=== PATIENT | female | born 1955 | race Caucasian/White ===

== ENCOUNTER → 2016-07-16 | Outpatient (CLI) | payer BC ==
--- NOTE | 2016-07-16 08:32 | MR ---
EXAMINATION TYPE: MR cervical spine wo/w con DATE OF EXAM: 07/16/2016 8:00 AM COMPARISON: 12/11/2013 HISTORY: 57-year-old female Radiculopathy, Multiple sclerosis, HERRMANN. Technique: Multiplanar, multisequence images of the cervical spine were obtained before and after adm inistration of 14 mL intravenous MultiHance gadolinium contrast. FINDINGS: No craniocervical junction abnormality, predental space widening, or prevertebral soft tissue swellin g. 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 Moderate multilevel degenerative disc disease characterized by disc desiccation and disc osteophyte c omplex formation. Additional scattered facet and uncovertebral joint arthropathy. Alignment is maintained. At C2-C3, there is bilateral facet arthropathy without significant spinal canal or neuroforaminal shukri nosis. At C3-C4, there is disc osteophyte complex with uncovertebral joint and facet arthropathy. Changes re sult in continued moderate to severe spinal canal stenosis with cord compression and questionable sli ght increased cord signal, sagittal T2 image 7. This is not clearly confirmed on the axial series. No definite suspicious enhancement of the cervical cord when correlated with the axial postcontrast ser ies. There is mild right-sided neuroforaminal stenosis. At C4-C5, there is disc osteophyte complex with uncovertebral joint and facet degenerative change. Ch anges result in mild to moderate right neuroforaminal stenosis with continued moderate spinal canal s tenosis with abutment and flattening of both the dorsal and ventral cord but no discrete cord signal abnormality. At C5-C6, there is broad-based disc osteophyte complex with contiguous uncovertebral joint arthropath y especially on the right. Additional facet arthropathy. Changes result in moderate right neuroforami nal stenosis and continued moderate spinal canal stenosis with abutment and slight flattening of both the dorsal and ventral cord. No discrete cord signal abnormality. At the congenitally fused C6-C7 level, no significant spinal canal or neuroforaminal stenosis. At C7-T1, there is facet degenerative change and uncovertebral joint spurring. Changes result in mild narrowing of the right-sided neuroforamen and mild spinal canal stenosis that does not significantly abut or flatten the cervical cord. No prevertebral or paravertebral soft tissue abnormality seen. IMPRESSION: 1. Redemonstrated moderate multilevel disc/endplate degenerative change with disc osteophyte complex formation particularly from C3 through C6 levels. Additional facet and uncovertebral joint arthropath y. 2. Changes result in similar moderate to severe spinal canal stenosis at C3-C4 with cord compression. Possible early myelopathic cord signal change at this level not clearly confirmed on the axial serie s. 3. Similar moderate spinal canal stenoses at C4-C5 and C5-C6 mildly impinging the cord. No discrete c ord signal change at these levels. 4. Variable mild to moderate neuroforaminal stenoses as outlined above, greatest on the right at C5-C 6.
== END ==
LOC: RADMRIMAIN 07:16
PROVIDERS: ATTEND Psychiatry & Neurology Neurology
DX: M48.02 Spinal stenosis, cervical region (principal); M99.71 Connective tissue and disc stenosis of intervertebral foramina of cervical region; M50.10 Cervical disc disorder with radiculopathy, unspecified cervical region; M46.82 Other specified inflammatory spondylopathies, cervical region
CPT/HCPCS: 72156; A9577

== ENCOUNTER → 2016-07-28 | Outpatient (CLI) | payer BC ==
--- NOTE | 2016-07-28 08:23 | US ---
EXAMINATION TYPE: US abdomen complete DATE OF EXAM: 07/28/2016 7:33 AM COMPARISON: CT abdomen March 22, 2010 CLINICAL HISTORY: Abd Pain R10.9. EXAM MEASUREMENTS: Liver Length: 16.9 cm Gallbladder Wall: 0.3 cm CBD: 0.3 cm Spleen: 10.5 cm Right Kidney: 9.4 x 4.1 x 4.5 cm Left Kidney: 9.1 x 4.4 x 4.8 cm TECHNOLOGIST IMPRESSION: Pancreas: visualized portions wnl, limited by overlying midline bowel gas Liver: wnl Gallbladder: multiple echogenic shadowing stones Evidence for sonographic Larios's sign: no CBD: visualized portions wnl, limited by overlying bowel gas Spleen: wnl Right Kidney: 1.7 x 1.5 x 1.4cm hypoechoic area inferior pole Left Kidney: visualized portions wnl, superior pole limited by overlying bowel gas Upper IVC: wnl Abd Aorta: visualized portions wnl, mid portion limited by overlying bowel gas The liver is homogenous. The intrahepatic portion of the IVC and visualized abdominal aorta are with in normal limits. There are multiple mobile shadowing gallstones. There is no pericholecystic fluid collection or abnormal gallbladder wall thickening Common bile duct is unremarkable. The visualized portions of the pancreas are homogenous. The spleen is unremarkable. Kidneys are symmetric and blanca e of hydronephrosis. A 1.7 cm slightly lobulated anechoic lesion or pole level right kidney is felt t o reflect simple cyst correlates with prior CT. IMPRESSION: Suboptimal study as noted above, there are gallstones without secondary ultrasound eviden ce for acute cholecystitis
== END | disposition home or self-care (01) ==
LOC: RADUSWWP 07:01
PROVIDERS: ATTEND Family Medicine
DX: K80.20 Calculus of gallbladder without cholecystitis without obstruction (principal)
CPT/HCPCS: 76700

== ENCOUNTER → 2016-09-19 | Outpatient (CLI) | payer BC ==
--- NOTE | 2016-09-19 11:30 | US ---
EXAMINATION TYPE: US thyroid st tissue head/neck DATE OF EXAM: 09/19/2016 11:03 AM COMPARISON: NONE CLINICAL HISTORY: R22.0 swelling,mass. Abnormal thyroid labs GLAND SIZE: Right Lobe: 2.4 x 0.8 x 0.7 cm Overall Parenchyma: heterogenous Left Lobe: 1.7 x 0.5 x 0.6 cm Overall Parenchyma: heterogeneous Isthmus Thickness: 0.2 cm NODULES RIGHT: # of nodules measured on right: 0 LEFT: # of nodules measured on left: 0 ISTHMUS: # of nodules measured in the isthmus: 0 Bilateral neck scanned, lymph node left neck = 1.1 x 0.7cm Difficult to visualize thyroid gland bilaterally due to its small size IMPRESSION: NORMAL THYROID ULTRASOUND.
--- NOTE | 2016-09-19 15:49 | NM ---
EXAMINATION TYPE: NM parathyroid w/spect DATE OF EXAM: 09/19/2016 3:31 PM COMPARISON: Same day thyroid ultrasound. MRI cervical spine July 16, 2016. HISTORY: Abnormal lab values TECHNIQUE: Following administration of 25.2 mCi Tc99m Sestamibi. Anterior projection images of the neck and ches t were obtained 10 minutes and 3 hours post injection. SPECT images of the neck and chest were obtai senait and reconstructed in three axes. FINDINGS: There is satisfactory uptake in small size thyroid gland. There is focal area of nonwashout at level of left thyroid lobe confirmed on SPECT imaging near lower pole level in which focal parath yroid adenoma cannot be excluded. No corresponding abnormal extra thyroid soft tissue nodule however is clearly seen on comparison same day ultrasound and recent MRI cervical spine. Normal uptake: There is physiological tracer uptake in the salivary glands. IMPRESSION: Abnormal nuclear medicine study in which parathyroid adenoma near level of lower pole left thyroid ca nnot be excluded though no corresponding abnormality is seen on same day ultrasound or recent MRI cer vical spine. Small thyroid gland is noted.
== END | disposition home or self-care (01) ==
LOC: RADUSMAIN 10:33
PROVIDERS: ATTEND Surgery
DX: R94.6 Abnormal results of thyroid function studies (principal); R22.0 Localized swelling, mass and lump, head
CPT/HCPCS: 76536; 78071

== ENCOUNTER 2016-10-04 11:34 | Day surgery (SDC) | payer BC ==
[2016-10-03 08:56] VITALS: BMI 31.3
[~2016-10-04 11:34] MED LIST: DEXAMETHASONE SOD PHOSPHATE 10 MG/ML 1 ML VIAL IV ONE; LACTATED RINGERS 1,000 ML IV SCH; ONDANSETRON 4 MG/2 ML VIAL IVP ONE; Pre Op ABX Message 1 EACH MISC MISCELLANE ONE
[2016-10-04] MEDS ORDERED: HEPARIN SODIUM,PORCINE 5,000 UNIT/ML 1 ML VIAL SQ ONE (12:55)
[2016-10-04] MEDS ORDERED: ONDANSETRON 4 MG/2 ML VIAL ONE (13:34)
[2016-10-04] MEDS ORDERED: MIDAZOLAM 2 MG/2 ML VIAL ONE (13:34)
[2016-10-04] MEDS ORDERED: SUCCINYLCHOLINE CHLORIDE 100 MG/5 ML SYR IV ONE (13:34)
[2016-10-04] MEDS ORDERED: NEOSTIGMINE 1 MG/ML 10 ML VIAL ONE (13:34)
[2016-10-04] MEDS ORDERED: PROPOFOL 10 MG/ML 20 ML VIAL IV ONE (13:34)
[2016-10-04] MEDS ORDERED: ROCURONIUM BROMIDE 10 MG/ML 10 ML VIAL IV ONE (13:34)
[2016-10-04] MEDS ORDERED: LIDOCAINE 1% INJ 10MG/ML (20 ML MDV) ONE (13:34)
[2016-10-04] MEDS ORDERED: ceFAZolin 1,000 MG VIAL ONE (13:34)
[2016-10-04] MEDS ORDERED: GLYCOPYRROLATE 0.2 MG/ML 2 ML VIAL ONE (13:34)
[2016-10-04] MEDS ORDERED: fentaNYL (PF) 50 MCG/ML 2 ML AMP ONE (13:34)
[2016-10-04] MEDS ORDERED: SODIUM CHLORIDE 0.9% 50 ML with ceFAZolin 2,000 MG IV ONE ×2 (13:46)
[2016-10-04] MEDS ORDERED: LIDOCAINE 1% (PF) 10 MG/ML (30 ML SDV) SQ ONE ×2 (13:48)
[2016-10-04] MEDS ORDERED: LACTATED RINGERS 1,000 ML IV ONE (13:52)
--- NOTE | 2016-10-04 14:53 | P.PCN ---
Date of Procedure: 10/04/16 Preoperative Diagnosis: Symptomatic cholelithiasis Postoperative Diagnosis: Same Procedure(s) Performed: Laparoscopic cholecystectomy Implants: Anesthesia: LATOSHA Surgeon: Sydney Clarke Estimated Blood Loss (ml): 10 IV fluids (ml): 550 Pathology: other (Gallbladder) Condition: stable Disposition: PACU Indications for Procedure: Symptomatic cholelithiasis Operative Findings: Distended gallbladder with cholelithiasis Description of Procedure: Patient was taken to the operating room and following induction of general anesthesia the abdomen was prepped and draped in a sterile fashion. Infraumbilical incision was made and carried down to the fascia of the anterior abdominal wall. The fascia was elevated and was opened. The balloon trocar was placed under direct visualization. The abdomen was insufflated to 15 mmHg pressure. #5 port was placed in the right upper quadrant laterally and the gallbladder was retracted and a second #5 port was placed in the mid clavicular line for retraction of the gallbladder near the neck. A #10 port was placed just to the left of the midline in the midepigastric area. Through this port the cystic duct and cystic artery were dissected free. The cystic duct and cystic artery were well identified this was stapled and divided. The gallbladder was dissected free from the liver bed using the electrocautery device. A posterior arterial branch was noted entering the gallbladder and this was stapled. The gallbladder continued to be dissected free until it was free from the liver bed, before final removal the Was then completely removed from the gallbladder fossa and placed in a Pleatman sac. Was brought out through the #10 port site. At this time the #10 port site was closed using a Mikey Lerner device. The #5 ports were removed under direct visualization no evidence of bleeding was identified. The infraumbilical trocar was removed and the fascia was closed using 0 Vicryl suture. Skin incisions were closed with 4-0 Monocryl. The patient tolerated the procedure in stable condition. All instrument and sponge counts were correct at the end of the case. Following this the gallbladder fossa was well irrigated and a small area of oozing was noted on the liver bed and this was cauterized. Following this no further oozing or bleeding was identified. The gallbladder was sent to pathology. Patient tolerated the procedure in stable condition.
--- NOTE | 2016-10-04 14:54 | P.DS ---
Providers Attending physician: Sydney Clarke Primary care physician: Stated None Plan - Discharge Summary New Discharge Prescriptions: HYDROcodone/APAP 5-325MG [[place] 5] 1 - 2 each PO Q4H PRN #20 tab PRN Reason: Pain Discharge Medication List Alendronate Sodium [Fosamax] 70 mg PO WEEKLY 12/03/13 [History] Clopidogrel [Plavix] 75 mg PO DAILY 12/03/13 [History] Diltiazem Cd [Cardizem CD] 240 mg PO QAM 12/03/13 [History] Hydrocodone/Acetaminophen [Vicodin Es 7.5-300 mg Tablet] 1 each PO Q6HR [History] Meclizine [Antivert] 25 mg PO BID PRN 12/03/13 [History] Modafinil [Provigil] 200 mg PO QAM 12/03/13 [History] Nortriptyline HCl [Pamelor] 10 mg PO HS 12/03/13 [History] Olmesartan [Benicar] 20 mg PO QAM 12/03/13 [History] Omeprazole [PriLOSEC] 20 mg PO AC-BRKFST 12/03/13 [History] Cholecalciferol [Vitamin D3] 2,000 unit PO DAILY 11/13/15 [History] Levothyroxine Sodium [Synthroid] 125 mcg PO DAILY 11/13/15 [History] HYDROcodone/APAP 5-325MG [[place] 5] 1 - 2 each PO Q4H PRN #20 tab 10/04/16 [Rx] Follow up Appointment(s)/Referral(s): Sydney Clarke MD [STAFF PHYSICIAN] - 1 Week Discharge Disposition: HOME SELF-CARE
[2016-10-04 15:09] VITALS: TEMP 98
[2016-10-04] MEDS: HYDROmorphone 1 MG/ML 1 ML SYRINGE IVP PRN ×2 (15:15→15:28)
[2016-10-04 15:24] VITALS: RESP 18
[2016-10-04] MEDS ORDERED: HYDROcodone/APAP 5-325MG 1 EACH TAB PO ONE (16:20)
[2016-10-04 16:46] VITALS: BP 119/78; PULSE 85
== END 2016-10-04 17:29 | disposition home or self-care (01) ==
LOC: OR 11:34
PROVIDERS: ATTEND Surgery
DX: K80.10 Calculus of gallbladder with chronic cholecystitis without obstruction (principal); I10 Essential (primary) hypertension; E21.0 Primary hyperparathyroidism; I69.351 Hemiplegia and hemiparesis following cerebral infarction affecting right dominant side; Z82.3 Family history of stroke; G35 Multiple sclerosis; K21.9 Gastro-esophageal reflux disease without esophagitis; M81.0 Age-related osteoporosis without current pathological fracture; Z79.02 Long term (current) use of antithrombotics/antiplatelets; Z79.899 Other long term (current) drug therapy; Z88.1 Allergy status to other antibiotic agents; Z88.2 Allergy status to sulfonamides; Z88.8 Allergy status to other drugs, medicaments and biological substances
CPT/HCPCS: 88304; 47562; J2250; J1644; J1100; J2710; J2405; J0690 ×2; J2001 ×2; J3010; J1170; J0330; J2704

== ENCOUNTER 2016-12-25 11:50 | Emergency (ER) | payer BC ==
[2016-12-25] MEDS ORDERED: DIPH,PERTUS(ACELL)TETVAC-LF 0.5 ML VIAL IM ONE (12:24)
--- NOTE | 2016-12-25 12:56 | XR ---
EXAMINATION TYPE: XR ankle complete RT , 3 VIEWS DATE OF EXAM ORDERED: 12/25/2016 HISTORY: Pain. COMPARISON: None. FINDINGS: No fracture, dislocation or joint effusion is seen. IMPRESSION: NORMAL RIGHT ANKLE.
[2016-12-25 13:22] VITALS: BP 150/84; PULSE 70; RESP 18; TEMP 98.2
--- NOTE | 2016-12-25 13:27 | ED ---
General Adult HPI - General Chief complaint: Extremity Injury, Lower Stated complaint: RT ANLKE INJURY FROM FALL DOWN 2 STEPS Time Seen by Provider: 12/25/16 12:10 Source: patient, family, RN notes reviewed Mode of arrival: wheelchair Limitations: no limitations - History of Present Illness Initial comments: 60-year-old female presents status post trip and fall. Patient was going down steps and tripped rolling her right ankle. Pain is sharp in nature, minimal with no movement. Patient was able to walk after the accident. Patient states she bent her ankle towards the inside. Denies any other significant trauma. She does have an abrasion noted on the left knee. Denies back pain denies abdominal pain. Denies chest pain or shortness of breath. Denies head or neck injury. There is no loss of consciousness. - Related Data Home Medications Medication Instructions Recorded Confirmed Alendronate Sodium [Fosamax] 70 mg PO WEEKLY 12/03/13 10/04/16 Clopidogrel [Plavix] 75 mg PO DAILY 12/03/13 10/04/16 Diltiazem Cd [Cardizem CD] 240 mg PO QAM 12/03/13 10/04/16 Hydrocodone/Acetaminophen [Vicodin 1 each PO Q6HR 12/03/13 10/04/16 Es 7.5-300 mg Tablet] Meclizine [Antivert] 25 mg PO BID PRN 12/03/13 10/04/16 Modafinil [Provigil] 200 mg PO QAM 12/03/13 10/04/16 Nortriptyline HCl [Pamelor] 10 mg PO HS 12/03/13 10/04/16 Olmesartan [Benicar] 20 mg PO QAM 12/03/13 10/04/16 Omeprazole [PriLOSEC] 20 mg PO AC-BRKFST 12/03/13 10/04/16 Cholecalciferol [Vitamin D3] 2,000 unit PO DAILY 11/13/15 10/04/16 Levothyroxine Sodium [Synthroid] 125 mcg PO DAILY 11/13/15 10/04/16 Previous Rx's Medication Instructions Recorded HYDROcodone/APAP 5-325MG [[place] 5] 1 - 2 each PO Q4H PRN #20 tab 10/04/16 Allergies Allergy/AdvReac Type Severity Reaction Status Date / Time doxycycline Allergy upset Verified 12/25/16 12:02 stomach doxycycline hyclate Allergy Vomiting Verified 12/25/16 12:02 [From Vibra-Tabs] Sulfa (Sulfonamide Allergy Vomiting Verified 12/25/16 12:02 Antibiotics) isosorbide [From Imdur] AdvReac headache Verified 12/25/16 12:02 Review of Systems ROS Statement: Those systems with pertinent positive or pertinent negative responses have been documented in the HPI. ROS Other: All systems not noted in ROS Statement are negative. Past Medical History Past Medical History: CVA/TIA, GERD/Reflux, Hypertension, Osteoarthritis (OA), Thyroid Disorder Additional Past Medical History / Comment(s): MS, migranes, 6 TIA , hiatal hernia, osteoporosis History of Any Multi-Drug Resistant Organisms: None Reported Past Surgical History: Cholecystectomy, Hysterectomy, Orthopedic Surgery Additional Past Surgical History / Comment(s): LEFT KNEE SX; RIGHT ELBOW/ SHOULDER SX; eye surgery bilat, bilat carpel tunnel Past Anesthesia/Blood Transfusion Reactions: Postoperative Nausea & Vomiting ( PONV) Past Psychological History: No Psychological Hx Reported Smoking Status: Never smoker Past Alcohol Use History: None Reported Past Drug Use History: None Reported - Past Family History Mother Family Medical History: Cancer, Deep Vein Thrombosis (DVT) Additional Family Medical History / Comment(s): KIDNEY Father Family Medical History: Cancer Additional Family Medical History / Comment(s): PROSTATE General Exam Limitations: no limitations General appearance: alert, in no apparent distress Head exam: Present: atraumatic, normocephalic Eye exam: Present: normal appearance, PERRL ENT exam: Present: normal exam Neck exam: Present: normal inspection, full ROM. Absent: tenderness Respiratory exam: Present: normal lung sounds bilaterally. Absent: respiratory distress Cardiovascular Exam: Present: regular rate. Absent: normal rhythm GI/Abdominal exam: Present: soft. Absent: distended, tenderness Extremities exam: Present: normal inspection, tenderness, joint swelling (Right ankle shows tenderness over the lateral malleolus, and insertion site of the fibular talo ligament. There is some associated swelling. Patient also has superficial abrasion to the left knee) Neurological exam: Present: alert, oriented X3 Psychiatric exam: Present: normal affect, normal mood Skin exam: Present: warm, dry. Absent: cyanosis, diaphoretic Course Vital Signs 12/25/16 12/25/16 12:00 13:20 Temperature 98.8 F 98.2 F Pulse Rate 75 70 Respiratory 20 18 Rate Blood Pressure 142/75 150/84 O2 Sat by Pulse 98 99 Oximetry Medical Decision Making - Medical Decision Making 60-year-old female presenting with acute onset right ankle pain. Patient developed this pain after a trip and fall. No other injuries noted. On examination she does have tenderness over the lateral malleolus with some associated soft tissue swelling. X-ray shows no acute bony abnormality. Patient had abrasion over the left knee, tetanus was updated. The bony tenderness over the left knee. Distal pulses intact. Patient does have follow- up with orthopedic surgery. She is placed in an Han wrap, she has Hazard at home which she takes for chronic pain she will use these as she is unable to take Motrin. Diagnosis: Right ankle sprain Disposition Clinical Impression: Ankle sprain Disposition: HOME SELF-CARE Condition: Good Instructions: Ankle Sprain (ED) Referrals: All Greenberg MD [Primary Care Provider] - 1-2 days Robby Fuentes DO [Doctor of Osteopathic Medicine] - 1-2 days
== END 2016-12-25 13:34 | disposition home or self-care (01) ==
LOC: EC 11:50
DX: S93.401A Sprain of unspecified ligament of right ankle, initial encounter (principal); K21.9 Gastro-esophageal reflux disease without esophagitis; I10 Essential (primary) hypertension; M19.90 Unspecified osteoarthritis, unspecified site; E07.9 Disorder of thyroid, unspecified; M81.0 Age-related osteoporosis without current pathological fracture; Z86.73 Personal history of transient ischemic attack (TIA), and cerebral infarction without residual deficits; Z23 Encounter for immunization; Z79.01 Long term (current) use of anticoagulants; Z79.891 Long term (current) use of opiate analgesic; Z79.899 Other long term (current) drug therapy; Z88.1 Allergy status to other antibiotic agents; Z88.2 Allergy status to sulfonamides; Z88.8 Allergy status to other drugs, medicaments and biological substances; W01.0XXA Fall on same level from slipping, tripping and stumbling without subsequent striking against object, initial encounter
CPT/HCPCS: 90471; 90715; 99283

== ENCOUNTER → 2017-01-19 | Outpatient (CLI) | payer BC | END | disposition home or self-care (01) | LOC: LABPAT 14:06 | PROVIDERS: ATTEND Surgery | DX: Z01.812 Encounter for preprocedural laboratory examination (principal) | CPT/HCPCS: 36415; 82310; 83970 ==

== ENCOUNTER 2017-01-24 07:58 | Observation (INO) | payer BC ==
[2017-01-13 16:11] VITALS: BMI 31.7
[~2017-01-24 07:58] MED LIST changes: +HEPARIN SODIUM,PORCINE 5,000 UNIT/ML 1 ML VIAL SQ ONE; +LIDOCAINE 1% 20 ML VIAL (10MG/ML) FOR IV START INTRADERMA PRN; +SCOPOLAMINE 1.5MG/72HR PATCH TRANSDERM ONE
[2017-01-24] MEDS ORDERED: HEPARIN SODIUM,PORCINE 5,000 UNIT/ML 1 ML VIAL SQ ONE (09:09)
--- NOTE | 2017-01-24 09:13 | P.PN ---
Progress Note - Text The patient was seen and evaluated by Dr. Noland and as per the patient was recommended to undergo surgical intervention. Patient's MRI of her C-spine has been reviewed with radiology as well as the patient. Patient has been seen by Dr. Joy from neurology. She has no symptoms related to the cervical spine chamges. We have discussed postponing surgery and evaluation by neurosurgery however she does not wish this to be done. She has no symptoms of cervical spine compression she understands that her neck will be extended and that this could exacerbate compression-like symptoms however she wishes to proceed. She also understands the risk including bleeding and infection reaction to the anesthetic and possibility that we will not find a parathyroid adenoma. Despite these risks she wishes to proceed.
[2017-01-24] MEDS ORDERED: NEOSTIGMINE 1 MG/ML 10 ML VIAL ONE (10:08)
[2017-01-24] MEDS ORDERED: MIDAZOLAM 2 MG/2 ML VIAL ONE (10:08)
[2017-01-24] MEDS ORDERED: GLYCOPYRROLATE 0.2 MG/ML 2 ML VIAL ONE (10:08)
[2017-01-24] MEDS ORDERED: PROPOFOL 10 MG/ML 20 ML VIAL IV ONE (10:08)
[2017-01-24] MEDS ORDERED: fentaNYL (PF) 50 MCG/ML 2 ML AMP ONE (10:08)
[2017-01-24] MEDS ORDERED: LIDOCAINE 1% INJ 10MG/ML (20 ML MDV) ONE (10:08)
[2017-01-24] MEDS ORDERED: SUCCINYLCHOLINE CHLORIDE 100 MG/5 ML SYR IV ONE (10:08)
[2017-01-24] MEDS ORDERED: ROCURONIUM BROMIDE 10 MG/ML 10 ML VIAL IV ONE (10:08)
[2017-01-24] MEDS ORDERED: SODIUM CHLORIDE 0.9% 50 ML with ceFAZolin 1,000 MG IV ONE ×2 (10:38)
[2017-01-24] MEDS ORDERED: LACTATED RINGERS 1,000 ML IV ONE (11:21)
[2017-01-24] MEDS ORDERED: GELATIN SPONGE,ABSORB (LARGE) 1 EACH SPONGE TOPICAL ONE (11:22)
[2017-01-24] MEDS ORDERED: THROMBIN (BOVINE) 5,000 UNIT VIAL TOPICAL ONE (11:24)
[2017-01-24] MEDS: HYDROmorphone 1 MG/ML 1 ML SYRINGE IVP PRN ×2 (12:08→12:57)
[2017-01-24] MEDS ORDERED: ONDANSETRON 4 MG/2 ML VIAL IVP PRN (12:12)
[2017-01-24] MEDS ORDERED: HYDROcodone/APAP 5-325MG 1 EACH TAB PO PRN (12:12)
[2017-01-24] MEDS ORDERED: NALOXONE 0.4 MG/ML 1 ML VIAL IV PRN (12:12)
--- NOTE | 2017-01-24 12:12 | P.OP ---
Date of Procedure: 01/24/17 Preoperative Diagnosis: Primary hyperparathyroidism Postoperative Diagnosis: Parathyroid adenoma Procedure(s) Performed: Neck exploration, resection of inferior pole parathyroid adenoma on the left Implants: Anesthesia: LATOSHA Surgeon: Sydney Clarke Automobile Body Repairer Helper #1: Bong Rider Estimated Blood Loss (ml): 5 IV fluids (ml): 700 Pathology: other (Left inferior pole parathyroid tissue, tissue inferior to the left lobe of the thyroid) Condition: stable Disposition: PACU Indications for Procedure: Primary hyperparathyroidism Operative Findings: Enlarged left inferior pole parathyroid Description of Procedure: Patient was taken to the operating room and following induction of general anesthesia the area of the sternum was prepped using alcohol. Nimm stimulator probes were placed. The neck was then prepped and draped in a sterile fashion. The patient was placed in a modified beachchair position and some Trendelenburg. A rolled pack was placed behind her back. Following prepping and draping the patient a collar incision was made. This was carried through skin and subcutaneous tissue and through the platysma. Superior and inferior skin flaps were developed. The strap muscles were in the midline. The left lobe of the thyroid was approached initially. There was noted to be very small. At the inferior aspect there was a prominence and this was removed and sent for frozen section evaluation. Additional tissue that was somewhat suspicious was identified and this was removed and sent for frozen section evaluation this was removed. The larger piece extended intrathyroidally and this was removed from the inferior pole of the thyroid. All residual pieces removed were consistent with parathyroid tissue and the last piece removed was consistent with parathyroid adenoma. It was believed that all of these were portion of the inferior parathyroid. The area of the superior parathyroid was identified a very tiny gland was identified and this was not disturbed. The recurrent laryngeal nerve was identified on the left side and carefully preserved. This was identified using visualization as well as the nerve stimulator. No adenopathy of concern was identified on either side. The right lobe of the thyroid was then identified and rotated medially. No enlarged parathyroid tissue was identified in the inferior or superior locations. The neck was somewhat fatty and no parathyroids were seen. The thyroid was very small and ptotic. It appeared to be fatty and somewhat inflamed. After we were assured that hemostasis was attained a small piece of Gelfoam and thrombin was placed in the left lower lobe area. A [place] drain was placed. The strap muscles were closed in the midline. This was followed by closure of the platysma using a Vicryl suture. The skin was closed using a 4-0 Monocryl. The drain was secured using a nylon suture. The patient tolerated the procedure in stable condition. All instrument and sponge counts were correct at the end of the case.
[2017-01-24] MEDS ORDERED: MECLIZINE 25 MG TAB PO PRN (12:22)
[2017-01-24] MEDS: HEPARIN SODIUM,PORCINE 5,000 UNIT/ML 1 ML VIAL SQ SCH (17:08)
--- NOTE | 2017-01-24 17:26 | P.CONS ---
History of Present Illness - Reason for Consult Consult date: 01/24/17 Review of Systems Ears, nose, mouth and throat: Reports sore throat Musculoskeletal: Reports neck pain Musculoskeletal: right: ankle pain Past Medical History Past Medical History: CVA/TIA, GERD/Reflux, Hypertension, Osteoarthritis (OA), Thyroid Disorder Additional Past Medical History / Comment(s): MS, migranes, 6 TIA , hiatal hernia, osteoporosis History of Any Multi-Drug Resistant Organisms: None Reported Past Surgical History: Cholecystectomy, Hysterectomy, Orthopedic Surgery Additional Past Surgical History / Comment(s): LEFT KNEE SX; RIGHT ELBOW/ SHOULDER SX; eye surgery bilat, bilat carpel tunnel Past Anesthesia/Blood Transfusion Reactions: Postoperative Nausea & Vomiting ( PONV) Smoking Status: Never smoker - Past Family History Mother Family Medical History: Cancer, Deep Vein Thrombosis (DVT) Additional Family Medical History / Comment(s): KIDNEY Father Family Medical History: Cancer Additional Family Medical History / Comment(s): PROSTATE Medications and Allergies Home Medications Medication Instructions Recorded Confirmed Type Alendronate Sodium [Fosamax] 70 mg PO WEEKLY 12/03/13 01/24/17 History Clopidogrel [Plavix] 75 mg PO DAILY 12/03/13 01/24/17 History Diltiazem Cd [Cardizem CD] 240 mg PO QAM 12/03/13 01/24/17 History Hydrocodone/Acetaminophen [Vicodin 1 each PO Q6HR PRN 12/03/13 01/24/17 History Es 7.5-300 mg Tablet] Meclizine [Antivert] 25 mg PO BID PRN 12/03/13 01/24/17 History Modafinil [Provigil] 200 mg PO QAM 12/03/13 01/24/17 History Nortriptyline HCl [Pamelor] 10 mg PO HS 12/03/13 01/24/17 History Olmesartan [Benicar] 20 mg PO QAM 12/03/13 01/24/17 History Omeprazole [PriLOSEC] 20 mg PO AC-BRKFST 12/03/13 01/24/17 History Cholecalciferol [Vitamin D3] 2,000 unit PO DAILY 11/13/15 01/24/17 History Levothyroxine Sodium [Synthroid] 125 mcg PO DAILY 11/13/15 01/24/17 History Allergies Allergy/AdvReac Type Severity Reaction Status Date / Time doxycycline Allergy upset Verified 01/24/17 08:23 stomach doxycycline hyclate Allergy Vomiting Verified 01/24/17 08:23 [From Vibra-Tabs] Sulfa (Sulfonamide Allergy Vomiting Verified 01/24/17 08:23 Antibiotics) isosorbide [From Imdur] AdvReac MIGRAINE Verified 01/24/17 08:23 HEADACHE Physical Exam Vitals: Vital Signs Temp Pulse Pulse Pulse Resp BP BP 01/24/17 16:00 65 18 105/69 01/24/17 15:00 67 18 104/60 01/24/17 14:30 78 18 113/64 01/24/17 14:15 84 18 114/77 01/24/17 14:00 78 18 128/76 01/24/17 13:45 97.7 F 78 18 119/76 01/24/17 13:15 76 16 140/79 01/24/17 13:00 79 16 132/75 01/24/17 12:45 84 16 121/63 01/24/17 12:30 87 16 110/59 01/24/17 12:19 98.2 F 78 16 108/56 01/24/17 08:24 98.0 F 78 16 122/78 Pulse Ox 01/24/17 16:00 98 01/24/17 15:00 97 01/24/17 14:30 98 01/24/17 14:15 96 01/24/17 14:00 97 01/24/17 13:45 98 01/24/17 13:15 97 01/24/17 13:00 99 01/24/17 12:45 95 01/24/17 12:30 97 01/24/17 12:19 93 L 01/24/17 08:24 97 Intake and Output 01/24/17 01/24/17 01/24/17 06:59 14:59 22:59 Intake Total 1500 360 Output Total 5 450 Balance 1495 -90 Intake: IV 1500 Oral 360 Output: Urine 450 Estimated Blood Loss 5 - Constitutional General appearance: mild distress - EENT Dressing to anterior neck Eyes: PERRLA Ears: bilateral: normal - Neck Limited range of motion - Respiratory Respiratory: bilateral: CTA - Cardiovascular Rhythm: regular - Gastrointestinal General gastrointestinal: soft - Integumentary Integumentary: normal - Neurologic Neurologic: CNII-XII intact - Psychiatric Psychiatric: A&O x's 3, appropriate affect, intact judgment & insight Assessment and Plan Plan: Assessment Primary hyperparathyroidism Post parathyroid adenoma resection History of CVA/TIA History of migraines History of GERD Hypertension Osteoporosis Right ankle fracture under the care of Dr. Barker Plan Monitor labs Monitor for changes in condition Dr. Noland on consult
[2017-01-24] MEDS ORDERED: LIDOCAINE 5% PATCH TOPICAL SCH (18:00)
[2017-01-24 20:10] VITALS: RESP 16
[2017-01-24] MEDS: DEXTROSE 5%-0.45% NACL 1,000 ML IV SCH (20:11)
[2017-01-24] MEDS: HYDROmorphone 1 MG/ML 1 ML SYRINGE IV PRN (23:22)
[2017-01-25] MEDS: HEPARIN SODIUM,PORCINE 5,000 UNIT/ML 1 ML VIAL SQ SCH ×2 (03:47→07:48)
[2017-01-25] MEDS: DEXTROSE 5%-0.45% NACL 1,000 ML IV SCH ×2 (05:27→13:51)
[2017-01-25] MEDS: HYDROmorphone 1 MG/ML 1 ML SYRINGE IV PRN (05:37)
[2017-01-25] MEDS ORDERED: LEVOTHYROXINE 125 MCG TAB PO SCH (06:30)
[2017-01-25] MEDS ORDERED: PANTOPRAZOLE 40 MG TABLET PO SCH (07:30)
[2017-01-25] MEDS ORDERED: CALCIUM CARB-VIT D 500MG-200UN 1 EACH TAB PO SCH (07:30)
[2017-01-25 08:15] LABS: Calcium 8.9 mg/dL (8.4-10.2); Magnesium 1.7 mg/dL (1.6-2.3); Phosphorous 3.8 mg/dL (2.5-4.5)
[2017-01-25] MEDS ORDERED: LOSARTAN 50 MG TAB PO SCH (09:00)
[2017-01-25] MEDS ORDERED: DILTIAZEM CD 240 MG CAP.ER.24H PO SCH (09:00)
[2017-01-25] MEDS ORDERED: CHOLECALCIFEROL 1,000 UNIT TAB PO SCH (09:00)
[2017-01-25] MEDS ORDERED: MODAFINIL 200 MG TAB PO SCH (09:00)
--- NOTE | 2017-01-25 11:12 | P.PN ---
Subjective Principal diagnosis: Patient resting comfortably in bed without complaint. States swallowing and deep inspiration easier than yesterday calcium stable Objective - Vital Signs Vital signs: Vital Signs Temp 97.5 F L 01/25/17 08:00 Pulse 68 01/25/17 08:00 Resp 16 01/25/17 08:00 BP 109/65 01/25/17 08:00 Pulse Ox 98 01/25/17 08:00 Intake & Output 01/24/17 01/25/17 01/25/17 18:59 06:59 18:59 Intake Total 1860 240 Output Total 455 1650 700 Balance 1405 -1650 -460 Intake: IV 1500 Oral 360 240 Output: Urine 450 1650 700 Estimated Blood Loss 5 Other: Voiding Method Toilet # Voids 1 - Constitutional General appearance: Present: mild distress - EENT Eyes: Present: PERRLA Ears: bilateral: normal - Neck Details: Muscular tension noted around cerviacl spine. Intact dressing noted to anterior neck - Respiratory Respiratory: bilateral: CTA - Cardiovascular Rhythm: regular - Gastrointestinal General gastrointestinal: Present: soft - Integumentary Integumentary: Present: normal - Neurologic Neurologic: Present: CNII-XII intact - Psychiatric Psychiatric: Present: A&O x's 3, appropriate affect, intact judgment & insight - Labs Labs: Abnormal Lab Results - Last 24 Hours (Table) 01/24/17 Range/Units 12:50 PTH Intact <5.5 L (14.0-72.0) pg/mL Assessment and Plan Plan: Assessment Mild hypotension this morning blood pressure medicines medication L History of CVA/TIA Migraines Primary hyperparathyroidism post parathyroid adenoma resection GERD Hypertension Osteoporosis Right ankle fracture under care of Dr. Barker Plan continue to monitor calcium levels Patient encouraged to do deep breathing exercise
--- NOTE | 2017-01-25 12:35 | P.DS ---
Providers Date of admission: 01/25/17 06:01 Expected date of discharge: 01/25/17 Attending physician: Sydney Clarke Consults: 01/24/17 12:15 Consult Physician Routine Consulting Provider: Sarah Noland Consult Reason/Comments: Parathyroid resection Do you want consulting provider notified?: Yes 01/24/17 12:16 Consult Physician Routine Consulting Provider: All Greenberg Consult Reason/Comments: medical managment Do you want consulting provider notified?: Yes Primary care physician: All Greenberg Hospital Course: 61-year-old female with the diagnosis of primary hyperparathyroidism and parathyroid adenoma. The patient elected to undergo neck exploration, resection of an inferior pole parathyroid adenoma on the left. Patient has been followed by Dr. Noland shipping and receiving coordinator in the outpatient setting. There is no hoarseness to the voice. Patient's tolerating a diet. Endocrinology followed the calcium levels with recommendations noted and appreciated. On the day of discharge patient was felt to be hemodynamically stable and appropriate proceed with a discharge to home impression discharge diagnosis Primary hyperparathyroidism with parathyroid adenoma Postop Neck exploration, resection of inferior pole parathyroid adenoma on the left Enlarged left inferior pole parathyroid Essential hypertension Osteoarthritis The above impression and plan of care have been discussed and directed by signing physician. Neva Edmonds nurse practitioner acting as scribe for signing physician. Plan - Discharge Summary New Discharge Prescriptions: New Calcium Carb-Vit D 500Mg-200Un [Oscal 500+D] 1 each PO DAILY #30 tablet Continue Olmesartan [Benicar] 20 mg PO QAM Omeprazole [PriLOSEC] 20 mg PO AC-BRKFST Modafinil [Provigil] 200 mg PO QAM Meclizine [Antivert] 25 mg PO BID PRN PRN Reason: Vertigo Hydrocodone/Acetaminophen [Vicodin Es 7.5-300 mg Tablet] 1 tab PO Q6HR PRN PRN Reason: Pain Nortriptyline HCl [Pamelor] 10 mg PO HS Diltiazem Cd [Cardizem CD] 240 mg PO QAM Clopidogrel [Plavix] 75 mg PO DAILY Alendronate Sodium [Fosamax] 70 mg PO TU Levothyroxine Sodium [Synthroid] 125 mcg PO DAILY Cholecalciferol [Vitamin D3] 2,000 unit PO DAILY Discharge Medication List Alendronate Sodium [Fosamax] 70 mg PO TU 12/03/13 [History] Clopidogrel [Plavix] 75 mg PO DAILY 12/03/13 [History] Diltiazem Cd [Cardizem CD] 240 mg PO QAM 12/03/13 [History] Hydrocodone/Acetaminophen [Vicodin Es 7.5-300 mg Tablet] 1 tab PO Q6HR PRN 12/03 [History] Meclizine [Antivert] 25 mg PO BID PRN 12/03/13 [History] Modafinil [Provigil] 200 mg PO QAM 12/03/13 [History] Nortriptyline HCl [Pamelor] 10 mg PO HS 12/03/13 [History] Olmesartan [Benicar] 20 mg PO QAM 12/03/13 [History] Omeprazole [PriLOSEC] 20 mg PO AC-BRKFST 12/03/13 [History] Cholecalciferol [Vitamin D3] 2,000 unit PO DAILY 11/13/15 [History] Levothyroxine Sodium [Synthroid] 125 mcg PO DAILY 11/13/15 [History] Calcium Carb-Vit D 500Mg-200Un [Oscal 500+D] 1 each PO DAILY #30 tablet [Rx] Follow up Appointment(s)/Referral(s): Sydney Clarke MD [STAFF PHYSICIAN] - 1 Week Sarah Noland MD [STAFF PHYSICIAN] - 2 Weeks Ambulatory/Diagnostic Orders: Comprehensive Metabolic Panel [LAB.AMB] Location: Determined By Patient Discharge Disposition: HOME SELF-CARE
[2017-01-25 12:36] VITALS: BP 112/70; PULSE 76; TEMP 97.2
== END 2017-01-25 13:59 | disposition home or self-care (01) ==
LOC: OR 07:58 → 6PED 12:19 → OR 01-25 06:01 → 6PED 01-25 06:01
PROVIDERS: ADMIT Surgery; ATTEND Surgery
DX: D35.1 Benign neoplasm of parathyroid gland (principal); Z86.73 Personal history of transient ischemic attack (TIA), and cerebral infarction without residual deficits; M19.90 Unspecified osteoarthritis, unspecified site; I10 Essential (primary) hypertension; K21.9 Gastro-esophageal reflux disease without esophagitis; G35 Multiple sclerosis; M81.0 Age-related osteoporosis without current pathological fracture; K44.9 Diaphragmatic hernia without obstruction or gangrene; G43.909 Migraine, unspecified, not intractable, without status migrainosus; G40.909 Epilepsy, unspecified, not intractable, without status epilepticus; E21.0 Primary hyperparathyroidism; S82.891D Other fracture of right lower leg, subsequent encounter for closed fracture with routine healing; X58.XXXD Exposure to other specified factors, subsequent encounter; Z80.51 Family history of malignant neoplasm of kidney; Z80.42 Family history of malignant neoplasm of prostate; Z79.899 Other long term (current) drug therapy; Z79.83 Long term (current) use of bisphosphonates; Z79.02 Long term (current) use of antithrombotics/antiplatelets; Z88.1 Allergy status to other antibiotic agents; Z88.2 Allergy status to sulfonamides; Z88.8 Allergy status to other drugs, medicaments and biological substances
CPT/HCPCS: 88305; 82310 ×2; 83735; 84100; 88331; 83970; 60500; G0378; J1644 ×2; J1100; J2405; J1170 ×2; J0690

== ENCOUNTER → 2017-05-30 | Outpatient (CLI) | payer BC ==
[2017-05-30 14:30] LABS: ALT 35 U/L (9-52); AST 22 U/L (14-36); Albumin 4.6 g/dL (3.5-5.0); Alkaline Phosphatase 134 U/L (38-126); Anion Gap 14 mmol/L; Blood Urea Nitrogen 16 mg/dL (7-17); Calcium 9.8 mg/dL (8.4-10.2); Carbon Dioxide 28 mmol/L (22-30); Chloride 104 mmol/L (98-107); Glucose 110 mg/dL (74-99); Potassium 4.2 mmol/L (3.5-5.1); Sodium 146 mmol/L (137-145); Total Bilirubin 0.2 mg/dL (0.2-1.3); Total Protein 7.2 g/dL (6.3-8.2)
[2017-05-30 19:03] LABS: Vitamin D 25 Hydroxy 37.1 ng/mL (30.0-100.0)
[2017-05-30 20:57] LABS: Parathyroid Hormone Intact 47.4 pg/mL (14.0-72.0)
== END | disposition home or self-care (01) ==
LOC: LABWHC1 13:35
PROVIDERS: ATTEND Internal Medicine Endocrinology, Diabetes & Metabolism
DX: E21.0 Primary hyperparathyroidism (principal)
CPT/HCPCS: 36415; 80053; 82306; 83970

== ENCOUNTER → 2017-05-30 | Outpatient (CLI) | payer BC ==
--- NOTE | 2017-05-31 10:00 | MM ---
Reason for exam: screening (asymptomatic). Last mammogram was performed 1 year and 7 months ago. History: Patient is postmenopausal and is nulliparous. Family history of breast cancer in aunt. Physical Findings: A clinical breast exam by your physician is recommended on an annual basis and results should be correlated with mammographic findings. MG Screening Mammo w CAD Bilateral CC and MLO view(s) were taken. Prior study comparison: October 26, 2015, bilateral MG screening mammo w CAD. February 24, 2012, CAD bilateral diagnostic mammogram. The breast tissue is heterogeneously dense. This may lower the sensitivity of mammography. No suspicious calcifications are seen. No significant changes when compared with prior studies. ASSESSMENT: Benign, BI-RAD 2 RECOMMENDATION: Routine screening mammogram of both breasts in 1 year.
== END ==
LOC: RADMAMWWP 13:11
PROVIDERS: ATTEND Family Medicine
DX: R92.8 Other abnormal and inconclusive findings on diagnostic imaging of breast (principal)
CPT/HCPCS: 77067

== ENCOUNTER → 2017-06-13 | Outpatient (CLI) | payer BC ==
[2017-06-13 19:15] LABS: Total Protein,CSF 46 mg/dL (12-60)
[2017-06-13 20:03] LABS: Appearance,CSF Clear; CSF Tube Number 4; Nucleated Cells, CSF 1 u/L (0-5); Red Blood Cell,CSF 0 u/L (0-10)
[2017-06-19 14:19] LABS: IgG - CSF 1.8 mg/dL (0.0 - 3.4); IgG/Albumin Index (CSF) 0.45 (0.00 - 0.77); Immunoglobulin G 755 mg/dL (700 - 1600)
== END | disposition home or self-care (01) ==
LOC: LABWHC1 08:29
PROVIDERS: ATTEND Psychiatry & Neurology Pain Medicine
DX: G35 Multiple sclerosis (principal); R42 Dizziness and giddiness; H53.8 Other visual disturbances; R90.82 White matter disease, unspecified
CPT/HCPCS: 36415; 82040; 82042; 82784; 83873; 83916; 84157; 87476; 88108; 89050

== ENCOUNTER → 2017-06-21 | Outpatient (CLI) | payer BC ==
--- NOTE | 2017-06-21 15:42 | NM ---
EXAMINATION TYPE: NM DatScan Brain SPECT DATE OF EXAM: 06/21/2017 COMPARISON: MRI brain May 10, 2017 HISTORY: Parkinson's disease per order. TECHNIQUE: 10 drops of Lugol's solution was administered 1 hour prior to injection as a thyroid bloc jeff agent. After the administration of 4.58 mCi I-123 Ioflupane DaTscan. Images obtained 3.5 hours post injection. SPECT images of the brain were acquired with axial and coronal reconstructions. FINDINGS: The DaTSCAN demonstrates reduced uptake of tracer to the left striatum and possibly a minor reductio n to the right. IMPRESSION: This indicates the loss of the pre-synaptic dopaminergic terminals and is usually supportive of a clinical diagnosis of either idiopathic PD or PS.
== END | disposition home or self-care (01) ==
LOC: RADNMMAIN 09:57
PROVIDERS: ATTEND Psychiatry & Neurology Neurology
DX: G20 Parkinson's disease (principal)
CPT/HCPCS: 78607; A9584

== ENCOUNTER → 2017-07-21 | Outpatient (CLI) | payer BC ==
[2017-07-21 10:56] LABS: Basophils # (A) 0.1 k/uL (0-0.2); Basophils % (A) 1 %; Eosinophils # (A) 0.1 k/uL (0-0.7); Eosinophils % (A) 2 %; HGB 13.9 gm/dL (11.4-16.0); Lymphocytes # (A) 1.6 k/uL (1.0-4.8); Lymphocytes % (A) 21 %; MCH 30.4 pg (25.0-35.0); MCHC 33.2 g/dL (31.0-37.0); MCV 91.6 fL (80.0-100.0); Mean Platelet Volume 7.6; Monocytes # (A) 0.4 k/uL (0-1.0); Monocytes % (A) 5 %; Neutrophils # (A) 5.1 k/uL (1.3-7.7); Neutrophils % (A) 70 %; Platelet Count 242 k/uL (150-450); RBC 4.59 m/uL (3.80-5.40); RDW 13.2 % (11.5-15.5); WBC 7.3 k/uL (3.8-10.6)
[2017-07-21 11:26] LABS: ALT 28 U/L (9-52); AST 23 U/L (14-36); Albumin 4.5 g/dL (3.5-5.0); Alkaline Phosphatase 173 U/L (38-126); Anion Gap 11 mmol/L; Blood Urea Nitrogen 15 mg/dL (7-17); Calcium 9.7 mg/dL (8.4-10.2); Carbon Dioxide 32 mmol/L (22-30); Chloride 101 mmol/L (98-107); Glucose 105 mg/dL (74-99); Potassium 4.8 mmol/L (3.5-5.1); Sodium 144 mmol/L (137-145); Total Bilirubin 0.4 mg/dL (0.2-1.3); Total Protein 7.3 g/dL (6.3-8.2)
[2017-07-21 16:39] LABS: Folate, Serum 8.6 ng/mL
[2017-07-21 17:33] LABS: Hepatitis A Antibody IgM Non-Reactive (Non-Reactive); Hepatitis B Core IgM Non-Reactive (Non-Reactive)
[2017-07-21 17:52] LABS: HIV AB P24 Non-Reactive (Non-Reactive); HIV P24 AG Non-Reactive (Non-Reactive)
[2017-07-25 01:05] LABS: Vitamin B1 54 ug/L (38-122)
[2017-07-25 09:13] LABS: Vitamin B6 6 ug/L (5-50)
== END | disposition home or self-care (01) ==
LOC: LABWHC1 09:59
PROVIDERS: ATTEND Psychiatry & Neurology Pain Medicine
DX: G35 Multiple sclerosis (principal); Z51.81 Encounter for therapeutic drug level monitoring
CPT/HCPCS: 36415; 80053; 80074; 82306; 82607; 82746; 83036; 84207; 84425; 84439; 84443; 84481; 84591; 85025; 87390

== ENCOUNTER → 2018-03-28 | Outpatient (CLI) | payer BC ==
[2018-03-28 17:53] LABS: Albumin 4.3 g/dL (3.80-4.90); Albumin/Globulin Ratio 2.39 (1.20-2.10); Anion Gap 15.7 mmol/L (4.00-12.00); Calcium 8.5 mg/dL (8.7-10.3); Carbon Dioxide 16.3 mmol/L (21.6-31.8); Globulin 1.8 g/dL (2.1-3.7); Potassium 5.2 mmol/L (3.5-5.5); Total Bilirubin 0.3 mg/dL (0.3-1.2); Total Protein 6.1 g/dL (6.2-8.2)
== END | disposition home or self-care (01) ==
LOC: LABWHC1 09:27
PROVIDERS: ATTEND Internal Medicine Endocrinology, Diabetes & Metabolism
DX: E21.0 Primary hyperparathyroidism (principal)
CPT/HCPCS: 36415; 80053; 82306

== ENCOUNTER → 2018-05-09 | Outpatient (CLI) | payer BC | END | disposition home or self-care (01) | LOC: LABWHC1 09:22 | PROVIDERS: ATTEND Psychiatry & Neurology Pain Medicine | DX: Z51.81 Encounter for therapeutic drug level monitoring (principal) | CPT/HCPCS: 36415; 82565; 84520 ==

== ENCOUNTER 2018-07-24 14:21 | Inpatient (IN) | payer BC ==
--- NOTE | 2018-07-24 15:24 | ED ---
General Adult HPI - General Chief complaint: Shortness of Breath Stated complaint: Poss pneumonia-Dr sent Time Seen by Provider: 07/24/18 14:40 Source: patient, RN notes reviewed Mode of arrival: ambulatory Limitations: no limitations - History of Present Illness Initial comments: This is a 62-year-old female who presents emergency Department with a history of Parkinson's and MS. Patient states since July 18 she's had a cough and shortness of breath associated with it. Patient states she has had no sputum production. Patient denies any chest pain patient denies any palpitations. Patient states she went to see her primary medical care doctor and she was sent into the emergency department to be checked out for pneumonia. Patient states associated with this cough and shortness of breath has been increasing weakness and some lightheadedness. Patient denies any near syncopal episode. Patient denies any numbness or weakness. Patient denies any recent injury or fall. Patient denies abdominal pain patient denies nausea vomiting but states she does have some diarrhea as of last couple of days. - Related Data Home Medications Medication Instructions Recorded Confirmed Alendronate Sodium [Fosamax] 70 mg PO TU 12/03/13 07/24/18 Clopidogrel [Plavix] 75 mg PO DAILY 12/03/13 07/24/18 Meclizine [Antivert] 25 mg PO DAILY 12/03/13 07/24/18 Modafinil [Provigil] 200 mg PO QAM 12/03/13 07/24/18 Omeprazole [PriLOSEC] 20 mg PO AC-BRKFST 12/03/13 07/24/18 Levothyroxine Sodium [Synthroid] 125 mcg PO DAILY 11/13/15 07/24/18 Calcium Carb/Vitamin D3/Vit K1 1 tab PO DAILY 03/15/17 07/24/18 [Citracal Soft Chew] Cholecalciferol [Vitamin D3] 1,000 unit PO DAILY 03/15/17 07/24/18 Nortriptyline HCl [Pamelor] 10 mg PO HS 03/15/17 07/24/18 Carbidopa/Levodopa [Sinemet 25-100 1 tab PO TID 07/24/18 07/24/18 mg] Diltiazem HCl [Cartia Xt] 180 mg PO DAILY 07/24/18 07/24/18 HYDROcodone/APAP 7.5-325MG [[place] 1 tab PO Q6H 07/24/18 07/24/18 7.5-325] Olmesartan [Benicar] 20 mg PO DAILY 07/24/18 07/24/18 Teriflunomide [Aubagio] 14 mg PO DAILY@1900 07/24/18 07/24/18 Vitamin B Complex 1 cap PO DAILY 07/24/18 07/24/18 Previous Rx's Medication Instructions Recorded Atorvastatin [Lipitor] 20 mg PO HS tab 03/17/17 Allergies Allergy/AdvReac Type Severity Reaction Status Date / Time doxycycline AdvReac upset Verified 07/24/18 16:32 stomach doxycycline hyclate AdvReac Vomiting Verified 07/24/18 16:32 [From Vibra-Tabs] isosorbide [From Imdur] AdvReac MIGRAINE Verified 07/24/18 16:32 HEADACHE Sulfa (Sulfonamide AdvReac Vomiting Verified 07/24/18 16:32 Antibiotics) Review of Systems ROS Statement: Those systems with pertinent positive or pertinent negative responses have been documented in the HPI. ROS Other: All systems not noted in ROS Statement are negative. Past Medical History Past Medical History: CVA/TIA, GERD/Reflux, Hypertension, Osteoarthritis (OA), Thyroid Disorder Additional Past Medical History / Comment(s): MS, migranes, 6 TIA , hiatal hernia, osteoporosis History of Any Multi-Drug Resistant Organisms: None Reported Past Surgical History: Cholecystectomy, Hysterectomy, Orthopedic Surgery Additional Past Surgical History / Comment(s): LEFT KNEE SX; RIGHT ELBOW/SHOULDER SX; eye surgery bilat, bilat carpel tunnel PARATHYROID SURGERY 2016 Past Anesthesia/Blood Transfusion Reactions: Postoperative Nausea & Vomiting (PONV) Past Psychological History: No Psychological Hx Reported Smoking Status: Never smoker Past Alcohol Use History: None Reported Past Drug Use History: None Reported - Past Family History Mother Family Medical History: Cancer, Diabetes Mellitus, Deep Vein Thrombosis (DVT) Additional Family Medical History / Comment(s): KIDNEY Father Family Medical History: Cancer Additional Family Medical History / Comment(s): PROSTATE General Exam - General Exam Comments Initial Comments: GENERAL: Patient is well-developed and well-nourished. Patient is nontoxic and well- hydrated and is in mild distress. ENT: Neck is soft and supple. No significant lymphadenopathy is noted. Oropharynx is clear. Moist mucous membranes. EYES: The sclera were anicteric and conjunctiva were pink and moist. Extraocular movements were intact and pupils were equal round and reactive to light. Eyelid s were unremarkable. PULMONARY: Unlabored respirations. Good breath sounds bilaterally. No audible rales rhonchi or wheezing was noted. CARDIOVASCULAR: There is a regular rate and rhythm without any murmurs gallops or rubs. ABDOMEN: Soft and nontender with normal bowel sounds. No palpable organomegaly was noted. There is no palpable pulsatile mass. SKIN: Skin is clear with no lesions or rashes and otherwise unremarkable. NEUROLOGIC: Patient is alert and oriented x3. Cranial nerves II through XII are grossly intact. Motor and sensory are also intact. Normal speech, volume and content. Symmetrical smile. MUSCULOSKELETAL: Normal extremities with adequate strength and full range of motion. LYMPHATICS: No significant lymphadenopathy is noted PSYCHIATRIC: Normal psychiatric evaluation. Limitations: no limitations Course Vital Signs 07/24/18 14:40 Temperature 98.2 F Pulse Rate 84 Respiratory 20 Rate Blood Pressure 136/83 O2 Sat by Pulse 97 Oximetry Medical Decision Making - Medical Decision Making EKG shows sinus rhythm 82 bpm VA interval 206 QRS is 86 QT interval 360 QTC is 420 per patient's EKG shows slight ST segment depression in leads II, III, and F aVF. Old EKG shows similar ST segment depression in the same leads. Patient chest x-ray shows no acute abnormality. I spoke with Dr. Dionicio Greenberg stated that the patient was cleaning chest pressure earlier see one the patient admitted. I admitted the patient I repeated cardiac enzymes - Lab Data Result diagrams: 07/24/18 14:59 07/24/18 14:59 Lab Results 07/24/18 07/24/18 07/24/18 Range/Units 14:59 14:59 14:59 WBC 3.5 L (3.8-10.6) k/uL RBC 4.66 (3.80-5.40) m/uL Hgb 13.6 (11.4-16.0) gm/dL Hct 43.0 (34.0-46.0) % MCV 92.2 (80.0-100.0) fL MCH 29.2 (25.0-35.0) pg MCHC 31.7 (31.0-37.0) g/dL RDW 13.8 (11.5-15.5) % Plt Count 158 (150-450) k/uL Neutrophils % 56 % Lymphocytes % 32 % Monocytes % 7 % Eosinophils % 2 % Basophils % 1 % Neutrophils # 1.9 (1.3-7.7) k/uL Lymphocytes # 1.1 (1.0-4.8) k/uL Monocytes # 0.2 (0-1.0) k/uL Eosinophils # 0.1 (0-0.7) k/uL Basophils # 0.0 (0-0.2) k/uL PT (9.0-12.0) sec INR (<1.2) APTT (22.0-30.0) sec Sodium 142 (137-145) mmol/L Potassium 3.7 (3.5-5.1) mmol/L Chloride 105 (98-107) mmol/L Carbon Dioxide 28 (22-30) mmol/L Anion Gap 9 mmol/L BUN 14 (7-17) mg/dL Creatinine 0.63 (0.52-1.04) mg/dL Est GFR (CKD-EPI)AfAm >90 (>60 ml/min/1.73 sqM) Est GFR (CKD-EPI)NonAf >90 (>60 ml/min/1.73 sqM) Glucose 104 H (74-99) mg/dL Plasma Lactic Acid [place] 1.3 (0.7-2.0) mmol/L Calcium 9.4 (8.4-10.2) mg/dL Total Bilirubin 0.6 (0.2-1.3) mg/dL AST 55 H (14-36) U/L ALT 27 (9-52) U/L Alkaline Phosphatase 145 H (38-126) U/L Troponin I (0.000-0.034) ng/mL Total Protein 7.1 (6.3-8.2) g/dL Albumin 4.0 (3.5-5.0) g/dL Urine Color Urine Appearance (Clear) Urine pH (5.0-8.0) Ur Specific [place] (1.001-1.035) Urine Protein (Negative) Urine Glucose (UA) (Negative) Urine Ketones (Negative) Urine Blood (Negative) Urine Nitrite (Negative) Urine Bilirubin (Negative) Urine Urobilinogen (<2.0) mg/dL Ur Leukocyte Esterase (Negative) 07/24/18 07/24/18 07/24/18 Range/Units 14:59 14:59 16:00 WBC (3.8-10.6) k/uL RBC (3.80-5.40) m/uL Hgb (11.4-16.0) gm/dL Hct (34.0-46.0) % MCV (80.0-100.0) fL MCH (25.0-35.0) pg MCHC (31.0-37.0) g/dL RDW (11.5-15.5) % Plt Count (150-450) k/uL Neutrophils % % Lymphocytes % % Monocytes % % Eosinophils % % Basophils % % Neutrophils # (1.3-7.7) k/uL Lymphocytes # (1.0-4.8) k/uL Monocytes # (0-1.0) k/uL Eosinophils # (0-0.7) k/uL Basophils # (0-0.2) k/uL PT 10.2 (9.0-12.0) sec INR 0.9 (<1.2) APTT 20.3 L (22.0-30.0) sec Sodium (137-145) mmol/L Potassium (3.5-5.1) mmol/L Chloride (98-107) mmol/L Carbon Dioxide (22-30) mmol/L Anion Gap mmol/L BUN (7-17) mg/dL Creatinine (0.52-1.04) mg/dL Est GFR (CKD-EPI)AfAm (>60 ml/min/1.73 sqM) Est GFR (CKD-EPI)NonAf (>60 ml/min/1.73 sqM) Glucose (74-99) mg/dL Plasma Lactic Acid [place] (0.7-2.0) mmol/L Calcium (8.4-10.2) mg/dL Total Bilirubin (0.2-1.3) mg/dL AST (14-36) U/L ALT (9-52) U/L Alkaline Phosphatase (38-126) U/L Troponin I <0.012 (0.000-0.034) ng/mL Total Protein (6.3-8.2) g/dL Albumin (3.5-5.0) g/dL Urine Color Yellow Urine Appearance Clear (Clear) Urine pH 5.5 (5.0-8.0) Ur Specific [place] 1.008 (1.001-1.035) Urine Protein Negative (Negative) Urine Glucose (UA) Negative (Negative) Urine Ketones Negative (Negative) Urine Blood Negative (Negative) Urine Nitrite Negative (Negative) Urine Bilirubin Negative (Negative) Urine Urobilinogen <2.0 (<2.0) mg/dL Ur Leukocyte Esterase Negative (Negative) Disposition Clinical Impression: Chest pressure Disposition: ADMITTED IP TO THIS HOSP Referrals: All Greenberg MD [Primary Care Provider] - 1-2 days Time of Disposition: 16:48
[2018-07-24 15:45] LABS: Basophils % (A) 1 %; Eosinophils # (A) 0.1 k/uL (0-0.7); Eosinophils % (A) 2 %; HGB 13.6 gm/dL (11.4-16.0); Lymphocytes # (A) 1.1 k/uL (1.0-4.8); Lymphocytes % (A) 32 %; MCH 29.2 pg (25.0-35.0); MCHC 31.7 g/dL (31.0-37.0); MCV 92.2 fL (80.0-100.0); Monocytes # (A) 0.2 k/uL (0-1.0); Monocytes % (A) 7 %; Neutrophils # (A) 1.9 k/uL (1.3-7.7); Neutrophils % (A) 56 %; Platelet Count 158 k/uL (150-450); RBC 4.66 m/uL (3.80-5.40); RDW 13.8 % (11.5-15.5); WBC 3.5 k/uL (3.8-10.6)
[2018-07-24 15:58] LABS: ALT 27 U/L (9-52); AST 55 U/L (14-36); Alkaline Phosphatase 145 U/L (38-126); Anion Gap 9 mmol/L; Blood Urea Nitrogen 14 mg/dL (7-17); Calcium 9.4 mg/dL (8.4-10.2); Carbon Dioxide 28 mmol/L (22-30); Chloride 105 mmol/L (98-107); Glucose 104 mg/dL (74-99); Potassium 3.7 mmol/L (3.5-5.1); Sodium 142 mmol/L (137-145); Total Bilirubin 0.6 mg/dL (0.2-1.3); Total Protein 7.1 g/dL (6.3-8.2)
--- NOTE | 2018-07-24 16:03 | XR ---
EXAMINATION TYPE: XR chest 2V DATE OF EXAM: 07/24/2018 COMPARISON: Chest x-ray March 15, 2017 HISTORY: Fever. TECHNIQUE: Frontal and lateral views of the chest are obtained. FINDINGS: There is chronic parenchymal change without suspicious focal air space opacity, pleural ef fusion, or pneumothorax seen. The cardiac silhouette size is stable and enlarged. The osseous stru ctures are intact. Cholecystectomy clips are noted on lateral view. IMPRESSION: Cardiomegaly without new acute pulmonary process. No significant change from prior.
[2018-07-24 16:10] LABS: INR 0.9 (<1.2)
[2018-07-24 16:11] LABS: Partial Thromboplastin Time 20.3 sec (22.0-30.0); Prothrombin Time 10.2 sec (9.0-12.0)
[2018-07-24 16:30] LABS: Appearance,Urine Clear (Clear); Bilirubin,Urine Negative (Negative); Blood,Urine Negative (Negative); Color,Urine Yellow; Glucose,Urine (UA) Negative (Negative); Ketones,Urine Negative (Negative); Leukocyte Esterase,Urine Negative (Negative); Nitrite,Urine Negative (Negative); PH, Urine 5.5 (5.0-8.0); Protein,Urine Negative (Negative); Specific Gravity,Urine 1.008 (1.001-1.035); Urobilinogen,Urine <2.0 mg/dL (<2.0)
[2018-07-24 17:49] VITALS: BMI 35.5
[2018-07-24] MEDS ORDERED: HYDROcodone/APAP 7.5-325MG 1 EACH TAB PO PRN (18:15)
[2018-07-24] MEDS ORDERED: NON-FORMULARY DRUG (Alendronate Sodium [Fosamax] 70 MG) PO SCH (18:15)
[2018-07-24] MEDS: SODIUM CHLORIDE 0.9% 1,000 ML IV SCH (18:43)
[2018-07-24] MEDS: Teriflunomide [Aubagio] 14 MG PO SCH (19:43)
[2018-07-24] MEDS: NORTRIPTYLINE 10 MG CAP PO SCH (19:53)
[2018-07-24] MEDS: ATORVASTATIN 20 MG TAB PO SCH (19:54)
[2018-07-24] MEDS: CARBIDOPA-LEVODOPA 25-100 MG 1 EACH TAB PO SCH (19:54)
[2018-07-24] MEDS: OSELTAMIVIR 75 MG CAP PO SCH (19:54)
[2018-07-25 03:44] LABS: Cholesterol 99 mg/dL (<200); HDL Cholesterol 36 mg/dL (40-60); LDL Cholesterol,Calculated 53 mg/dL (0-99); Triglycerides 51 mg/dL (<150)
[2018-07-25] MEDS: LEVOTHYROXINE 125 MCG TAB PO SCH (05:56)
--- NOTE | 2018-07-25 07:14 | P.CRDCN ---
History of Present Illness Consult date: 07/25/18 Chief complaint: Shortness of breath History of present illness: This is a pleasant 62-year-old female patient with a past medical history significant for history of TIA, multiple sclerosis, Parkinson disease, as well as multiple comorbid conditions, was referred to the hospital by her primary care physician. The patient went to see Dr. Greenberg yesterday her primary care physician, when she was experiencing symptoms of shortness of breath associated with chest discomfort. An EKG in his office was performed and she was sent to the hospital based on the EKG. The patient stated that she was experiencing more short of breath for the last few days. Yesterday also she was having chest pressure. Beside that she did experience some symptoms of shivering. She is not aware of any prior history of coronary artery disease or congestive heart failure or any cardiac arrhythmia. She stated that she does have valvular heart disease and she follows with Dr. Cantu in the office on regular basis. The EKG showed sinus rhythm was nonspecific changes inferiorly. The chest x- ray did not show any acute abnormalities. The cardiac enzymes were checked and came in to be unremarkable. There is no PND was obtained. More importantly, she was positive for influenza A and currently she is on isolation. Past Medical History Past Medical History: CVA/TIA, GERD/Reflux, Hypertension, Osteoarthritis (OA), Thyroid Disorder Additional Past Medical History / Comment(s): MS, migranes, 6 TIA , hiatal hernia, osteoporosis, hypothyroid, parkinsons History of Any Multi-Drug Resistant Organisms: None Reported Past Surgical History: Cholecystectomy, Hysterectomy, Orthopedic Surgery Additional Past Surgical History / Comment(s): LEFT KNEE SX; RIGHT ELBOW/ SHOULDER SX; eye surgery bilat, bilat carpel tunnel PARATHYROID SURGERY 2016 Past Anesthesia/Blood Transfusion Reactions: Postoperative Nausea & Vomiting ( PONV) Past Psychological History: Anxiety Smoking Status: Never smoker Past Alcohol Use History: None Reported Past Drug Use History: None Reported - Past Family History Mother Family Medical History: Cancer, Diabetes Mellitus, Deep Vein Thrombosis (DVT) Additional Family Medical History / Comment(s): KIDNEY Father Family Medical History: Cancer Additional Family Medical History / Comment(s): PROSTATE Medications and Allergies Home Medications Medication Instructions Recorded Confirmed Type Alendronate Sodium [Fosamax] 70 mg PO TU 12/03/13 07/24/18 History Clopidogrel [Plavix] 75 mg PO DAILY 12/03/13 07/24/18 History Meclizine [Antivert] 25 mg PO DAILY 12/03/13 07/24/18 History Modafinil [Provigil] 200 mg PO QAM 12/03/13 07/24/18 History Omeprazole [PriLOSEC] 20 mg PO AC-BRKFST 12/03/13 07/24/18 History Levothyroxine Sodium [Synthroid] 125 mcg PO DAILY 11/13/15 07/24/18 History Calcium Carb/Vitamin D3/Vit K1 1 tab PO DAILY 03/15/17 07/24/18 History [Citracal Soft Chew] Cholecalciferol [Vitamin D3] 1,000 unit PO DAILY 03/15/17 07/24/18 History Nortriptyline HCl [Pamelor] 10 mg PO HS 03/15/17 07/24/18 History Atorvastatin [Lipitor] 20 mg PO HS tab 03/17/17 07/24/18 Rx Carbidopa/Levodopa [Sinemet 25-100 1 tab PO TID 07/24/18 07/24/18 History mg] Diltiazem HCl [Cartia Xt] 180 mg PO DAILY 07/24/18 07/24/18 History HYDROcodone/APAP 7.5-325MG [[place] 1 tab PO Q6H 07/24/18 07/24/18 History 7.5-325] Olmesartan [Benicar] 20 mg PO DAILY 07/24/18 07/24/18 History Teriflunomide [Aubagio] 14 mg PO DAILY@1900 07/24/18 07/24/18 History Vitamin B Complex 1 cap PO DAILY 07/24/18 07/24/18 History Allergies Allergy/AdvReac Type Severity Reaction Status Date / Time doxycycline AdvReac upset Verified 07/24/18 16:32 stomach doxycycline hyclate AdvReac Vomiting Verified 07/24/18 16:32 [From Vibra-Tabs] isosorbide [From Imdur] AdvReac MIGRAINE Verified 07/24/18 16:32 HEADACHE Sulfa (Sulfonamide AdvReac Vomiting Verified 07/24/18 16:32 Antibiotics) Physical Exam Vitals: Vital Signs Temp Pulse Pulse Resp BP BP Pulse Ox 07/25/18 03:23 16 07/25/18 03:08 97.6 F 76 16 91/64 95 07/24/18 23:39 16 07/24/18 23:20 97.7 F 82 16 109/67 95 07/24/18 20:00 16 07/24/18 19:36 98.6 F 87 16 114/79 98 07/24/18 17:53 92 18 07/24/18 17:20 98.2 F 92 18 148/79 96 07/24/18 17:00 83 18 114/81 95 07/24/18 16:30 79 19 110/87 97 07/24/18 15:30 82 18 142/94 97 07/24/18 14:40 98.2 F 84 20 136/83 97 Intake and Output 07/24/18 07/25/18 07/25/18 22:59 06:59 14:59 Other: Voiding Method Toilet Toilet # Voids 1 - Constitutional General appearance: no acute distress - Respiratory Respiratory: bilateral: wheezing - Cardiovascular Rhythm: regular Heart sounds: normal: S1, S2 Results 07/24/18 14:59 07/24/18 14:59 Cardiac Enzymes 07/24/18 07/24/18 07/24/18 Range/Units 14:59 14:59 21:14 AST 55 H (14-36) U/L Troponin I <0.012 <0.012 (0.000-0.034) ng/mL 07/25/18 Range/Units 03:03 AST (14-36) U/L Troponin I <0.012 (0.000-0.034) ng/mL Coagulation 07/24/18 Range/Units 14:59 PT 10.2 (9.0-12.0) sec APTT 20.3 L (22.0-30.0) sec Lipids 07/25/18 Range/Units 03:03 Triglycerides 51 (<150) mg/dL Cholesterol 99 (<200) mg/dL HDL Cholesterol 36 L (40-60) mg/dL CBC 07/24/18 Range/Units 14:59 WBC 3.5 L (3.8-10.6) k/uL RBC 4.66 (3.80-5.40) m/uL Hgb 13.6 (11.4-16.0) gm/dL Hct 43.0 (34.0-46.0) % Plt Count 158 (150-450) k/uL Comprehensive Metabolic Panel 07/24/18 Range/Units 14:59 Sodium 142 (137-145) mmol/L Potassium 3.7 (3.5-5.1) mmol/L Chloride 105 (98-107) mmol/L Carbon Dioxide 28 (22-30) mmol/L BUN 14 (7-17) mg/dL Creatinine 0.63 (0.52-1.04) mg/dL Glucose 104 H (74-99) mg/dL Calcium 9.4 (8.4-10.2) mg/dL AST 55 H (14-36) U/L ALT 27 (9-52) U/L Alkaline Phosphatase 145 H (38-126) U/L Total Protein 7.1 (6.3-8.2) g/dL Albumin 4.0 (3.5-5.0) g/dL Current Medications Generic Name Dose Route Start Last Admin Trade Name Freq PRN Reason Stop Dose Admin Hydrocodone Bitart/Acetaminophen 1 each 07/24/18 18:15 07/24/18 19:53 [place] 7.5-325 PO 1 each Q6H PRN Administration MODERATE PAIN Aspirin 325 mg 07/25/18 09:00 Aspirin PO DAILY [facility] Atorvastatin Calcium 20 mg 07/24/18 21:00 07/24/18 19:54 Lipitor PO 20 mg HS RONDA Administration Carbidopa/Levodopa 1 each 07/24/18 22:00 07/24/18 19:54 Sinemet 25-100 PO 1 each TID RONDA Administration Cholecalciferol 1,000 unit 07/25/18 09:00 Vitamin D3 PO DAILY [facility] Clopidogrel Bisulfate 75 mg 07/25/18 09:00 Plavix PO DAILY [facility] Diltiazem HCl 180 mg 07/25/18 09:00 Cardizem Cd PO DAILY [facility] Sodium Chloride 1,000 mls @ 70 mls/hr 07/24/18 18:30 07/24/18 18:43 Saline 0.9% IV 70 mls/hr .[id number] RONDA Administration Levothyroxine Sodium 125 mcg 07/25/18 06:30 07/25/18 05:56 Synthroid PO 125 mcg DAILY@0630 RONDA Administration Losartan Potassium 100 mg 07/25/18 09:00 Cozaar PO DAILY RONDA Meclizine HCl 25 mg 07/25/18 09:00 Antivert PO DAILY RONDA Modafinil 200 mg 07/25/18 09:00 Provigil PO QAM RONDA Teriflunomide [ 14 mg 07/24/18 19:00 07/24/18 19:43 Aubagio] 14 Mg PO Not Given DAILY@1900 RONDA Nortriptyline HCl 10 mg 07/24/18 21:00 07/24/18 19:53 Pamelor PO 10 mg HS RONDA Administration Oseltamivir Phosphate 75 mg 07/24/18 21:00 07/24/18 19:54 Tamiflu PO 07/29/18 09:01 75 mg Q12HR RONDA Administration Pantoprazole Sodium 40 mg 07/25/18 07:30 Protonix PO AC-BRKFST RONDA Intake and Output 07/24/18 07/25/18 07/25/18 22:59 06:59 14:59 Other: Voiding Method Toilet Toilet # Voids 1 07/24/18 14:59 07/24/18 14:59 Assessment and Plan Assessment: Assessment #1 influenza A #2 shortness of breath probably secondary to the above #3 chest pressure #4 multiple comorbid conditions including Parkinson disease as well as multiple sclerosis #5 history of TIA Plan #1 acute coronary event was ruled out. The enzymes are unremarkable. The EKG did not show any acute or ischemic changes #2 the shortness of breath is likely secondary to the influenza A. The patient is getting treated for that #3 I will obtain an echocardiogram was Doppler at this point to evaluate the LV function and the intracardiac valves #4 obtain a BNP chest to assess for any component of congestive heart failure. Clinically the patient doesn't seems to be in CHF #5 follow-up with the patient. Thank you for allowing us participate in her care
[2018-07-25] MEDS: CARBIDOPA-LEVODOPA 25-100 MG 1 EACH TAB PO SCH ×3 (08:06→22:38)
[2018-07-25] MEDS: DILTIAZEM CD 180 MG CAP.ER.24H PO SCH (08:06)
[2018-07-25] MEDS: MECLIZINE 25 MG TAB PO SCH (08:06)
[2018-07-25] MEDS: PANTOPRAZOLE 40 MG TABLET PO SCH (08:06)
[2018-07-25] MEDS: OSELTAMIVIR 75 MG CAP PO SCH ×2 (08:06→22:38)
[2018-07-25] MEDS: ASPIRIN 325 MG TAB PO SCH (08:06)
[2018-07-25] MEDS: CHOLECALCIFEROL 1,000 UNIT TAB PO SCH (08:06)
[2018-07-25] MEDS: CLOPIDOGREL 75 MG TAB PO SCH (08:06)
[2018-07-25] MEDS: LOSARTAN 50 MG TAB PO SCH (08:08)
[2018-07-25] MEDS ORDERED: CALCIUM CARB PO SCH (09:00)
[2018-07-25] MEDS ORDERED: NON-FORMULARY DRUG (Vitamin B Complex [Vitamin B Complex] 1 CAP) PO SCH (09:00)
[2018-07-25] MEDS ORDERED: VITAMIN D3 PO SCH (09:00)
[2018-07-25] MEDS ORDERED: VIT K1 PO SCH (09:00)
--- NOTE | 2018-07-25 10:47 | P.HPIM ---
History of Present Illness 62-year-old female was admitted to the emergency room. Presented to family physician with complaints of cough and chest pain. Fever and chills shortness of breath. She was found to be influenza a positive. Troponins of been negative 3. Patient has a history of Parkinson's anonymous history of CVA/TIA Review of Systems Constitutional: Reports chills, Reports fatigue, Reports fever Cardiovascular: Reports chest pain Respiratory: Reports congestion, Reports cough Neurological: Reports tremors Past Medical History Past Medical History: CVA/TIA, GERD/Reflux, Hypertension, Osteoarthritis (OA), Thyroid Disorder Additional Past Medical History / Comment(s): MS, migranes, 6 TIA , hiatal hernia, osteoporosis, hypothyroid, parkinsons History of Any Multi-Drug Resistant Organisms: None Reported Past Surgical History: Cholecystectomy, Hysterectomy, Orthopedic Surgery Additional Past Surgical History / Comment(s): LEFT KNEE SX; RIGHT ELBOW/ SHOULDER SX; eye surgery bilat, bilat carpel tunnel PARATHYROID SURGERY 2016 Past Anesthesia/Blood Transfusion Reactions: Postoperative Nausea & Vomiting ( PONV) Past Psychological History: Anxiety Smoking Status: Never smoker Past Alcohol Use History: None Reported Past Drug Use History: None Reported - Past Family History Mother Family Medical History: Cancer, Diabetes Mellitus, Deep Vein Thrombosis (DVT) Additional Family Medical History / Comment(s): KIDNEY Father Family Medical History: Cancer Additional Family Medical History / Comment(s): PROSTATE Medications and Allergies Home Medications Medication Instructions Recorded Confirmed Type Alendronate Sodium [Fosamax] 70 mg PO TU 12/03/13 07/24/18 History Clopidogrel [Plavix] 75 mg PO DAILY 12/03/13 07/24/18 History Meclizine [Antivert] 25 mg PO DAILY 12/03/13 07/24/18 History Modafinil [Provigil] 200 mg PO QAM 12/03/13 07/24/18 History Omeprazole [PriLOSEC] 20 mg PO AC-BRKFST 12/03/13 07/24/18 History Levothyroxine Sodium [Synthroid] 125 mcg PO DAILY 11/13/15 07/24/18 History Calcium Carb/Vitamin D3/Vit K1 1 tab PO DAILY 03/15/17 07/24/18 History [Citracal Soft Chew] Cholecalciferol [Vitamin D3] 1,000 unit PO DAILY 03/15/17 07/24/18 History Nortriptyline HCl [Pamelor] 10 mg PO HS 03/15/17 07/24/18 History Carbidopa/Levodopa [Sinemet 25-100 1 tab PO TID 07/24/18 07/24/18 History mg] Diltiazem HCl [Cartia Xt] 180 mg PO DAILY 07/24/18 07/24/18 History HYDROcodone/APAP 7.5-325MG [[place] 1 tab PO Q6H 07/24/18 07/24/18 History 7.5-325] Olmesartan [Benicar] 20 mg PO DAILY 07/24/18 07/24/18 History Teriflunomide [Aubagio] 14 mg PO DAILY@1900 07/24/18 07/24/18 History Vitamin B Complex 1 cap PO DAILY 07/24/18 07/24/18 History Allergies Allergy/AdvReac Type Severity Reaction Status Date / Time doxycycline AdvReac upset Verified 07/24/18 16:32 stomach doxycycline hyclate AdvReac Vomiting Verified 07/24/18 16:32 [From Vibra-Tabs] isosorbide [From Imdur] AdvReac MIGRAINE Verified 07/24/18 16:32 HEADACHE Sulfa (Sulfonamide AdvReac Vomiting Verified 07/24/18 16:32 Antibiotics) Physical Exam Vitals: Vital Signs Temp Pulse Pulse Resp BP BP Pulse Ox 07/25/18 07:42 97.4 F L 78 18 111/71 96 07/25/18 03:23 16 07/25/18 03:08 97.6 F 76 16 91/64 95 07/24/18 23:39 16 07/24/18 23:20 97.7 F 82 16 109/67 95 07/24/18 20:00 16 07/24/18 19:36 98.6 F 87 16 114/79 98 07/24/18 17:53 92 18 07/24/18 17:20 98.2 F 92 18 148/79 96 07/24/18 17:00 83 18 114/81 95 07/24/18 16:30 79 19 110/87 97 07/24/18 15:30 82 18 142/94 97 07/24/18 14:40 98.2 F 84 20 136/83 97 Intake and Output 07/24/18 07/25/18 07/25/18 22:59 06:59 14:59 Intake Total 240 Balance 240 Intake: Oral 240 Other: Voiding Method Toilet Toilet Toilet # Voids 1 1 - Constitutional General appearance: mild distress - EENT Eyes: PERRLA ENT: normal oropharynx Ears: bilateral: normal - Neck Neck: normal ROM - Respiratory Respiratory: left: rales - Cardiovascular Rhythm: regular - Gastrointestinal General gastrointestinal: soft - Integumentary Integumentary: normal - Neurologic Neurologic: CNII-XII intact - Musculoskeletal Musculoskeletal: generalized weakness - Psychiatric Psychiatric: A&O x's 3, appropriate affect, intact judgment & insight Results CBC & Chem 7: 07/24/18 14:59 07/24/18 14:59 Labs: Abnormal Lab Results - Last 24 Hours (Table) 07/24/18 07/24/18 07/24/18 Range/Units 14:59 14:59 14:59 WBC 3.5 L (3.8-10.6) k/uL APTT 20.3 L (22.0-30.0) sec Glucose 104 H (74-99) mg/dL AST 55 H (14-36) U/L Alkaline Phosphatase 145 H (38-126) U/L HDL Cholesterol (40-60) mg/dL Influenza Type A RNA (Not Detectd) 07/24/18 07/25/18 Range/Units 17:34 03:03 WBC (3.8-10.6) k/uL APTT (22.0-30.0) sec Glucose (74-99) mg/dL AST (14-36) U/L Alkaline Phosphatase (38-126) U/L HDL Cholesterol 36 L (40-60) mg/dL Influenza Type A RNA Detected H (Not Detectd) Microbiology - Last 24 Hours (Table) 07/24/18 16:00 Urine Culture - Preliminary Urine,Voided Chest x-ray: report reviewed Thrombosis Risk Factor Assmnt - Choose All That Apply Any of the Below Risk Factors Present?: Yes Each Factor Represents 1 point: Oral contraceptives or hormone replacement therapy Other Risk Factors: Yes Each Risk Factor Represents 2 Points: Age 61-74 years Thrombosis Risk Factor Assessment Total Risk Factor Score: 3 Thrombosis Risk Factor Assessment Level: Moderate Risk Assessment and Plan Plan: Assessment Chest pain atypical troponins negative 3 Influenza A History of CVA/TIA Hypertension Osteoarthritis Hypothyroidism Parkinson's Multiple sclerosis Plan Cardiology consultation echo ordered Patient on Tamiflu in isolation
[2018-07-25] MEDS: MODAFINIL 200 MG TAB PO SCH (17:10)
[2018-07-25] MEDS: SODIUM CHLORIDE 0.9% 1,000 ML IV SCH ×2 (19:18→22:39)
[2018-07-25] MEDS ORDERED: LEVOFLOXACIN 500 MG TAB PO SCH (21:00)
[2018-07-25] MEDS: Teriflunomide [Aubagio] 14 MG PO SCH (21:24)
[2018-07-25] MEDS: NORTRIPTYLINE 10 MG CAP PO SCH (22:37)
[2018-07-25] MEDS: ATORVASTATIN 20 MG TAB PO SCH (22:37)
[2018-07-26 06:01] VITALS: RESP 16
[2018-07-26] MEDS: LEVOTHYROXINE 125 MCG TAB PO SCH (06:23)
[2018-07-26] MEDS: PANTOPRAZOLE 40 MG TABLET PO SCH (10:17)
[2018-07-26] MEDS: CARBIDOPA-LEVODOPA 25-100 MG 1 EACH TAB PO SCH ×2 (10:18→17:10)
[2018-07-26] MEDS: CLOPIDOGREL 75 MG TAB PO SCH (10:18)
[2018-07-26] MEDS: CHOLECALCIFEROL 1,000 UNIT TAB PO SCH (10:18)
[2018-07-26] MEDS: ASPIRIN 325 MG TAB PO SCH (10:18)
[2018-07-26] MEDS: DILTIAZEM CD 180 MG CAP.ER.24H PO SCH (10:19)
[2018-07-26] MEDS: LOSARTAN 50 MG TAB PO SCH (10:19)
[2018-07-26] MEDS: MODAFINIL 200 MG TAB PO SCH (10:19)
[2018-07-26] MEDS: MECLIZINE 25 MG TAB PO SCH (10:19)
[2018-07-26] MEDS: OSELTAMIVIR 75 MG CAP PO SCH (10:20)
--- NOTE | 2018-07-26 11:23 | P.PN ---
Subjective Patient has improved greatly. Awaiting report from cardiology on echo and disposition can be discharged after clearance from cardiology Objective - Vital Signs Vital signs: Vital Signs Temp 97.8 F 07/26/18 04:44 Pulse 80 07/26/18 04:44 Resp 16 07/26/18 04:44 BP 126/82 07/26/18 04:44 Pulse Ox 97 07/26/18 04:44 Intake & Output 07/25/18 07/26/18 07/26/18 18:59 06:59 18:59 Intake Total 480 560 Balance 480 560 Weight 71.11 kg Intake: Intake, IV Titration 560 Amount Sodium Chloride 0.9% 1, 560 000 ml @ 70 mls/hr IV . [id number] RONDA Rx#:[id number] Oral 480 Other: Voiding Method Toilet Toilet # Voids 1 1 - Constitutional General appearance: Present: mild distress - EENT Ears: - Respiratory Respiratory: - Cardiovascular Rhythm: regular - Gastrointestinal General gastrointestinal: Present: soft - Integumentary Integumentary: Present: normal - Musculoskeletal Musculoskeletal: Present: generalized weakness - Psychiatric Psychiatric: Present: A&O x's 3, appropriate affect, intact judgment & insight - Labs CBC & Chem 7: 07/24/18 14:59 07/24/18 14:59 Labs: Microbiology - Last 24 Hours (Table) 07/24/18 16:00 Urine Culture - Preliminary Urine,Voided Gram Neg Bacilli 07/24/18 14:59 Blood Culture - Preliminary Blood No Growth after 24 hours Assessment and Plan Plan: Assessment Atypical chest pains troponins negative Influenza A Urinary tract infection History of CVA/TIA Hypertension Osteoarthritis Hypothyroidism Parkinson's multiple sclerosis Plan Discharge home after cardiac clearance We'll continue Tamiflu and Levaquin
[2018-07-26 12:29] VITALS: BP 139/89; PULSE 88; TEMP 97.9
[2018-07-26] MEDS: SODIUM CHLORIDE 0.9% 1,000 ML IV SCH (15:55)
--- NOTE | 2018-07-26 16:06 | P.DS ---
Providers Date of admission: 07/24/18 16:49 Expected date of discharge: 07/26/18 Attending physician: All Greenberg Consults: 07/24/18 16:49 Consult Physician Urgent Consulting Provider: [facility] Consult Reason/Comments: Chest pain Do you want consulting provider notified?: Yes Primary care physician: All Greenberg Hospital Course: 62-year-old female presented to her family physician with complaints of cough and chest pain. Patient was sent to the emergency room for evaluation. Patient was then admitted and found to have influenza A. Patient was evaluated by cardiology and cleared for discharge home Assessment Atypical chest pain troponins negative Influenza A Urinary tract infection History of CVA/TIA Hypertension Osteoarthritis Hypothyroidism Parkinson's Multiple sclerosis Plan Follow-up with family physician and pain management Dr. Monahan Patient is to continue Tamiflu for 3 days and also Levaquin for 7 days Plan - Discharge Summary Discharge Rx Participant: No New Discharge Prescriptions: New Levofloxacin [Levaquin] 500 mg PO Q24H 7 Days #7 tab Oseltamivir [Tamiflu] 75 mg PO Q12HR 3 Days #6 cap Continue Omeprazole [PriLOSEC] 20 mg PO AC-BRKFST Modafinil [Provigil] 200 mg PO QAM Meclizine [Antivert] 25 mg PO DAILY Clopidogrel [Plavix] 75 mg PO DAILY Alendronate Sodium [Fosamax] 70 mg PO TU Levothyroxine Sodium [Synthroid] 125 mcg PO DAILY Cholecalciferol [Vitamin D3] 1,000 unit PO DAILY Nortriptyline HCl [Pamelor] 10 mg PO HS Calcium Carb/Vitamin D3/Vit K1 [Citracal Soft Chew] 1 tab PO DAILY Atorvastatin [Lipitor] 20 mg PO HS tab HYDROcodone/APAP 7.5-325MG [[place] 7.5-325] 1 tab PO Q6H Carbidopa/Levodopa [Sinemet 25-100 mg] 1 tab PO TID Vitamin B Complex 1 cap PO DAILY Olmesartan [Benicar] 20 mg PO DAILY Diltiazem HCl [Cartia Xt] 180 mg PO DAILY Teriflunomide [Aubagio] 14 mg PO DAILY@1900 Discharge Medication List Alendronate Sodium [Fosamax] 70 mg PO TU 12/03/13 [History] Clopidogrel [Plavix] 75 mg PO DAILY 12/03/13 [History] Meclizine [Antivert] 25 mg PO DAILY 12/03/13 [History] Modafinil [Provigil] 200 mg PO QAM 12/03/13 [History] Omeprazole [PriLOSEC] 20 mg PO AC-BRKFST 12/03/13 [History] Levothyroxine Sodium [Synthroid] 125 mcg PO DAILY 11/13/15 [History] Calcium Carb/Vitamin D3/Vit K1 [Citracal Soft Chew] 1 tab PO DAILY 03/15/17 [History] Cholecalciferol [Vitamin D3] 1,000 unit PO DAILY 03/15/17 [History] Nortriptyline HCl [Pamelor] 10 mg PO HS 03/15/17 [History] Atorvastatin [Lipitor] 20 mg PO HS tab 03/17/17 [Rx] Carbidopa/Levodopa [Sinemet 25-100 mg] 1 tab PO TID 07/24/18 [History] Diltiazem HCl [Cartia Xt] 180 mg PO DAILY 07/24/18 [History] HYDROcodone/APAP 7.5-325MG [[place] 7.5-325] 1 tab PO Q6H 07/24/18 [History] Olmesartan [Benicar] 20 mg PO DAILY 07/24/18 [History] Teriflunomide [Aubagio] 14 mg PO DAILY@1900 07/24/18 [History] Vitamin B Complex 1 cap PO DAILY 07/24/18 [History] Levofloxacin [Levaquin] 500 mg PO Q24H 7 Days #7 tab 07/26/18 [Rx] Oseltamivir [Tamiflu] 75 mg PO Q12HR 3 Days #6 cap 07/26/18 [Rx] Follow up Appointment(s)/Referral(s): All Greenberg MD [Primary Care Provider] - 1-2 days José Cantu MD [STAFF PHYSICIAN] - 1 Week
--- NOTE | 2018-07-27 13:14 | ECHOF ---
Referral Reason:sob MEASUREMENTS -------- HEIGHT: 127.0 cm WEIGHT: 77.1 kg BP: IVSd: 1.1 cm (0.6 - 1.1) LVIDd: 2.7 cm (3.9 - 5.3) LVPWd: 1.2 cm (0.6 - 1.1) IVSs: 1.4 cm LVIDs: 2.1 cm LVPWs: 1.6 cm Ao Diam: 2.8 cm (2.0 - 3.7) LA Diam: 3.5 cm (2.7 - 3.8) MV E Denilson: 0.93 m/s MV DecT: 257 ms MV A Denilson: 1.10 m/s MV E/A Ratio: 0.85 RAP: 5.00 mmHg RVSP: 36.80 mmHg FINDINGS -------- Sinus rhythm. This was a technically adequate study. The left ventricular size is normal. There is mild concentric left ventricular hypertrophy. Overa ll left ventricular systolic function is low-normal with, an EF between 50 - 55 %. The right ventricle is normal in size. The left atrial size is normal. The right atrial size is normal. There is mild aortic valve sclerosis. There is no evidence of aortic regurgitation. Mild mitral annular calcification present. Mild mitral regurgitation is present. Mild tricuspid regurgitation present. There is mild pulmonary hypertension. The right ventricular systolic pressure, as measured by Doppler, is 36.80mmHg. The TV leaflets are thickenned. The pulmonic valve was not well visualized. The aortic root size is normal. There is a trivial pericardial effusion present. CONCLUSIONS -------- 1. This was a technically adequate study. 2. The left ventricular size is normal. 3. Overall left ventricular systolic function is low-normal with, an EF between 50 - 55 %. 4. The right ventricle is normal in size. 5. The left atrial size is normal. 6. The right atrial size is normal. 7. There is mild aortic valve sclerosis. 8. Mild mitral annular calcification present. 9. Mild mitral regurgitation is present. 10. Mild tricuspid regurgitation present. 11. There is mild pulmonary hypertension. 12. The right ventricular systolic pressure, as measured by Doppler, is 36.80mmHg. 13. The TV leaflets are thickenned. 14. The pulmonic valve was not well visualized. 15. The aortic root size is normal. 16. There is a trivial pericardial effusion present. GARBAGE TRUCK HELPER: Krystyna Gibbs RDCS
== END 2018-07-26 17:15 | disposition home or self-care (01) | DRG 194 ==
LOC: EC 14:21 → 1SOBS 16:49 → OBSVTOIN 16:49 → 3NMEDONC 07-25 17:56
PROVIDERS: ADMIT Family Medicine; ATTEND Family Medicine
DX: J10.1 Influenza due to other identified influenza virus with other respiratory manifestations (principal); N39.0 Urinary tract infection, site not specified; G20 Parkinson's disease; G35 Multiple sclerosis; I10 Essential (primary) hypertension; E89.2 Postprocedural hypoparathyroidism; G43.909 Migraine, unspecified, not intractable, without status migrainosus; K21.9 Gastro-esophageal reflux disease without esophagitis; M19.90 Unspecified osteoarthritis, unspecified site; M81.0 Age-related osteoporosis without current pathological fracture; K44.9 Diaphragmatic hernia without obstruction or gangrene; F41.9 Anxiety disorder, unspecified; Z79.83 Long term (current) use of bisphosphonates; Z79.02 Long term (current) use of antithrombotics/antiplatelets; Z79.890 Hormone replacement therapy; Z79.891 Long term (current) use of opiate analgesic; Z79.899 Other long term (current) drug therapy; Z86.73 Personal history of transient ischemic attack (TIA), and cerebral infarction without residual deficits; Z90.49 Acquired absence of other specified parts of digestive tract; Z90.710 Acquired absence of both cervix and uterus; Z88.1 Allergy status to other antibiotic agents; Z88.2 Allergy status to sulfonamides; Z88.8 Allergy status to other drugs, medicaments and biological substances; Z83.3 Family history of diabetes mellitus; Z83.2 Family history of diseases of the blood and blood-forming organs and certain disorders involving the immune mechanism; Z80.42 Family history of malignant neoplasm of prostate
CPT/HCPCS: 36415; 71046; 80053; 80061; 81003; 83605; 83880; 84484; 85025; 85610; 85730; 87040; 87077; 87086; 87186; 87502; 93005; 93306; 99285

== ENCOUNTER → 2018-07-30 | Outpatient (CLI) | payer BC ==
--- NOTE | 2018-07-30 16:15 | XR ---
EXAMINATION TYPE: XR chest 2V DATE OF EXAM: 07/30/2018 HISTORY: Shortness of breath. COMPARISON: 07/24/2018 TECHNIQUE: Single view of the chest is submitted. FINDINGS: Demonstrated are scattered senescent parenchymal change. There is no evidence for focal infiltrate. The heart is stable. Hilar and mediastinal structures are within normal limits. Degenerative changes are seen of the dorsal spine. IMPRESSION: 1. Chronic changes without evidence for acute pulmonary disease.
== END | disposition home or self-care (01) ==
LOC: RADXRMAIN 15:47
PROVIDERS: ATTEND Family Medicine
DX: R91.8 Other nonspecific abnormal finding of lung field (principal)
CPT/HCPCS: 71046

== ENCOUNTER → 2018-10-04 | Outpatient (CLI) | payer BC ==
--- NOTE | 2018-10-04 15:24 | BD ---
EXAMINATION TYPE: Axial Bone Density DATE OF EXAM: 10/04/2018 COMPARISON: 2016 CLINICAL HISTORY: Height: 58 inches Weight: 170 FRAX RISK QUESTIONS: Alcohol (3 or more units per day): no Family History (Parent hip fracture): no Glucocorticoids (More than 3mos): no (Ex: prednisone, prednisolone, methylprednisolone, dexamethasone, and hydrocortisone). History of Fracture in Adulthood: yes Secondary Osteoporosis: 1. Type 1 Diabetes: no 2. Hyperthyroidism: no 3. Menopause before 45: yes 4. Malnutrition: no 5. Chronic liver disease: no Rheumatoid Arthritis: unsure Current Tobacco Use: no RISK FACTORS HISTORY OF: History of Wrist Fracture: yes, both When: age 50 Family History of Osteoporosis: unsure Active: yes Diet low in dairy products/other sources of calcium: no Postmenopausal woman: yes Take estrogen and/or progesterone medications: no Lost more than 2 inches in height since high school: no Frequent falls: no Poor Health: no Hyperparathyroidism: unsure Adrenal Insufficiency: no MEDICATIONS: Prednisone or other steroids: no Thyroid Medications: yes Which medication: Synthroid How Long: over 10 years Osteoporosis Medications:yes Which medication: Fosamax How Long: about 10 years Additional Medications: Lipitor, Plavix, CartiaXT, Benicar, Pamelor, Prilosec, Antivert, Provigil, Vi tamin D3, Calcium Citrate, Vitamim B Comples, Hydrocod/acetam Additional History: MS, Parkinsons, several TIAs, Parathyroid removed EXAM MEASUREMENTS: Bone mineral densitometry was performed using the [employer] System. Bone mineral density as measured about the Lumbar spine is: ----- L1-L4(G/cm2): 0.989 T Score Values are as follows: ----- L2: -1.5 ----- L3: -1.5 ----- L4: -1.6 ----- L1-L4: -1.6 Bone mineral density has: Increased 9.0% since study of: 10/26/2015 Bone mineral density about the R hip (g/cm2): 0.741 Bone mineral density about the L hip (g/cm2): 0.777 T Score values are as follows: -----R Neck: -2.1 -----L Neck: -1.9 -----R Total: -2.1 -----L Total: -1.7 Bone mineral density has: Increased 1.9% since study of: 10/26/2015 IMPRESSION: Osteopenia (T Score between -2.5 and -1). There is slightly increased risk of fracture and the patient may be considered for treatment. Re-Screen 2-5 years. NOTE: T-SCORE=SD OF THE YOUNG ADULT MEAN.
--- NOTE | 2018-10-05 10:38 | MM ---
Reason for exam: screening (asymptomatic). Last mammogram was performed 1 year and 4 months ago. History: Patient is postmenopausal and is nulliparous. Family history of breast cancer in aunt. Physical Findings: A clinical breast exam by your physician is recommended on an annual basis and results should be correlated with mammographic findings. MG Screening Mammo w CAD Bilateral CC and MLO view(s) were taken. Prior study comparison: May 30, 2017, bilateral MG screening mammo w CAD. October 26, 2015, bilateral MG screening mammo w CAD. There are scattered fibroglandular densities. No significant changes when compared with prior studies. ASSESSMENT: Benign, BI-RAD 2 RECOMMENDATION: Routine screening mammogram of both breasts in 1 year.
== END | disposition home or self-care (01) ==
LOC: RADBDWWP 13:20
PROVIDERS: ATTEND Family Medicine
DX: Z12.31 Encounter for screening mammogram for malignant neoplasm of breast (principal); M85.88 Other specified disorders of bone density and structure, other site; Z78.0 Asymptomatic menopausal state
CPT/HCPCS: 77067; 77080

== ENCOUNTER → 2019-03-29 | Outpatient (CLI) | payer BC ==
[2019-03-29 10:25] LABS: Basophils # (A) 0.2 k/uL (0-0.2); Basophils % (A) 2 %; Eosinophils # (A) 0.1 k/uL (0-0.7); Eosinophils % (A) 1 %; HCT 45.7 % (34.0-46.0); HGB 14.8 gm/dL (11.4-16.0); Lymphocytes % (A) 14 %; MCH 30.1 pg (25.0-35.0); MCHC 32.5 g/dL (31.0-37.0); MCV 92.5 fL (80.0-100.0); Monocytes # (A) 0.4 k/uL (0-1.0); Monocytes % (A) 6 %; Neutrophils # (A) 5.6 k/uL (1.3-7.7); Neutrophils % (A) 76 %; Platelet Count 267 k/uL (150-450); RBC 4.93 m/uL (3.80-5.40); RDW 14.3 % (11.5-15.5); WBC 7.4 k/uL (3.8-10.6)
[2019-03-29 15:56] LABS: African American GFR (CKD) 90.9 (60.0-200.0); Albumin 4.9 g/dL (3.80-4.90); Albumin/Globulin Ratio 2.88 (1.60-3.17); Anion Gap 10.4 mmol/L (4.00-12.00); BUN/Creat Ratio 21.25 Ratio (12.00-20.00); Calcium 9.3 mg/dL (8.7-10.3); Carbon Dioxide 25.6 mmol/L (21.6-31.8); Globulin 1.7 g/dL (1.6-3.3); Potassium 4.2 mmol/L (3.5-5.5); Total Bilirubin 0.5 mg/dL (0.2-1.2); Total Protein 6.6 g/dL (6.2-8.2)
[2019-03-29 16:15] LABS: HIV 1 AB Non-Reactive (Non-Reactive); HIV 2 AB Non-Reactive (Non-Reactive); HIV AB P24 Non-Reactive (Non-Reactive); HIV P24 AG Non-Reactive (Non-Reactive)
[2019-03-29 16:47] LABS: Hemoglobin A1C 5.3 % (4.0-6.0)
[2019-03-29 17:21] LABS: Hepatitis B Core IgM Non-Reactive (Non-Reactive); Hepatitis B Surface AB- Quant 3.5 mIU/mL; Hepatitis B Surface Antibody Non-Reactive (Non-Reactive); Hepatitis B Surface Antigen Non-Reactive (Non-Reactive)
[2019-04-01 03:07] LABS: Varicella IgM Antibody 0.09 INDEX (<=0.90)
== END | disposition home or self-care (01) ==
LOC: LABWHC1 09:12
PROVIDERS: ATTEND Nurse Practitioner Acute Care
DX: G35 Multiple sclerosis (principal)
CPT/HCPCS: 36415; 80053; 82306; 82607; 83036; 84207; 84425; 84443; 85025; 86480; 86704; 86705; 86706; 86787; 87340; 87390

== ENCOUNTER 2019-04-25 12:14 | Observation (INO) | payer BC ==
[2019-04-25] MEDS ORDERED: ASPIRIN 81 MG PO STA (12:36)
--- NOTE | 2019-04-25 12:45 | ED ---
General Adult HPI - General Chief complaint: Chest Pain Stated complaint: Abnormal EKG Time Seen by Provider: 04/25/19 12:29 Source: patient, RN notes reviewed, old records reviewed (Reviewed EKG from office.) Mode of arrival: ambulatory Limitations: no limitations - History of Present Illness Initial comments: Patient is a pleasant 63-year-old female presenting to the emergency department after being transferred from the primary care physician office. Patient states 3 or 4 days ago she had an episode of lightheadedness and nausea and sweating. Patient felt near syncopal. Patient states she did have some chest discomfort 2 days ago. Patient did see her doctor today. It was some concern with her EKG and patient was advised come to the hospital. Patient denies any chest discomfort at this time. Patient only feels a little bit lightheaded. No dyspnea. No nausea or diaphoresis. - Related Data Home Medications Medication Instructions Recorded Confirmed Alendronate Sodium [Fosamax] 70 mg PO TU 12/03/13 04/25/19 Clopidogrel [Plavix] 75 mg PO DAILY 12/03/13 04/25/19 Meclizine [Antivert] 25 mg PO DAILY 12/03/13 04/25/19 Modafinil [Provigil] 200 mg PO QAM 12/03/13 04/25/19 Omeprazole [PriLOSEC] 20 mg PO AC-BRKFST 12/03/13 04/25/19 Levothyroxine Sodium [Synthroid] 125 mcg PO DAILY 11/13/15 04/25/19 Calcium Carb/Vitamin D3/Vit K1 1 tab PO DAILY 03/15/17 04/25/19 [Citracal Soft Chew] Cholecalciferol [Vitamin D3 (25 1,000 unit PO DAILY 03/15/17 04/25/19 Mcg = 1000 Iu)] Nortriptyline HCl [Pamelor] 10 mg PO HS 03/15/17 04/25/19 Diltiazem HCl [Cartia Xt] 180 mg PO DAILY 07/24/18 04/25/19 HYDROcodone/APAP 7.5-325MG [[place] 1 tab PO Q6H PRN 07/24/18 04/25/19 7.5-325] Olmesartan [Benicar] 20 mg PO DAILY 07/24/18 04/25/19 Teriflunomide [Aubagio] 14 mg PO DAILY@1900 07/24/18 04/25/19 Vitamin B Complex 1 cap PO DAILY 07/24/18 04/25/19 Carbidopa-Levodopa 25-250 mg 1 tab PO TID 04/25/19 04/25/19 [Sinemet 25-250] Previous Rx's Medication Instructions Recorded Atorvastatin [Lipitor] 20 mg PO HS tab 03/17/17 Allergies Allergy/AdvReac Type Severity Reaction Status Date / Time doxycycline AdvReac upset Verified 04/25/19 15:37 stomach doxycycline hyclate AdvReac Vomiting Verified 04/25/19 15:37 [From Vibra-Tabs] isosorbide [From Imdur] AdvReac MIGRAINE Verified 04/25/19 15:37 HEADACHE Sulfa (Sulfonamide AdvReac Vomiting Verified 04/25/19 15:37 Antibiotics) Review of Systems ROS Statement: Those systems with pertinent positive or pertinent negative responses have been documented in the HPI. ROS Other: All systems not noted in ROS Statement are negative. Constitutional: Denies: fever Eyes: Denies: eye pain ENT: Denies: ear pain Respiratory: Denies: cough, dyspnea Cardiovascular: Reports: as per HPI, chest pain Endocrine: Denies: fatigue Gastrointestinal: Denies: abdominal pain Genitourinary: Denies: dysuria Musculoskeletal: Denies: back pain Skin: Denies: rash Neurological: Denies: weakness Past Medical History Past Medical History: CVA/TIA, GERD/Reflux, Hypertension, Osteoarthritis (OA), Thyroid Disorder Additional Past Medical History / Comment(s): MS, migranes, 6 TIA , hiatal hernia, osteoporosis, hypothyroid, parkinsons History of Any Multi-Drug Resistant Organisms: None Reported Past Surgical History: Cholecystectomy, Hysterectomy, Orthopedic Surgery Additional Past Surgical History / Comment(s): LEFT KNEE SX; RIGHT ELBOW/SHOULDER SX; eye surgery bilat, bilat carpel tunnel PARATHYROID SURGERY 2016 Past Anesthesia/Blood Transfusion Reactions: Postoperative Nausea & Vomiting (PONV) Past Psychological History: Anxiety Smoking Status: Never smoker Past Alcohol Use History: None Reported Past Drug Use History: None Reported - Past Family History Mother Family Medical History: Cancer, Diabetes Mellitus, Deep Vein Thrombosis (DVT) Additional Family Medical History / Comment(s): KIDNEY Father Family Medical History: Cancer Additional Family Medical History / Comment(s): PROSTATE General Exam Limitations: no limitations General appearance: alert, in no apparent distress Head exam: Present: normocephalic Eye exam: Present: normal appearance, PERRL ENT exam: Present: normal oropharynx Neck exam: Present: normal inspection Respiratory exam: Present: normal lung sounds bilaterally. Absent: chest wall tenderness Cardiovascular Exam: Present: regular rate, normal rhythm Expanded Peripheral pulses: 2+: Radial (R), Radial (L), Posterior Tibialis (R), Posterior Tibialis (L), Dorsalis Pedis (R), Dorsalis Pedis (L) GI/Abdominal exam: Present: soft. Absent: tenderness Extremities exam: Present: normal inspection. Absent: pedal edema, calf tenderness Neurological exam: Present: alert Psychiatric exam: Present: normal affect, normal mood Skin exam: Present: normal color Course Vital Signs 04/25/19 04/25/19 04/25/19 12:20 14:04 15:32 Temperature 97.9 F 98.3 F Pulse Rate 101 H 86 92 Respiratory 16 18 18 Rate Blood Pressure 134/91 124/90 145/94 O2 Sat by Pulse 97 96 95 Oximetry - Reevaluation(s) Reevaluation #1: 04/25/19 15:49 Case was discussed with Dr. Pryor, covering for Dr. Greenberg, who will admit. EKG Findings - EKG Comments: EKG Findings:: Sinus rhythm at 100. Short VA 106. QRS 80. QT 344. QTC 443. Normal axis. Right atrial enlargement. Nonspecific ST-T. There is appearance of T-wave inversion/flattened or decreased ST in the inferior leads. Medical Decision Making - Medical Decision Making Patient reevaluated and updated. Dr. Greenberg has been paged for admission of his patient. - Lab Data Result diagrams: 04/25/19 12:45 04/25/19 12:45 Lab Results 04/25/19 04/25/19 04/25/19 Range/Units 12:45 12:45 12:45 WBC 7.2 (3.8-10.6) k/uL RBC 4.50 (3.80-5.40) m/uL Hgb 13.3 (11.4-16.0) gm/dL Hct 41.7 (34.0-46.0) % MCV 92.8 (80.0-100.0) fL MCH 29.5 (25.0-35.0) pg MCHC 31.8 (31.0-37.0) g/dL RDW 14.1 (11.5-15.5) % Plt Count 269 (150-450) k/uL Neutrophils % 75 % Lymphocytes % 14 % Monocytes % 8 % Eosinophils % 1 % Basophils % 1 % Neutrophils # 5.4 (1.3-7.7) k/uL Lymphocytes # 1.0 (1.0-4.8) k/uL Monocytes # 0.5 (0-1.0) k/uL Eosinophils # 0.1 (0-0.7) k/uL Basophils # 0.0 (0-0.2) k/uL PT 10.6 (9.0-12.0) sec INR 1.0 (<1.2) APTT 21.2 L (22.0-30.0) sec Sodium 142 (137-145) mmol/L Potassium 4.1 (3.5-5.1) mmol/L Chloride 107 (98-107) mmol/L Carbon Dioxide 26 (22-30) mmol/L Anion Gap 9 mmol/L BUN 16 (7-17) mg/dL Creatinine 0.71 (0.52-1.04) mg/dL Est GFR (CKD-EPI)AfAm >90 (>60 ml/min/1.73 sqM) Est GFR (CKD-EPI)NonAf >90 (>60 ml/min/1.73 sqM) Glucose 128 H (74-99) mg/dL Calcium 9.9 (8.4-10.2) mg/dL Magnesium 1.8 (1.6-2.3) mg/dL Total Bilirubin 0.5 (0.2-1.3) mg/dL AST 28 (14-36) U/L ALT 19 (9-52) U/L Alkaline Phosphatase 142 H (38-126) U/L Creatine Kinase 80 (30-135) U/L Troponin I (0.000-0.034) ng/mL Total Protein 7.1 (6.3-8.2) g/dL Albumin 4.3 (3.5-5.0) g/dL 04/25/19 Range/Units 12:45 WBC (3.8-10.6) k/uL RBC (3.80-5.40) m/uL Hgb (11.4-16.0) gm/dL Hct (34.0-46.0) % MCV (80.0-100.0) fL MCH (25.0-35.0) pg MCHC (31.0-37.0) g/dL RDW (11.5-15.5) % Plt Count (150-450) k/uL Neutrophils % % Lymphocytes % % Monocytes % % Eosinophils % % Basophils % % Neutrophils # (1.3-7.7) k/uL Lymphocytes # (1.0-4.8) k/uL Monocytes # (0-1.0) k/uL Eosinophils # (0-0.7) k/uL Basophils # (0-0.2) k/uL PT (9.0-12.0) sec INR (<1.2) APTT (22.0-30.0) sec Sodium (137-145) mmol/L Potassium (3.5-5.1) mmol/L Chloride (98-107) mmol/L Carbon Dioxide (22-30) mmol/L Anion Gap mmol/L BUN (7-17) mg/dL Creatinine (0.52-1.04) mg/dL Est GFR (CKD-EPI)AfAm (>60 ml/min/1.73 sqM) Est GFR (CKD-EPI)NonAf (>60 ml/min/1.73 sqM) Glucose (74-99) mg/dL Calcium (8.4-10.2) mg/dL Magnesium (1.6-2.3) mg/dL Total Bilirubin (0.2-1.3) mg/dL AST (14-36) U/L ALT (9-52) U/L Alkaline Phosphatase (38-126) U/L Creatine Kinase (30-135) U/L Troponin I <0.012 (0.000-0.034) ng/mL Total Protein (6.3-8.2) g/dL Albumin (3.5-5.0) g/dL - Radiology Data Radiology results: image reviewed (Chest x-ray shows no acute process) Disposition Clinical Impression: Chest pain Disposition: ADMITTED IP TO THIS HOSP Is patient prescribed a controlled substance at d/c from ED?: No Decision Time: 15:00
[2019-04-25 13:12] LABS: Basophils % (A) 1 %; Eosinophils # (A) 0.1 k/uL (0-0.7); Eosinophils % (A) 1 %; HCT 41.7 % (34.0-46.0); HGB 13.3 gm/dL (11.4-16.0); Lymphocytes % (A) 14 %; MCH 29.5 pg (25.0-35.0); MCHC 31.8 g/dL (31.0-37.0); MCV 92.8 fL (80.0-100.0); Mean Platelet Volume 7.1; Monocytes # (A) 0.5 k/uL (0-1.0); Monocytes % (A) 8 %; Neutrophils # (A) 5.4 k/uL (1.3-7.7); Neutrophils % (A) 75 %; Platelet Count 269 k/uL (150-450); RDW 14.1 % (11.5-15.5); WBC 7.2 k/uL (3.8-10.6)
[2019-04-25 13:27] LABS: ALT 19 U/L (9-52); AST 28 U/L (14-36); African American GFR (CKD) >90 (>60 ml/min/1.73 sqM); Albumin 4.3 g/dL (3.5-5.0); Alkaline Phosphatase 142 U/L (38-126); Anion Gap 9 mmol/L; Blood Urea Nitrogen 16 mg/dL (7-17); Calcium 9.9 mg/dL (8.4-10.2); Carbon Dioxide 26 mmol/L (22-30); Chloride 107 mmol/L (98-107); Creatine Kinase 80 U/L (30-135); Glucose 128 mg/dL (74-99); Magnesium 1.8 mg/dL (1.6-2.3); Non-African American GFR(CKD) >90 (>60 ml/min/1.73 sqM); Potassium 4.1 mmol/L (3.5-5.1); Sodium 142 mmol/L (137-145); Total Bilirubin 0.5 mg/dL (0.2-1.3); Total Protein 7.1 g/dL (6.3-8.2)
[2019-04-25 13:31] LABS: Prothrombin Time 10.6 sec (9.0-12.0)
[2019-04-25 13:35] LABS: Partial Thromboplastin Time 21.2 sec (22.0-30.0)
--- NOTE | 2019-04-25 13:35 | XR ---
EXAMINATION TYPE: XR chest 2V DATE OF EXAM: 04/25/2019 COMPARISON: 07/30/2018 HISTORY: Chest pain TECHNIQUE: Frontal and lateral views of the chest are obtained. FINDINGS: There is no focal air space opacity, pleural effusion, or pneumothorax seen. The cardiac silhouette size is stable. The osseous structures are intact. Cholecystectomy clips are present. IMPRESSION: No acute cardiopulmonary process.
[2019-04-25] MEDS ORDERED: NITROGLYCERIN SL TABS 0.4 MG TAB SUBLINGUAL PRN (15:01)
[2019-04-25] MEDS ORDERED: HYDROcodone/APAP 7.5-325MG 1 EACH TAB PO PRN (17:23)
[2019-04-25] MEDS: CARBIDOPA-LEVODOPA 25-250 MG 1 EACH TAB PO SCH (20:47)
[2019-04-25] MEDS ORDERED: ATORVASTATIN 20 MG TAB PO SCH (21:00)
[2019-04-25] MEDS ORDERED: NORTRIPTYLINE 10 MG CAP PO SCH (21:00)
--- NOTE | 2019-04-25 22:52 | HP ---
HISTORY AND PHYSICAL I am covering for Dr. Greenberg. DATE OF SERVICE: 04/25/2019 CHIEF COMPLAINT: Chest pain. HISTORY OF PRESENT ILLNESS: This 63-year-old woman with a past medical history of CVA, TIA, GERD, hypertension, DJD, history of multiple sclerosis, Parkinson's, history of TIA, osteoporosis, hypothyroidism, being followed by Dr. All Greenberg in the outpatient setting, apparently was working with a Endoclear service in on Monday. The patient felt suddenly sweaty and felt dizzy, almost weak, and lost balance. The patient also had some chest pains on the right side. The patient had a syncopal episode at this time. Because of lack of improvement, the patient went to Dr. All Greenberg's office and EKG showed multiple abnormalities, including ST-T changes as well as possible incomplete right bundle branch block and S1 pattern and the patient was admitted for further evaluation and treatment. There is no history of any fever, rigor or chills. No history of headache, loss of consciousness, seizures. PAST MEDICAL HISTORY: 1. History of CVA, TIA. 2. GERD. 3. Hypertension. 4. History of DJD. 5. History of hypothyroidism. 6. History of multiple sclerosis. 7. History of migraine, TIA. 8. Cholecystectomy. 9. History of anxiety. HOME MEDICATIONS: 1. Aubagio. 2. Sinemet 20/250 one p.o. t.i.d. 3. Vitamin B complex 1 p.o. daily. 4. Provigil 200 mg p.o. each morning. 5. Synthroid 125 mcg p.o. daily. 6. [place] 7.5 q.6 p.r.n. 7. Vitamin D3 1000 p.o. daily. 8. Prilosec 20 mg before breakfast. 9. Benicar 20 mg p.o. daily. 10.Pamelor 10 mg p.o. at bedtime. 11.Antivert 25 mg p.o. daily. 12.Cartia XT 180 mg p.o. daily. 13.Plavix 75 mg p.o. daily. 14.Lipitor 20 mg at bedtime. 15.Fosamax 70 mg p.o. Monday. ALLERGIES: 1. DOXYCYCLINE. 2. IMDUR. 3. SULFA. FAMILY HISTORY: History of diabetes mellitus, DVT, history of kidney disease. SOCIAL HISTORY: No history of smoking. No history of alcohol intake. REVIEW OF SYSTEMS: ENT: No diminished hearing. No diminished vision. CARDIOVASCULAR SYSTEM: As mentioned earlier. RESPIRATORY SYSTEM: As mentioned earlier. GI: No nausea, vomiting. : No dysuria or retention. NERVOUS SYSTEM: As mentioned earlier. ALLERGY/IMMUNOLOGY: No asthma, hayfever. MUSCULOSKELETAL: As mentioned earlier. HEMATOLOGY/ONCOLOGY: No history of anemia. ENDOCRINE: Hypothyroidism present. CONSTITUTIONAL: As mentioned earlier. DERMATOLOGY: Negative. RHEUMATOLOGY: Negative. PSYCHIATRY: As mentioned earlier. PHYSICAL EXAMINATION: Patient alert and oriented x3. Pulse 96, blood pressure 160/80, respiration 18, temperature 98.1, pulse ox 94% on room air. HEENT: Conjunctivae normal. Oral mucosa moist. NECK: No jugular venous distention. No carotid bruit. No lymph node enlargement. CARDIOVASCULAR SYSTEM: S1, S2 muffled. No S3. No S4. RESPIRATORY SYSTEM: Breath sounds diminished at the bases. A few scattered rhonchi and crackles. ABDOMEN: Soft, non-tender. No mass palpable. LEGS: No edema. No swelling. NERVOUS SYSTEM: Higher functions as mentioned earlier. Moves all 4 limbs. No focal motor or sensory deficit. LYMPHATICS: No lymph node palpable in neck, axillae or groin. SKIN: No ulcer, rash, bleeding. JOINTS: No active deforming arthropathy. LABS: Labs at this time show WBC 7.2, hemoglobin 13.3. Sodium 142, potassium 4.1. ASSESSMENT: 1. Chest pain for evaluation; rule out myocardial infarction. Unstable angina. 2. Dizziness and near-syncope; rule out acute pulmonary embolism. 3. Incomplete right bundle branch block and ST-T changes on the EKG. 4. History of Parkinson's. 5. History of multiple sclerosis. 6. History of cerebrovascular accident, transient ischemic attack. 7. Gastroesophageal reflux disease. 8. Degenerative joint disease. 9. History of hiatal hernia. 10.History of osteoporosis. 11.Hypothyroidism. 12.History of cholecystectomy. 13.History of hysterectomy. 14.History of anxiety. RECOMMENDATIONS AND DISCUSSION: In this 63-year-old woman who presented with multiple complex medical issues, we will monitor the patient closely, continue the current medications, continue with symptomatic treatment. Otherwise at this time I recommend a set of troponins. Unstable angina protocol. Consult Cardiology and neurology. Otherwise, I would recommend a 2D echo with Doppler and continue to monitor. The prognosis is guarded because of multiple complex medical issues. Further recommendations to follow. I will order a D-dimer and if it is positive, will order CT angio to rule out the possibility of pulmonary embolism. Discussed with the patient. Home medications will be continued. Further recommendations to follow. A copy of this dictation is being forwarded to Dr. All Greenberg, who is the primary physician. MMMAHADL / DEDRICKN: [id number] / MTDD
[2019-04-26] MEDS ORDERED: PANTOPRAZOLE 40 MG TABLET PO SCH (07:30)
[2019-04-26 07:52] LABS: Basophils % (A) 1 %; Eosinophils # (A) 0.1 k/uL (0-0.7); Eosinophils % (A) 2 %; HCT 38.6 % (34.0-46.0); HGB 12.3 gm/dL (11.4-16.0); Lymphocytes # (A) 1.2 k/uL (1.0-4.8); Lymphocytes % (A) 21 %; MCH 29.7 pg (25.0-35.0); MCHC 31.8 g/dL (31.0-37.0); MCV 93.3 fL (80.0-100.0); Mean Platelet Volume 6.9; Monocytes # (A) 0.4 k/uL (0-1.0); Monocytes % (A) 7 %; Neutrophils # (A) 3.8 k/uL (1.3-7.7); Neutrophils % (A) 67 %; Platelet Count 202 k/uL (150-450); RBC 4.14 m/uL (3.80-5.40); RDW 14.2 % (11.5-15.5); WBC 5.7 k/uL (3.8-10.6)
[2019-04-26 08:02] LABS: African American GFR (CKD) >90 (>60 ml/min/1.73 sqM); Anion Gap 6 mmol/L; Blood Urea Nitrogen 21 mg/dL (7-17); Calcium 9.1 mg/dL (8.4-10.2); Carbon Dioxide 29 mmol/L (22-30); Chloride 106 mmol/L (98-107); Cholesterol 131 mg/dL (<200); Glucose 96 mg/dL (74-99); HDL Cholesterol 61 mg/dL (40-60); LDL Cholesterol,Calculated 59 mg/dL (0-99); Non-African American GFR(CKD) 79 (>60 ml/min/1.73 sqM); Potassium 4.4 mmol/L (3.5-5.1); Sodium 141 mmol/L (137-145); Triglycerides 53 mg/dL (<150)
[2019-04-26 08:25] VITALS: RESP 18
[2019-04-26 08:41] LABS: Appearance,Urine Clear (Clear); Bilirubin,Urine Negative (Negative); Blood,Urine Negative (Negative); Color,Urine Yellow; Glucose,Urine (UA) Negative (Negative); Ketones,Urine Negative (Negative); Leukocyte Esterase,Urine Negative (Negative); Nitrite,Urine Negative (Negative); PH, Urine 5.5 (5.0-8.0); Protein,Urine Negative (Negative); Specific Gravity,Urine 1.023 (1.001-1.035); Urobilinogen,Urine <2.0 mg/dL (<2.0)
[2019-04-26] MEDS ORDERED: METOPROLOL TARTRATE 25 MG TAB PO SCH (09:00)
[2019-04-26] MEDS ORDERED: CALCIUM CARB-VIT D 500MG-200UN 1 EACH TAB PO SCH (09:00)
[2019-04-26] MEDS ORDERED: NON FORMULARY DRUG (Vitamin B Complex [Vitamin B Complex] 1 CAP) PO SCH (09:00)
[2019-04-26] MEDS ORDERED: ASPIRIN 81 MG PO SCH (09:00)
[2019-04-26] MEDS ORDERED: LOSARTAN 50 MG TAB PO SCH (09:00)
[2019-04-26] MEDS ORDERED: DILTIAZEM CD 180 MG CAP.ER.24H PO SCH (09:00)
[2019-04-26] MEDS ORDERED: MECLIZINE 25 MG TAB PO SCH (09:00)
[2019-04-26] MEDS ORDERED: LEVOTHYROXINE 125 MCG TAB PO SCH (09:00)
[2019-04-26] MEDS ORDERED: CLOPIDOGREL 75 MG TAB PO SCH (09:00)
[2019-04-26] MEDS ORDERED: CHOLECALCIFEROL 1,000 UNIT TAB PO SCH (09:00)
[2019-04-26] MEDS ORDERED: ASPIRIN 325 MG TAB PO SCH (09:00)
[2019-04-26] MEDS ORDERED: MODAFINIL 200 MG TAB PO SCH (09:00)
[2019-04-26] MEDS ORDERED: METOPROLOL SUCCINATE (ER) 25 MG TAB.ER.24H PO SCH (09:00)
[2019-04-26] MEDS ORDERED: ALPRAZolam 0.25 MG TAB PO PRN (09:46)
[2019-04-26] MEDS ORDERED: ALPRAZolam 0.5 MG TAB PO PRN (09:46)
[2019-04-26] MEDS ORDERED: ASPIRIN 325 MG TAB PO STA (09:46)
[2019-04-26] MEDS ORDERED: SODIUM CHLORIDE 0.9% 1,000 ML in EMPTY BAG 1 BAG IV ONE (09:46)
[2019-04-26] MEDS: CARBIDOPA-LEVODOPA 25-250 MG 1 EACH TAB PO SCH ×2 (09:55→14:56)
--- NOTE | 2019-04-26 10:01 | ECHOF ---
Referral Reason:chf MEASUREMENTS -------- HEIGHT: 132.1 cm WEIGHT: 77.1 kg BP: 120/58 RVIDd: 3.7 cm (< 3.3) IVSd: 1.5 cm (0.6 - 1.1) LVIDd: 3.0 cm (3.9 - 5.3) LVPWd: 1.6 cm (0.6 - 1.1) IVSs: 1.7 cm LVIDs: 2.1 cm LVPWs: 1.8 cm LA Diam: 2.9 cm (2.7 - 3.8) LAESV Index (A-L): 21.40 ml/m Ao Diam: 2.4 cm (2.0 - 3.7) LA Diam: 3.6 cm (2.7 - 3.8) MV EXCURSION: 19.132 mm (> 18.000) MV EF SLOPE: 74 mm/s (70 - 150) EPSS: 0.3 cm MV E Denilson: 0.65 m/s MV DecT: 205 ms MV A Denilson: 1.04 m/s MV E/A Ratio: 0.62 RAP: 5.00 mmHg RVSP: 34.27 mmHg FINDINGS -------- Sinus rhythm. This was a technically adequate study. The left ventricular size is normal. There is moderate concentric left ventricular hypertrophy. O verall left ventricular systolic function is low-normal with, an EF between 50 - 55 %. The right ventricle is mildly enlarged. The left atrial size is normal. Normal LA size by volume 22+/-6 ml/m2. The right atrial size is normal. There is mild aortic valve sclerosis. There is no evidence of aortic regurgitation. Mild mitral annular calcification present. Mild mitral regurgitation is present. Mild tricuspid regurgitation present. Right ventricular systolic pressure is normal at < 35 mmHg. There is no evidence of pulmonary hypertension. There is no pulmonic regurgitation present. The aortic root size is normal. Echo free space represents a pericardial fat pad. CONCLUSIONS -------- 1. Sinus rhythm. 2. This was a technically adequate study. 3. The left ventricular size is normal. 4. There is moderate concentric left ventricular hypertrophy. 5. Overall left ventricular systolic function is low-normal with, an EF between 50 - 55 %. 6. The right ventricle is mildly enlarged. 7. The left atrial size is normal. 8. Normal LA size by volume 22+/-6 ml/m2. 9. The right atrial size is normal. 10. There is mild aortic valve sclerosis. 11. Mild mitral annular calcification present. 12. Mild mitral regurgitation is present. 13. Mild tricuspid regurgitation present. 14. Right ventricular systolic pressure is normal at < 35 mmHg. 15. There is no evidence of pulmonary hypertension. 16. There is no pulmonic regurgitation present. 17. The aortic root size is normal. 18. Echo free space represents a pericardial fat pad. LUMBER HANDLER: Krystyna Gibbs RDCS
--- NOTE | 2019-04-26 10:01 | P.CRDCN ---
History of Present Illness History of present illness: HISTORY OF PRESENTING ILLNESS This is a pleasant 63-year-old female past medical history significant for multiple sclerosis, Parkinson's disease, hypertension, TIA and hypothyroidis m. She presented with chest pain. She follows in the office with Dr. Cantu. We have been asked to see him in consultation for chest pain. She states Monday morning while preparing for evangelical she was outside he signs when she felt acutely dizzy and lightheaded. She states she felt she was going to pass out so she went and sat down. When she sat down she started feeling flushing sensation throughout her entire body, nauseated, weak and then subsequently pain in the upper mid back that felt like there was a ball pushing on her back straight through to her chest. The chest discomfort lasted for approximately 6 minutes. After the chest discomfort subsided continued to feel nauseated and weak. She went home after evangelical and laid down to sleep. She slept for 4-hours and woke up feeling better but ongoing weakness and fatigue. She felt back to herself all week. She saw her PCP yesterday and had an EKG. She was referred to ER for further evaluation. She states last evening around 2300 she felt an episode of chest pressure that was brief and not associated with nausea, vomiting, shortn ess of breath or dizziness. Telemetry was unremarkable surrounding that time. However, this morning she had an episode of atrial tachycardia that was regular and lasted less then 20 seconds. She was asymptomatic at that time. She is seen and examined laying flat in bed in no acute distress. DIAGNOSTICS EKG reveals sinus mechanism, right atrial enlargement, less than [address] depression in the inferior and lateral leads. Chest xray negative for acute cardiopulmonary process. Laboratory reviewed, CBC unremarkable, d-dimer 0.34, sodium 141, potassium 4.4, creatinine 0.8, cardiac enzymes negative 3, LDL 59. Current cardiac medications include Plavix 75 mg daily per neurology secondary to TIA, atorvastatin 20 mg at bedtime and diltiazem 180 mg daily. Most recent cardiac catheterization performed in 2010 revealed normal coronary arteries with no evidence of obstructive disease and normal LV systolic function. Most recent echocardiogram obtained July 2018 revealed preserved LV systolic function with ejection fraction 50-55%, mild MR and mild TR. Most recent stress test performed is a Lexiscan stress test in 2015 was negative for reversible cardiac ischemia. REVIEW OF SYSTEMS At the time of my exam: CONSTITUTIONAL: Denies fever or chills. CARDIOVASCULAR: Denies chest pain, shortness of breath, orthopnea, PND or palpitations. RESPIRATORY: Denies cough. GASTROINTESTINAL: Denies abdominal pain, diarrhea, constipation, nausea or vomiting. MUSCULOSKELETAL: Denies myalgias. NEUROLOGIC: Denies numbness, tingling or weakness. ENDOCRINE: Denies fatigue, weight change, polydipsia or polyurina. GENITOURINARY: Denies burning, hematuria or urgency with micturation. HEMATOLOGIC: Denies history of anemia or bleeding. PHYSICAL EXAMINATION Blood pressure 129/81 heart rate 72 afebrile and maintaining oxygen saturaiton on room air. CONSTITUTIONAL: No apparent distress. HEENT: Head is normocephalic. Pupils are equal, round. Sclerae anicteric. Mucous membranes of the mouth are moist. No JVD. No carotid bruit. CHEST EXAMINATION: Lungs are clear to auscultation. No chest wall tenderness is noted on palpation or with deep breathing. HEART EXAMINATION: Regular rate and rhythm. S1, S2 heard. No murmurs, gallops or rub. ABDOMEN: Soft, nontender. Positive bowel sounds. EXTREMITIES: 2+ peripheral pulses, no lower extremity edema and no calf tenderness. NEUROLOGIC EXAMINATION: Patient is awake, alert and oriented x3. ASSESSMENT Unstable angina Hypertension Dyslipidemia History of TIA Multiple sclerosis Parkinson's disease PLAN Recommend proceeding with cardiac catheterization to assess for underlying coronary artery disease. I have discussed the risks, benefits and alternative therapies for the above-mentioned procedure and for both sedation/analgesia as well as necessary blood product administration, if indicated, as they pertain to this patient. The patient has indicated understanding and acceptance of the risks and procedures discussed. Questions have been answered appropriately and she is agreeable to move forward with the above-stated procedure. Initiate on Toprol 25 mg daily. Obtain 2-D echocardiogram and Doppler study to assess cardiac structure and function. Further recommendations to follow based upon clinical course. Thank you kindly for this consultation. Nurse Practitioner note has been reviewed, I agree with a documented findings and plan of care. Patient was seen and examined. Past Medical History Past Medical History: CVA/TIA, GERD/Reflux, Hypertension, Osteoarthritis (OA), Thyroid Disorder Additional Past Medical History / Comment(s): MS, migranes, 6 TIA , hiatal hernia, osteoporosis, hypothyroid, parkinsons History of Any Multi-Drug Resistant Organisms: None Reported Past Surgical History: Cholecystectomy, Hysterectomy, Orthopedic Surgery Additional Past Surgical History / Comment(s): LEFT KNEE SX; RIGHT ELBOW/SHOULDER SX; eye surgery bilat, bilat carpel tunnel PARATHYROID SURGERY 2016 Past Anesthesia/Blood Transfusion Reactions: Postoperative Nausea & Vomiting (PONV) Past Psychological History: Anxiety Smoking Status: Never smoker Past Alcohol Use History: None Reported Past Drug Use History: None Reported - Past Family History Mother Family Medical History: Cancer, Diabetes Mellitus, Deep Vein Thrombosis (DVT) Additional Family Medical History / Comment(s): KIDNEY Father Family Medical History: Cancer Additional Family Medical History / Comment(s): PROSTATE Medications and Allergies Home Medications Medication Instructions Recorded Confirmed Type Alendronate Sodium [Fosamax] 70 mg PO TU 12/03/13 04/25/19 History Clopidogrel [Plavix] 75 mg PO DAILY 12/03/13 04/25/19 History Meclizine [Antivert] 25 mg PO DAILY 12/03/13 04/25/19 History Modafinil [Provigil] 200 mg PO QAM 12/03/13 04/25/19 History Omeprazole [PriLOSEC] 20 mg PO AC-BRKFST 12/03/13 04/25/19 History Levothyroxine Sodium [Synthroid] 125 mcg PO DAILY 11/13/15 04/25/19 History Calcium Carb/Vitamin D3/Vit K1 1 tab PO DAILY 03/15/17 04/25/19 History [Citracal Soft Chew] Cholecalciferol [Vitamin D3 (25 1,000 unit PO DAILY 03/15/17 04/25/19 History Mcg = 1000 Iu)] Nortriptyline HCl [Pamelor] 10 mg PO HS 03/15/17 04/25/19 History Atorvastatin [Lipitor] 20 mg PO HS tab 03/17/17 04/25/19 Rx Diltiazem HCl [Cartia Xt] 180 mg PO DAILY 07/24/18 04/25/19 History HYDROcodone/APAP 7.5-325MG [[place] 1 tab PO Q6H PRN 07/24/18 04/25/19 History 7.5-325] Olmesartan [Benicar] 20 mg PO DAILY 07/24/18 04/25/19 History Teriflunomide [Aubagio] 14 mg PO DAILY@1900 07/24/18 04/25/19 History Vitamin B Complex 1 cap PO DAILY 07/24/18 04/25/19 History Carbidopa-Levodopa 25-250 mg 1 tab PO TID 04/25/19 04/25/19 History [Sinemet 25-250] Allergies Allergy/AdvReac Type Severity Reaction Status Date / Time doxycycline AdvReac upset Verified 04/25/19 15:37 stomach doxycycline hyclate AdvReac Vomiting Verified 04/25/19 15:37 [From Vibra-Tabs] isosorbide [From Imdur] AdvReac MIGRAINE Verified 04/25/19 15:37 HEADACHE Sulfa (Sulfonamide AdvReac Vomiting Verified 04/25/19 15:37 Antibiotics) Physical Exam Vitals: Vital Signs Temp Pulse Pulse Pulse Resp BP BP 04/26/19 04:00 98.0 F 80 15 120/58 04/25/19 23:42 98.0 F 85 16 131/85 04/25/19 17:27 98.1 F 96 18 160/86 04/25/19 17:13 98.0 F 97 18 141/90 04/25/19 15:32 98.3 F 92 18 145/94 04/25/19 14:04 86 18 124/90 04/25/19 12:20 97.9 F 101 H 16 134/91 Pulse Ox 04/26/19 04:00 97 04/25/19 23:42 98 04/25/19 17:27 95 04/25/19 17:13 97 04/25/19 15:32 95 04/25/19 14:04 96 04/25/19 12:20 97 Intake and Output 04/25/19 04/26/19 04/26/19 22:59 06:59 14:59 Other: Voiding Method Toilet Toilet # Voids 1 Weight 77.111 kg Results 04/26/19 07:31 04/26/19 07:31 Cardiac Enzymes 04/25/19 04/25/19 04/25/19 Range/Units 12:45 12:45 18:43 AST 28 (14-36) U/L Troponin I <0.012 <0.012 (0.000-0.034) ng/mL 04/26/19 Range/Units 00:24 AST (14-36) U/L Troponin I <0.012 (0.000-0.034) ng/mL Coagulation 04/25/19 Range/Units 12:45 PT 10.6 (9.0-12.0) sec APTT 21.2 L (22.0-30.0) sec CBC 04/25/19 04/26/19 Range/Units 12:45 07:31 WBC 7.2 5.7 (3.8-10.6) k/uL RBC 4.50 4.14 (3.80-5.40) m/uL Hgb 13.3 12.3 (11.4-16.0) gm/dL Hct 41.7 38.6 (34.0-46.0) % Plt Count 269 202 (150-450) k/uL Comprehensive Metabolic Panel 04/25/19 Range/Units 12:45 Sodium 142 (137-145) mmol/L Potassium 4.1 (3.5-5.1) mmol/L Chloride 107 (98-107) mmol/L Carbon Dioxide 26 (22-30) mmol/L BUN 16 (7-17) mg/dL Creatinine 0.71 (0.52-1.04) mg/dL Glucose 128 H (74-99) mg/dL Calcium 9.9 (8.4-10.2) mg/dL AST 28 (14-36) U/L ALT 19 (9-52) U/L Alkaline Phosphatase 142 H (38-126) U/L Total Protein 7.1 (6.3-8.2) g/dL Albumin 4.3 (3.5-5.0) g/dL Current Medications Generic Name Dose Route Start Last Admin Trade Name Freq PRN Reason Stop Dose Admin Hydrocodone Bitart/Acetaminophen 1 each 04/25/19 17:23 [place] 7.5-325 PO Q6H PRN Pain Aspirin 325 mg 04/26/19 09:00 Aspirin PO DAILY RONDA Atorvastatin Calcium 20 mg 04/25/19 21:00 04/25/19 20:47 Lipitor PO 20 mg HS RONDA Administration Calcium Carbonate 1 each 04/26/19 09:00 Oscal 500+D PO DAILY RONDA Carbidopa/Levodopa 1 each 04/25/19 22:00 04/25/19 20:47 Sinemet 25-250 PO 1 each TID [facility] Administration Cholecalciferol 1,000 unit 04/26/19 09:00 Vitamin D3 (25 Mcg = 1000 Iu) PO DAILY [facility] Clopidogrel Bisulfate 75 mg 04/26/19 09:00 Plavix PO DAILY [facility] Diltiazem HCl 180 mg 04/26/19 09:00 Cardizem Cd PO DAILY [facility] Levothyroxine Sodium 125 mcg 04/26/19 09:00 Synthroid PO DAILY@0630 [facility] Losartan Potassium 100 mg 04/26/19 09:00 Cozaar PO DAILY [facility] Meclizine HCl 25 mg 04/26/19 09:00 Antivert PO DAILY [facility] Modafinil 200 mg 04/26/19 09:00 Provigil PO QAM [facility] Nitroglycerin 0.4 mg 04/25/19 15:01 Nitrostat SUBLINGUAL Q5M PRN Chest Pain Teriflunomide [ 14 mg 04/25/19 19:00 04/25/19 18:37 Aubagio] PO 14 mg DAILY@1900 [facility] Administration Nortriptyline HCl 10 mg 04/25/19 21:00 04/25/19 20:47 Pamelor PO 10 mg HS [facility] Administration Pantoprazole Sodium 40 mg 04/26/19 07:30 Protonix PO AC-BRKFST [facility] Sodium Chloride 10 ml 04/25/19 21:00 04/25/19 20:47 Saline Flush IV 10 ml BID RONDA Administration Intake and Output 04/25/19 04/26/19 04/26/19 22:59 06:59 14:59 Other: Voiding Method Toilet Toilet # Voids 1 Weight 77.111 kg 04/26/19 07:31 04/25/19 12:45
[2019-04-26] MEDS ORDERED: IV FLUID CONTINUATION 950 ML IV ONE (10:30)
[2019-04-26] MEDS ORDERED: fentaNYL (PF) 50 MCG/ML 2 ML AMP IVP ONE (10:35)
[2019-04-26] MEDS ORDERED: LIDOCAINE 1% INJ 10MG/ML (20 ML MDV) SQ ONE ×2 (10:39)
[2019-04-26] MEDS: VERAPAMIL SYRINGE (5 MG/10 ML) INTRAARTER ONE ×2 (10:44→10:57)
[2019-04-26] MEDS: MIDAZOLAM 2 MG/2 ML VIAL IVP ONE ×2 (10:46→10:59)
[2019-04-26] MEDS ORDERED: HEPARIN SODIUM 1,000 UN/ML (10ML VL) IV ONE (10:51)
[2019-04-26] MEDS ORDERED: HYDROmorphone 1 MG/ML 1 ML SYRINGE IVP ONE (10:58)
[2019-04-26] MEDS ORDERED: NITROGLYCERIN 1000MCG/10ML SYRINGE INTRAARTER ONE ×2 (10:59)
[2019-04-26] MEDS ORDERED: IOPAMIDOL-370 125ML BTL INJ ONE (11:01)
[2019-04-26] MEDS ORDERED: RX INFO: IV CONTRAST WAS GIVEN 1 EACH MISC MISCELLANE PRN (11:15)
[2019-04-26] MEDS ORDERED: SODIUM CHLORIDE 0.9% 1,000 ML IV SCH (11:15)
[2019-04-26 11:52] VITALS: TEMP 97.6
--- NOTE | 2019-04-26 14:05 | CC ---
CARDIAC CATHETERIZATION REPORT Mrs. Tenorio is a 63-year-old female with history of Parkinson's who presented with symptoms of chest discomfort. She was evaluated by Dr. Pennington. Her cardiac enzymes and EKG did not show any acute changes, but because of the pattern of her symptoms, recommendation was made regarding cardiac catheterization, the procedures, risks and complication were discussed with the patient who is in full understanding and agreement. PROCEDURE: Patient was brought to the cardiovascular lab director in a fasting semi-sedated state after receiving fentanyl and Benadryl and achieving moderate conscious sedated state. Using Xylocaine anesthesia and Seldinger technique, a 6-Omani sheath was introduced in the right radial artery. Selective right and left coronary angiography performed using 5- Omani 3.5 bend right and left Francis catheter, multiple views of the coronary artery including hemiaxial views were obtained. Following that, a 5-Omani tight pigtail catheter was introduced in the left ventricle and pressures were calculated. Following that, catheter and sheath were removed. Hemostasis was obtained with deployment of a TR band. There was no immediate complication. Patient is returned to her room in stable condition. Of note, the patient received 4000 units of intravenous heparin. She received intra-arterial verapamil and nitrate because of his severe vasospasm at the end. FINDINGS: 1. FLUOROSCOPY: There was mild calcification involving the mid LAD. 2. LEFT MAIN CORONARY ARTERY: This is a large-sized vessel bifurcating into left circumflex, left main coronary artery has no evidence of high-grade stenosis. 3. LEFT ANTERIOR DESCENDING ARTERY: This is a large-sized vessel reaching toward the apex with a wrap around the apex segment. The proximal segment prior to the takeoff of the first septal store director has a calcification of about 20% plaque. The rest of the vessel has no high-grade stenosis. 4. LEFT CIRCUMFLEX: This is a moderately size vessel giving rise to 2 obtuse marginal branches, giving rise to a small PDA distally. The left circumflex as well as branches have no evidence of obstructive coronary artery disease. 5. RIGHT CORONARY ARTERY: This is a small nondominant vessel that has no evidence of high-grade stenosis. 6. HEMODYNAMICS: There was no gradient across the aortic valve. The left ventricular end-diastolic pressure was 12 to 14 mmHg. CONCLUSION: 1. Mild intimal disease involving the proximal left anterior descending artery. 2. Left dominance. RECOMMENDATION: In view of finding anatomy, I recommend continue medical therapy with aggressive risk modifications being initiated. Those findings and recommendation were discussed with the patient and her family and they are in full understanding and agreement. Duration of procedure is 23 minutes. MMMAHADL / IJN: [id number] / MTDD
[2019-04-26 15:40] VITALS: BP 114/74; PULSE 72
--- NOTE | 2019-04-26 22:41 | DS ---
DISCHARGE SUMMARY DATE OF SERVICE: 04/26/2019 FINAL DIAGNOSES: 1. Chest pain, possibly musculoskeletal, possibly unstable angina, status post cardiac catheterization showing only mild intimal disease involving the proximal left anterior descending coronary artery with left dominance. 2. Dizziness and near-syncope, possibly vasovagal. 3. Incomplete right bundle block and ST-T changes on EKG. 4. History of Parkinson's. 5. History of multiple sclerosis. 6. History of cerebrovascular accident, transient ischemic attack. 7. Gastroesophageal reflux disease. 8. Degenerative joint disease. 9. History of hiatal hernia. 10.History of osteoporosis. 11.History of hypothyroidism. 12.History of cholecystectomy. 13.History of hysterectomy. 14.History of anxiety. DISCHARGE DISPOSITION: The patient will be discharged in stable condition with guarded prognosis. HISTORY OF PRESENT ILLNESS: This 63-year-old woman with a past medical history of multiple medical problems was admitted with chest pain. Myocardial infarction was ruled out. The patient underwent cardiac catheterization showed only minimal disease, and Cardiology recommended the patient be discharged. On exam, vitals are stable. CARDIOVASCULAR SYSTEM: S1, S2 muffled. ABDOMEN: Soft. NERVOUS SYSTEM: No focal deficit. DISCHARGE ADVICE AND MEDICATIONS: 1. Diet is cardiac. 2. Activity limited until followup. 3. Follow up with Dr. Greenberg in 2 to 3 days. 4. Follow up Cardiology as recommended. 5. Antivert 25 mg p.o. daily. 6. Aubagio 14 mg p.o. daily. 7. Benicar 20 mg p.o. daily. 8. Cartia XT 180 mg p.o. daily. 9. Citracal 1 p.o. daily. 10.Fosamax 70 mg p.o. Monday. 11.[place] 7.5 q.6 p.r.n. 12.Pamelor 10 mg p.o. at bedtime. 13.Plavix 75 mg p.o. daily. 14.Prilosec 20 mg with breakfast. 15.Provigil 200 mg p.o. each morning. 16.Sinemet 25/250 one p.o. t.i.d. 17.Synthroid 125 mcg p.o. daily. 18.Vitamin B complex p.o. daily. 19.Vitamin D3 1000 p.o. daily. 20.Lipitor 20 mg p.o. at bedtime. 21.Toprol-XL 25 mg p.o. daily. Once again, the patient will be discharged in stable condition with guarded prognosis. MMJAYE / DEDRICKN: [id number] / MTDD
[2019-04-27] MEDS ORDERED: ASPIRIN 81 MG PO SCH (09:00)
[2019-04-30] MEDS ORDERED: NON FORMULARY DRUG (Alendronate Sodium [Fosamax] 70 MG) PO SCH (17:23)
== END 2019-04-26 17:50 ==
LOC: EC 12:14 → 1SOBS 15:01
PROVIDERS: ADMIT Family Medicine; ATTEND Family Medicine
DX: R07.89 Other chest pain (principal); I25.10 Atherosclerotic heart disease of native coronary artery without angina pectoris; R42 Dizziness and giddiness; R55 Syncope and collapse; I45.10 Unspecified right bundle-branch block; G20 Parkinson's disease; G35 Multiple sclerosis; K21.9 Gastro-esophageal reflux disease without esophagitis; M19.90 Unspecified osteoarthritis, unspecified site; K44.9 Diaphragmatic hernia without obstruction or gangrene; M81.0 Age-related osteoporosis without current pathological fracture; E03.9 Hypothyroidism, unspecified; F41.9 Anxiety disorder, unspecified; I08.3 Combined rheumatic disorders of mitral, aortic and tricuspid valves; I10 Essential (primary) hypertension; G43.909 Migraine, unspecified, not intractable, without status migrainosus; Z86.73 Personal history of transient ischemic attack (TIA), and cerebral infarction without residual deficits; Z90.49 Acquired absence of other specified parts of digestive tract; Z90.710 Acquired absence of both cervix and uterus; Z79.83 Long term (current) use of bisphosphonates; Z79.02 Long term (current) use of antithrombotics/antiplatelets; Z79.899 Other long term (current) drug therapy; Z79.890 Hormone replacement therapy; Z79.891 Long term (current) use of opiate analgesic; Z88.1 Allergy status to other antibiotic agents; Z88.8 Allergy status to other drugs, medicaments and biological substances; Z88.2 Allergy status to sulfonamides; Z98.890 Other specified postprocedural states; Z91.89 Other specified personal risk factors, not elsewhere classified; Z80.51 Family history of malignant neoplasm of kidney; Z83.3 Family history of diabetes mellitus; Z82.49 Family history of ischemic heart disease and other diseases of the circulatory system; Z80.42 Family history of malignant neoplasm of prostate
CPT/HCPCS: 93005 ×2; 93458; 84484 ×2; 99285; 36415; 93306; 85379; 80061; 80053; 80048; 82550; 83735; 85025 ×2; 85610; 85730; 81003; 71046; G0378 ×2; J2250; J2001; J3010; J1644; J1170; Q9967

== ENCOUNTER 2019-12-25 07:26 | Day surgery (SDC) | payer BC ==
[2019-12-20 14:11] VITALS: BMI 33.8
[~2019-12-25 07:26] MED LIST changes: -HEPARIN SODIUM,PORCINE 5,000 UNIT/ML 1 ML VIAL SQ ONE; +HYDROmorphone 0.5 MG/0.5 ML SYRINGE IVP PRN; -LIDOCAINE 1% 20 ML VIAL (10MG/ML) FOR IV START INTRADERMA PRN; -Pre Op ABX Message 1 EACH MISC MISCELLANE ONE; -SCOPOLAMINE 1.5MG/72HR PATCH TRANSDERM ONE
[2019-12-25] MEDS ORDERED: LACTATED RINGERS 1,000 ML IV ONE (07:45)
[2019-12-25] MEDS ORDERED: LIDOCAINE 1% (10MG/ML) FOR IV START INTRADERMA ONE (07:45)
[2019-12-25] MEDS ORDERED: ONDANSETRON 4 MG/2 ML VIAL IVP ONE (07:54)
[2019-12-25 07:57] VITALS: TEMP 97.1
[2019-12-25] MEDS ORDERED: PROPOFOL 10 MG/ML 20 ML VIAL IV ONE (08:20)
[2019-12-25] MEDS ORDERED: LIDOCAINE 1% INJ 10MG/ML (20 ML MDV) ONE (08:20)
--- NOTE | 2019-12-25 08:36 | P.PCN ---
Date of Procedure: 12/25/19 Procedure(s) Performed: BRIEF HISTORY: Patient is a 63-year-old, pleasant, white female scheduled for an upper endoscopy as a part of evaluation of intermittent dysphagia to solids for the last 6 months duration. She has these symptoms once or twice a week. Has been on Prilosec 20 mg daily. Recent barium esophagogram showed pooling of the barium in the midesophagus. she is hence scheduled for an upper endoscopy with possible dilation. PROCEDURE PERFORMED: Esophagogastroduodenoscopy with biopsy . PREOPERATIVE DIAGNOSIS: []Intermittent dysphagia to solids for the last 6 months duration IV sedation per anesthesia. PROCEDURE: After informed consent was obtained, the patient was brought into the endoscopy unit. IV sedation was administered by Anesthesia under continuous monitoring. Initially the Olympus GIF-140 video endoscope was inserted into the mouth. Esophagus intubated without any difficulty. It was gradually advanced into the stomach and duodenum and carefully examined. The bulb and the second part of the duodenum appeared normal. The scope at this time was withdrawn to the stomach, adequately insufflated with air, and upon careful examination, mucosa of the antrum had erosive gastritis and a 5 mm superficial antral ulcer that was biopsied. The body, cardia and the fundus appeared normal. The scope was then withdrawn into the esophagus. The GE junction was located at 34 cm from the incisors. The esophagus appeared normal. there was a superficial diverticulum noted in the mid esophagus at about 30 cm from the incisors or esophageal dysmotility. No obvious esophageal stricture identified. There were no erosions or ulcerations seen, biopsies were done from the distal and mid esophagus and the patient tolerated the procedure well. IMPRESSION: 1. Small mid esophageal diverticulum but no evidence of esophagitis or esophageal stricture 2. 5 mm superficial antral ulcer with erosive gastritis 3 Small sliding Hiatal hernia RECOMMENDATIONS: The findings of this examination were discussed with the patient as well as her family. She was advised to follow with the biopsy results. She will continue with Prilosec 20 mg daily and she'll be seen in office in 3-4 weeks. If she still has persistent dysphagia and consider an esophageal manometry to evaluate for esophageal dysmotility causing her symptoms.
[2019-12-25 08:41] VITALS: RESP 16
[2019-12-25 09:10] VITALS: BP 146/88; PULSE 65
== END 2019-12-25 09:45 | disposition home or self-care (01) ==
LOC: ORWHC2ENDO 07:26
PROVIDERS: ATTEND Internal Medicine Gastroenterology
DX: K25.3 Acute gastric ulcer without hemorrhage or perforation (principal); Q39.6 Congenital diverticulum of esophagus; K21.9 Gastro-esophageal reflux disease without esophagitis; K31.9 Disease of stomach and duodenum, unspecified; R13.10 Dysphagia, unspecified; K44.9 Diaphragmatic hernia without obstruction or gangrene; I10 Essential (primary) hypertension; E78.5 Hyperlipidemia, unspecified; G35 Multiple sclerosis; G20 Parkinson's disease; I69.351 Hemiplegia and hemiparesis following cerebral infarction affecting right dominant side; G43.909 Migraine, unspecified, not intractable, without status migrainosus; Z79.83 Long term (current) use of bisphosphonates; Z79.891 Long term (current) use of opiate analgesic; Z79.02 Long term (current) use of antithrombotics/antiplatelets; Z79.890 Hormone replacement therapy; Z79.899 Other long term (current) drug therapy; Z88.2 Allergy status to sulfonamides; Z88.1 Allergy status to other antibiotic agents; Z88.8 Allergy status to other drugs, medicaments and biological substances
CPT/HCPCS: 88305; 43239; J2405; J2001; J2704

== ENCOUNTER → 2020-01-29 | Outpatient (CLI) | payer BC ==
[2020-01-29 18:38] LABS: African American GFR (CKD) 78.3 (60.0-200.0); Albumin 4.6 g/dL (3.80-4.90); Albumin/Globulin Ratio 2.56 (1.60-3.17); Anion Gap 8.6 mmol/L (4.00-12.00); BUN/Creat Ratio 21.11 Ratio (12.00-20.00); Calcium 9.4 mg/dL (8.7-10.3); Carbon Dioxide 26.4 mmol/L (21.6-31.8); Chol/HDL Ratio 2.5; Globulin 1.8 g/dL (1.6-3.3); Non-African American GFR(CKD) 67.6 (60.0-200.0); Potassium 4.4 mmol/L (3.5-5.5); Total Bilirubin 0.5 mg/dL (0.3-1.2); Total Protein 6.4 g/dL (6.2-8.2)
== END | disposition home or self-care (01) ==
LOC: LABWHC1 09:31
PROVIDERS: ATTEND Internal Medicine Interventional Cardiology
DX: E78.2 Mixed hyperlipidemia (principal)
CPT/HCPCS: 36415; 80053; 80061

== ENCOUNTER → 2020-02-21 | Outpatient (CLI) | payer BC ==
[2020-02-21 11:17] LABS: Basophils % (A) 1 %; Eosinophils # (A) 0.2 k/uL (0-0.7); Eosinophils % (A) 2 %; HCT 43.1 % (34.0-46.0); HGB 13.2 gm/dL (11.4-16.0); Lymphocytes # (A) 1.1 k/uL (1.0-4.8); Lymphocytes % (A) 18 %; MCH 28.5 pg (25.0-35.0); MCHC 30.6 g/dL (31.0-37.0); MCV 92.9 fL (80.0-100.0); Mean Platelet Volume 7.8; Monocytes # (A) 0.4 k/uL (0-1.0); Monocytes % (A) 6 %; Neutrophils # (A) 4.7 k/uL (1.3-7.7); Neutrophils % (A) 73 %; Platelet Count 210 k/uL (150-450); RBC 4.64 m/uL (3.80-5.40); RDW 13.8 % (11.5-15.5); WBC 6.5 k/uL (3.8-10.6)
[2020-02-21 20:15] LABS: HIV 2 AB Non-Reactive (Non-Reactive); HIV AB P24 Non-Reactive (Non-Reactive); HIV P24 AG Non-Reactive (Non-Reactive)
[2020-02-21 20:16] LABS: Hemoglobin A1C 5.4 % (4.0-6.0)
[2020-02-21 20:51] LABS: Hepatitis B Core IgM Non-Reactive (Non-Reactive); Hepatitis B Surface AB- Quant 3.5 mIU/mL; Hepatitis B Surface Antibody Non-Reactive (Non-Reactive); Hepatitis B Surface Antigen Non-Reactive (Non-Reactive)
[2020-02-21 22:38] LABS: African American GFR (CKD) 90.3 (60.0-200.0); Albumin 4.5 g/dL (3.80-4.90); Albumin/Globulin Ratio 2.37 (1.60-3.17); BUN/Creat Ratio 18.75 Ratio (12.00-20.00); Calcium 9.1 mg/dL (8.7-10.3); Globulin 1.9 g/dL (1.6-3.3); Non-African American GFR(CKD) 77.9 (60.0-200.0); Potassium 4.7 mmol/L (3.5-5.5); Total Bilirubin 0.4 mg/dL (0.2-1.2); Total Protein 6.4 g/dL (6.2-8.2)
[2020-02-21 23:55] LABS: Folate, Serum 19.3 ng/mL
[2020-02-24 03:26] LABS: Varicella IgM Antibody 0.27 INDEX (<=0.90)
== END | disposition home or self-care (01) ==
LOC: LABWHC1 09:36
PROVIDERS: ATTEND Psychiatry & Neurology Pain Medicine
DX: G35 Multiple sclerosis (principal); Z51.81 Encounter for therapeutic drug level monitoring
CPT/HCPCS: 36415; 80053; 82306; 82607; 82746; 83036; 84207; 84425; 84439; 84443; 84481; 84591; 85025; 86704; 86705; 86706; 86787; 87340; 87390

== ENCOUNTER → 2020-05-06 | Outpatient (CLI) | payer BC ==
--- NOTE | 2020-05-06 14:39 | XR ---
EXAMINATION TYPE: XR chest 2V DATE OF EXAM: 05/06/2020 COMPARISON: Chest x-ray April 25, 2019 HISTORY: Shortness of breath for 2 months. TECHNIQUE: Frontal and lateral views of the chest are obtained. FINDINGS: There is chronic parenchymal changes bilaterally without suspicious new focal air space opacity, pleural effusion, or pneumothorax seen. The cardiac silhouette size is stab le and mildly enlarged. Cholecystectomy clips are redemonstrated. The osseous structures remain inta ct. IMPRESSION: Mild cardiomegaly and chronic parenchymal changes without acute pulmonary process.
--- NOTE | 2020-05-07 07:50 | ECHOF ---
Referral Reason:R06.09 dyspnea MEASUREMENTS -------- HEIGHT: 147.3 cm WEIGHT: 76.2 kg BP: RVIDd: 2.2 cm (< 3.3) IVSd: 1.2 cm (0.6 - 1.1) LVIDd: 3.4 cm (3.9 - 5.3) LVPWd: 1.7 cm (0.6 - 1.1) IVSs: 1.7 cm LVIDs: 2.1 cm LVPWs: 2.0 cm LAESV Index (A-L): 18.72 ml/m Ao Diam: 2.1 cm (2.0 - 3.7) AV Cusp: 1.6 cm (1.5 - 2.6) LA Diam: 3.5 cm (2.7 - 3.8) MV EXCURSION: 17.918 mm (> 18.000) MV EF SLOPE: 91 mm/s (70 - 150) EPSS: 0.5 cm RAP: 5.00 mmHg RVSP: 42.07 mmHg FINDINGS -------- Sinus rhythm. This was a technically adequate study. The left ventricular size is normal. There is mild concentric left ventricular hypertrophy. Overa ll left ventricular systolic function is normal with, an EF between 55 - 60 %. The right ventricle is normal in size. Normal LA size by volume 22+/-6 ml/m2. The right atrial size is normal. Interatrial and interventricular septum intact. The aortic valve is trileaflet and appears structurally normal. There is no evidence of aortic regu rgitation. There is no evidence of aortic stenosis. No mitral regurgitation. [id number] tricuspid regurgitation present. There is mild to moderate pulmonary hypertension. The right ventricular systolic pressure, as measured by Doppler, is 42.07mmHg. Trace/mild (physiologic) pulmonic regurgitation. The aortic root size is normal. The inferior vena cava is mildly dilated. Echo free space indicative of a pericardial fat pad. There is no pericardial effusion. CONCLUSIONS -------- 1. The left ventricular size is normal. 2. There is mild concentric left ventricular hypertrophy. 3. Overall left ventricular systolic function is normal with, an EF between 55 - 60 %. 4. [id number] tricuspid regurgitation present. 5. There is mild to moderate pulmonary hypertension. 6. The right ventricular systolic pressure, as measured by Doppler, is 42.07mmHg. 7. Trace/mild (physiologic) pulmonic regurgitation. 8. Echo free space indicative of a pericardial fat pad. APPLICATOR SPRAYER: Kasandra Barahona RDCS
== END | disposition home or self-care (01) ==
LOC: RADECHMAIN 14:01
PROVIDERS: ATTEND Family Medicine
DX: I27.20 Pulmonary hypertension, unspecified (principal); I07.1 Rheumatic tricuspid insufficiency; I37.1 Nonrheumatic pulmonary valve insufficiency; J98.4 Other disorders of lung
CPT/HCPCS: 71046; 93306

== ENCOUNTER → 2021-04-13 | Outpatient (CLI) | payer MEDICARE ==
[2021-04-13 14:54] LABS: Basophils # (A) 0.05 X 10*3/uL (0.00-0.10); Basophils % (A) 0.8 %; Eosinophils # (A) 0.14 X 10*3/uL (0.04-0.35); Eosinophils % (A) 2.3 %; HGB 11.7 g/dL (12.0-15.0); Lymphocytes # (A) 1.16 X 10*3/uL (0.90-5.00); Lymphocytes % (A) 19.1 %; MCH 30.2 pg (27.0-32.0); MCHC 31.6 g/dL (32.0-37.0); MCV 95.4 fL (80.0-97.0); Mean Platelet Volume 11.6 fL (9.5-12.2); Monocytes # (A) 0.61 X 10*3/uL (0.20-1.00); Monocytes % (A) 10.1 %; Neutrophils # (A) 4.09 X 10*3/uL (1.80-7.70); Neutrophils % (A) 67.5 %; Platelet Count 180 X 10*3/uL (140-440); RBC 3.88 X 10*6/uL (4.10-5.20); RDW 13.7 % (11.5-14.5); WBC 6.06 X 10*3/uL (4.50-10.00)
[2021-04-13 16:27] LABS: Albumin/Globulin Ratio 2.14 (1.60-3.17); Anion Gap 12.7 mmol/L (10.00-18.00); BUN/Creat Ratio 20.69 Ratio (12.00-20.00); Blood Urea Nitrogen 16.2 mg/dL (9.0-27.0); Calcium 8.6 mg/dL (8.7-10.3); Carbon Dioxide 21.8 mmol/L (20.0-27.5); Folate, Serum 19.4 ng/mL (4.40-31.00); Globulin 1.9 g/dL (1.6-3.3); Non-African American GFR(CKD) 79.4 (60.0-200.0); T4, Free (Free Thyroxine) 1.18 ng/dL (0.800-1.800); Total Bilirubin 0.3 mg/dL (0.30-1.20); Total Protein 5.8 g/dL (6.2-8.2)
[2021-04-13 16:46] LABS: Hepatitis B Core IgM Nonreactive (Nonreactive); Hepatitis B Surface AB- Quant 3.5 mIU/mL; Hepatitis B Surface Antibody Nonreactive (Nonreactive); Hepatitis B Surface Antigen Nonreactive (Nonreactive)
== END | disposition home or self-care (01) ==
LOC: LABWHC1 08:11
PROVIDERS: ATTEND Psychiatry & Neurology Pain Medicine
DX: G35 Multiple sclerosis (principal)
CPT/HCPCS: 36415; 80053; 82306; 82607; 82746; 83036; 84207; 84425; 84439; 84443; 84481; 84591; 85025; 86704; 86705; 86706; 86787; 87340

== ENCOUNTER 2021-06-21 08:58 | Inpatient (IN) | payer BC, MEDICARE ==
[2021-06-21] MEDS ORDERED: SODIUM CHLORIDE 0.9% 1,000 ML IV STA (09:34)
[2021-06-21] MEDS ORDERED: SODIUM CHLORIDE 0.9% 500 ML 500 ML IV STA (09:34)
--- NOTE | 2021-06-21 09:41 | ED ---
General Adult HPI - General Chief complaint: Upper Respiratory Infection Stated complaint: Diarrhea/weak/hearing loss/vomiting Time Seen by Provider: 06/21/21 09:20 Source: patient, RN notes reviewed Mode of arrival: wheelchair Limitations: no limitations - History of Present Illness Initial comments: 65-year-old female presents emergency dept with chief complaint of generalized not feeling well. Patient states last Monday she started with cough congestion diarrhea bodyaches. Patient states that her at home has similar symptoms still has not been to covid 19 Patient states that she does have more weak today, increasing shortness of breath she is advised to be evaluated. Patient hasn't went to chest pain no prior lung disease. Patient states that she cannot keep much better when perfused diarrhea. Patient hasn't went to headache or dizziness. - Related Data Home Medications Medication Instructions Recorded Confirmed Alendronate Sodium [Fosamax] 70 mg PO SA 12/03/13 06/21/21 Clopidogrel [Plavix] 75 mg PO DAILY 12/03/13 06/21/21 Meclizine [Antivert] 25 mg PO DAILY 12/03/13 06/21/21 Omeprazole [PriLOSEC] 20 mg PO DAILY 12/03/13 06/21/21 Levothyroxine Sodium [Synthroid] 125 mcg PO DAILY 11/13/15 06/21/21 Nortriptyline HCl [Pamelor] 10 mg PO HS 03/15/17 06/21/21 Diltiazem HCl [Cartia Xt] 180 mg PO DAILY 07/24/18 06/21/21 HYDROcodone/APAP 7.5-325MG [[place] 1 tab PO BID PRN 07/24/18 06/21/21 7.5-325] Olmesartan [Benicar] 20 mg PO DAILY 07/24/18 06/21/21 Vitamin B Complex 1 cap PO DAILY 07/24/18 06/21/21 Calcium Citrate/Vitamin D3 1 tab PO DAILY 06/21/21 06/21/21 [Citracal + D Maximum Caplet] Carbidopa-Levodopa 25-100 mg 1 tab PO DAILY@1700 06/21/21 06/21/21 [Sinemet 25-100] Carbidopa-Levodopa 25-100 mg 2 tab PO BID@0800,2100 01/31/22 01/31/22 [Sinemet 25-100] Cholecalciferol (Vitamin D3) 125 mcg PO DAILY 06/21/21 06/21/21 [Vitamin D3 (125 MCG = 5,000 IU)] Previous Rx's Medication Instructions Recorded Atorvastatin [Lipitor] 20 mg PO HS tab 03/17/17 Metoprolol Succinate (ER) [Toprol 25 mg PO DAILY #90 tab.er.24h 04/26/19 XL] Allergies Allergy/AdvReac Type Severity Reaction Status Date / Time doxycycline AdvReac upset Verified 06/21/21 10:56 stomach doxycycline hyclate AdvReac Vomiting Verified 06/21/21 10:56 [From Vibra-Tabs] isosorbide [From Imdur] AdvReac MIGRAINE Verified 06/21/21 10:56 HEADACHE Sulfa (Sulfonamide AdvReac Vomiting Verified 06/21/21 10:56 Antibiotics) Review of Systems ROS Statement: Those systems with pertinent positive or pertinent negative responses have been documented in the HPI. ROS Other: All systems not noted in ROS Statement are negative. Past Medical History Past Medical History: CVA/TIA, GERD/Reflux, Hyperlipidemia, Hypertension, Osteoarthritis (OA), Thyroid Disorder Additional Past Medical History / Comment(s): MS, migranes, 6 TIA's- rt side weakness , hiatal hernia, osteoporosis, heart murmr, palpitations,leaky heart valve, parkinsons, constipation, food getting stuck in esophagus, History of Any Multi-Drug Resistant Organisms: None Reported Past Surgical History: Appendectomy, Cholecystectomy, Heart Catheterization, Hysterectomy, Orthopedic Surgery Additional Past Surgical History / Comment(s): left shoulder surgery, left elbow surgery, PARATHYROID SURGERY ,arthroscopy left knee x 4, brooke wrist carpal tunnel, cyst removed from left wrist, "eye surgery to scrape pimples off" Past Anesthesia/Blood Transfusion Reactions: Family History of Problems w/ Anesthesia, Postoperative Nausea & Vomiting (PONV) Additional Past Anesthesia/Blood Transfusion Reaction / Comment(s): father had problem with anesthesia but not sure what Past Psychological History: Anxiety Smoking Status: Never smoker - Past Family History Mother Family Medical History: Cancer, Deep Vein Thrombosis (DVT) Additional Family Medical History / Comment(s): KIDNEY Father Family Medical History: Cancer Additional Family Medical History / Comment(s): PROSTATE General Exam Limitations: no limitations General appearance: alert, in no apparent distress Head exam: Present: atraumatic, normocephalic, normal inspection Eye exam: Present: normal appearance, PERRL, EOMI. Absent: scleral icterus, conjunctival injection, periorbital swelling ENT exam: Present: normal exam, normal oropharynx, mucous membranes moist Neck exam: Present: normal inspection, full ROM. Absent: tenderness, me ningismus, lymphadenopathy Respiratory exam: Present: normal lung sounds bilaterally. Absent: respiratory distress, wheezes, rales, rhonchi, stridor Cardiovascular Exam: Present: regular rate, normal rhythm, normal heart sounds. Absent: systolic murmur, diastolic murmur, rubs, gallop, clicks GI/Abdominal exam: Present: soft, normal bowel sounds. Absent: distended, tenderness, guarding, rebound, rigid Course Vital Signs 06/21/21 06/21/21 06/21/21 09:14 09:24 09:28 Temperature 97.3 F L Pulse Rate 87 Respiratory 16 18 Rate Blood Pressure 73/58 83/56 O2 Sat by Pulse 94 L Oximetry 06/21/21 06/21/21 06/21/21 09:44 11:22 12:48 Temperature 98.2 F Pulse Rate 75 73 74 Respiratory 18 18 Rate Blood Pressure 105/53 97/68 126/45 O2 Sat by Pulse 96 98 97 Oximetry Medical Decision Making - Medical Decision Making 65-year-old female presented from for denies weakness fever cough congestion diarrhea. Patient's found to be acute renal failure did have initial hypot ension related to dehydration patient's renal failure most likely prerenal she was given fluid bolus, started on maintenance fluids. Patient did have elevated troponin though she has no complaints of chest pain currently. This most likely from renal failure. Patient will have trending of heart enzymes, labs, nephrology evaluation patient does have a 20,000 white count with cough congestion was started on antibiotics. - Lab Data Result diagrams: 06/21/21 09:46 06/21/21 09:46 Lab Results 06/21/21 06/21/21 06/21/21 Range/Units 09:46 09:46 09:46 WBC 20.1 H (3.8-10.6) k/uL RBC 4.52 (3.80-5.40) m/uL Hgb 13.8 (11.4-16.0) gm/dL Hct 41.1 (34.0-46.0) % MCV 91.0 (80.0-100.0) fL MCH 30.6 (25.0-35.0) pg MCHC 33.6 (31.0-37.0) g/dL RDW 13.5 (11.5-15.5) % Plt Count 343 (150-450) k/uL MPV 9.4 Neutrophils % 87 % Lymphocytes % 7 % Monocytes % 5 % Eosinophils % 1 % Basophils % 0 % Neutrophils # 17.4 H (1.3-7.7) k/uL Lymphocytes # 1.3 (1.0-4.8) k/uL Monocytes # 1.0 (0-1.0) k/uL Eosinophils # 0.1 (0-0.7) k/uL Basophils # 0.1 (0-0.2) k/uL PT 11.0 (9.0-12.0) sec INR 1.0 (<1.2) APTT 22.3 (22.0-30.0) sec Sodium 127 L (137-145) mmol/L Potassium 4.0 (3.5-5.1) mmol/L Chloride 98 (98-107) mmol/L Carbon Dioxide 19 L (22-30) mmol/L Anion Gap 10 mmol/L BUN 33 H (7-17) mg/dL Creatinine 2.15 H (0.52-1.04) mg/dL Est GFR (CKD-EPI)AfAm 27 (>60 ml/min/1.73 sqM) Est GFR (CKD-EPI)NonAf 24 (>60 ml/min/1.73 sqM) Glucose 114 H (74-99) mg/dL Plasma Lactic Acid [place] (0.7-2.0) mmol/L Calcium 8.3 L (8.4-10.2) mg/dL Magnesium 1.9 (1.6-2.3) mg/dL Total Bilirubin 1.1 (0.2-1.3) mg/dL AST 80 H (14-36) U/L ALT 8 (4-34) U/L Alkaline Phosphatase 131 H (38-126) U/L Troponin I (0.000-0.034) ng/mL Total Protein 6.5 (6.3-8.2) g/dL Albumin 3.4 L (3.5-5.0) g/dL Coronavirus (PCR) (Not Detectd) 06/21/21 06/21/21 06/21/21 Range/Units 09:46 09:46 09:46 WBC (3.8-10.6) k/uL RBC (3.80-5.40) m/uL Hgb (11.4-16.0) gm/dL Hct (34.0-46.0) % MCV (80.0-100.0) fL MCH (25.0-35.0) pg MCHC (31.0-37.0) g/dL RDW (11.5-15.5) % Plt Count (150-450) k/uL MPV Neutrophils % % Lymphocytes % % Monocytes % % Eosinophils % % Basophils % % Neutrophils # (1.3-7.7) k/uL Lymphocytes # (1.0-4.8) k/uL Monocytes # (0-1.0) k/uL Eosinophils # (0-0.7) k/uL Basophils # (0-0.2) k/uL PT (9.0-12.0) sec INR (<1.2) APTT (22.0-30.0) sec Sodium (137-145) mmol/L Potassium (3.5-5.1) mmol/L Chloride (98-107) mmol/L Carbon Dioxide (22-30) mmol/L Anion Gap mmol/L BUN (7-17) mg/dL Creatinine (0.52-1.04) mg/dL Est GFR (CKD-EPI)AfAm (>60 ml/min/1.73 sqM) Est GFR (CKD-EPI)NonAf (>60 ml/min/1.73 sqM) Glucose (74-99) mg/dL Plasma Lactic Acid [place] 1.5 (0.7-2.0) mmol/L Calcium (8.4-10.2) mg/dL Magnesium (1.6-2.3) mg/dL Total Bilirubin (0.2-1.3) mg/dL AST (14-36) U/L ALT (4-34) U/L Alkaline Phosphatase (38-126) U/L Troponin I 0.044 H* (0.000-0.034) ng/mL Total Protein (6.3-8.2) g/dL Albumin (3.5-5.0) g/dL Coronavirus (PCR) Not Detected (Not Detectd) Disposition Clinical Impression: Pneumonia, Acute renal failure, Dehydration, Diarrhea, Hyponatremia Disposition: ADMITTED IP TO THIS [facility] Condition: Poor Referrals: All Greenberg MD [Primary Care Provider] - 1-2 days
[2021-06-21 10:11] LABS: Albumin 3.4 g/dL (3.5-5.0); Calcium 8.3 mg/dL (8.4-10.2); Total Bilirubin 1.1 mg/dL (0.2-1.3); Total Protein 6.5 g/dL (6.3-8.2)
--- NOTE | 2021-06-21 10:18 | XR ---
EXAMINATION TYPE: XR chest 2V DATE OF EXAM: 06/21/2021 COMPARISON: Chest x-ray May 06, 2020 HISTORY: Weakness. TECHNIQUE: Frontal and lateral views of the chest are obtained. FINDINGS: There is chronic parenchymal changes bilaterally without suspicious new focal air space opacity, pleural effusion, or pneumothorax seen. The cardiac silhouette size is stab le and mildly enlarged. Cholecystectomy clips are redemonstrated. The osseous structures remain inta ct. IMPRESSION: Mild cardiomegaly and chronic parenchymal changes without acute pulmonary process. No si gnificant change from prior.
[2021-06-21 10:20] LABS: Magnesium 1.9 mg/dL (1.6-2.3)
[2021-06-21 10:22] LABS: Basophils # (A) 0.1 k/uL (0-0.2); Basophils % (A) 0 %; Eosinophils # (A) 0.1 k/uL (0-0.7); Eosinophils % (A) 1 %; HCT 41.1 % (34.0-46.0); HGB 13.8 gm/dL (11.4-16.0); Lymphocytes # (A) 1.3 k/uL (1.0-4.8); Lymphocytes % (A) 7 %; MCH 30.6 pg (25.0-35.0); MCHC 33.6 g/dL (31.0-37.0); Mean Platelet Volume 9.4; Monocytes % (A) 5 %; Neutrophils # (A) 17.4 k/uL (1.3-7.7); Neutrophils % (A) 87 %; Platelet Count 343 k/uL (150-450); RBC 4.52 m/uL (3.80-5.40); RDW 13.5 % (11.5-15.5); WBC 20.1 k/uL (3.8-10.6)
[2021-06-21 10:36] LABS: Partial Thromboplastin Time 22.3 sec (22.0-30.0)
[2021-06-21] MEDS ORDERED: AZITHROMYCIN 500 MG in SODIUM CHLORIDE 0.9% 250 ML IVPB STA (12:55)
[2021-06-21] MEDS ORDERED: ACETAMINOPHEN TAB 325 MG TAB PO PRN (13:05)
[2021-06-21] MEDS ORDERED: ONDANSETRON 4 MG/2 ML VIAL IVP PRN (13:05)
[2021-06-21] MEDS ORDERED: NALOXONE 0.4 MG/ML 1 ML VIAL IV PRN (13:05)
[2021-06-21 13:08] LABS: Appearance,Urine Cloudy (Clear); Bacteria,Urine Many /hpf; Bilirubin,Urine Negative (Negative); Blood,Urine Negative (Negative); Color,Urine Yellow; Glucose,Urine (UA) Negative (Negative); Hyaline Casts,Urine 63 /lpf (0-2); Ketones,Urine Negative (Negative); Leukocyte Esterase,Urine Large (Negative); Mucus,Urine Occasional /hpf; Nitrite,Urine Negative (Negative); PH, Urine 5.5 (5.0-8.0); Protein,Urine Trace (Negative); RBC,Urine 2 /hpf (0-5); Specific Gravity,Urine 1.008 (1.001-1.035); Squamous Epithelial Cell,Urine 1 /hpf (0-4); Urobilinogen,Urine <2.0 mg/dL (<2.0); WBC,Urine 63 /hpf (0-5)
[2021-06-21] MEDS ORDERED: IPRATROPIUM-ALBUTEROL 3 ML NEB INHALATION STA (13:09)
[2021-06-21] MEDS: SODIUM CHLORIDE 0.9% 1,000 ML IV SCH (13:33)
[2021-06-21] MEDS ORDERED: HYDROcodone/APAP 7.5-325MG 1 EACH TAB PO PRN (16:27)
[2021-06-21] MEDS ORDERED: ASPIRIN 81 MG PO SCH (16:30)
--- NOTE | 2021-06-21 16:30 | P.HPIM ---
History of Present Illness This is a pleasant 65 years old female with past medical history of CVA/TIA, GERD/Reflux, Hyperlipidemia, Hypertension, Osteoarthritis hypothyroidism, Parkinson disease, migraine, hiatal hernia, Patient presents to the hospital because she was not feeling good with her body given up for about one week duration. Her PCP is Dr. Greenberg , director of district office is Dr. Noland for hypothyroidism and she sees Dr. Monahan for Parkinson disease while her system support analyst is Dr. Cantu She's been having decreased appetite and decreased oral intake, eating a little bit for about a week. She was also not taking her medication as supposed to be. Patient has been vomiting a lot started from Monday total last Monday about couple days ago every time about 2-3 times per day. Associated with continuous diarrhea as the patient describes but no abdominal pain. She denies dysuria or urgency. No chest pain however she reports some exertional dyspnea and cough with phlegm of unknown car. No smoking, alcohol or illicit drugs Vitals are stable and she is saturating 97% on room air, as well as she is afebrile. Labs showed leukocytosis with WBCs 20.1. Chest of CBC is unremarkable. INR is normal 1.0. Sodium is low at 127 and creatinine is elevated at 2.1 Glucose 114, alkaline phosphatase 131, liver enzymes were not significantly elevated with ALT 8 and AST 80. Bilirubin is normal 1.1. Troponin is elevated at 0.04. Urine analysis is suspicious of infection with large leukocyte esterase and decreased urine WBC 63. Coronavirus not detected. EKG showing normal sinus rhythm at [address]-T changes Chest x-ray showed mild cardiomegaly with chronic parenchymal changes with no acute process. In the emergency room she receiving normal saline and ceftriaxone and Zithromax. Echocardiogram from 04/2020 showed ejection fraction of 55-60% Review of Systems CONSTITUTIONAL: No fever, no malaise, no fatigue. HEENT: No recent visual problems or hearing problems. Denied any sore throat. CARDIOVASCULAR: No orthopnea, PND, no palpitations, no syncope. PULMONARY: No shortness of breath, no cough, no hemoptysis. GASTROINTESTINAL: No diarrhea, no nausea, no vomiting, no abdominal pain. Normoactive bowel sounds. NEUROLOGICAL: No headaches, no weakness, no numbness. HEMATOLOGICAL: Denies any bleeding or petechiae. GENITOURINARY: Denies any burning micturition, frequency, or urgency. MUSCULOSKELETAL/RHEUMATOLOGICAL: Denies any joint pain, swelling, or any muscle pain. ENDOCRINE: Denies any polyuria or polydipsia. Past Medical History Past Medical History: CVA/TIA, GERD/Reflux, Hyperlipidemia, Hypertension, Osteoarthritis (OA), Thyroid Disorder Additional Past Medical History / Comment(s): MS, migranes, 6 TIA's- rt side weakness , hiatal hernia, osteoporosis, heart murmr, palpitations,leaky heart valve, parkinsons, constipation, food getting stuck in esophagus, History of Any Multi-Drug Resistant Organisms: None Reported Past Surgical History: Appendectomy, Cholecystectomy, Heart Catheterization, Hysterectomy, Orthopedic Surgery Additional Past Surgical History / Comment(s): left shoulder surgery, left elbow surgery, PARATHYROID SURGERY ,arthroscopy left knee x 4, brooke wrist carpal tunnel, cyst removed from left wrist, "eye surgery to scrape pimples off" Past Anesthesia/Blood Transfusion Reactions: Family History of Problems w/ Anesthesia, Postoperative Nausea & Vomiting (PONV) Additional Past Anesthesia/Blood Transfusion Reaction / Comment(s): father had problem with anesthesia but not sure what Past Psychological History: Anxiety Smoking Status: Never smoker - Past Family History Mother Family Medical History: Cancer, Deep Vein Thrombosis (DVT) Additional Family Medical History / Comment(s): KIDNEY Father Family Medical History: Cancer Additional Family Medical History / Comment(s): PROSTATE Medications and Allergies Home Medications Medication Instructions Recorded Confirmed Type Alendronate Sodium [Fosamax] 70 mg PO SA 12/03/13 06/21/21 History Clopidogrel [Plavix] 75 mg PO DAILY 12/03/13 06/21/21 History Meclizine [Antivert] 25 mg PO DAILY 12/03/13 06/21/21 History Omeprazole [PriLOSEC] 20 mg PO DAILY 12/03/13 06/21/21 History Levothyroxine Sodium [Synthroid] 125 mcg PO DAILY 11/13/15 06/21/21 History Nortriptyline HCl [Pamelor] 10 mg PO HS 03/15/17 06/21/21 History Atorvastatin [Lipitor] 20 mg PO HS tab 03/17/17 06/21/21 Rx Diltiazem HCl [Cartia Xt] 180 mg PO DAILY 07/24/18 06/21/21 History HYDROcodone/APAP 7.5-325MG [[place] 1 tab PO BID PRN 07/24/18 06/21/21 History 7.5-325] Olmesartan [Benicar] 20 mg PO DAILY 07/24/18 06/21/21 History Vitamin B Complex 1 cap PO DAILY 07/24/18 06/21/21 History Metoprolol Succinate (ER) [Toprol 25 mg PO DAILY #90 tab.er.24h 04/26/19 06/21/21 Rx XL] Calcium Citrate/Vitamin D3 1 tab PO DAILY 06/21/21 06/21/21 History [Citracal + D Maximum Caplet] Carbidopa-Levodopa 25-100 mg 1 tab PO DAILY@1700 06/21/21 06/21/21 History [Sinemet 25-100] Carbidopa-Levodopa 25-100 mg 2 tab PO BID@0800,2100 06/21/21 06/21/21 History [Sinemet 25-100] Cholecalciferol (Vitamin D3) 125 mcg PO DAILY 06/21/21 06/21/21 History [Vitamin D3 (125 MCG = 5,000 IU)] Allergies Allergy/AdvReac Type Severity Reaction Status Date / Time doxycycline AdvReac upset Verified 06/21/21 10:56 stomach doxycycline hyclate AdvReac Vomiting Verified 06/21/21 10:56 [From Vibra-Tabs] isosorbide [From Imdur] AdvReac MIGRAINE Verified 06/21/21 10:56 HEADACHE Sulfa (Sulfonamide AdvReac Vomiting Verified 06/21/21 10:56 Antibiotics) Physical Exam Vitals: Vital Signs Temp Pulse Resp BP Pulse Ox 06/21/21 13:56 70 06/21/21 13:43 70 06/21/21 12:48 98.2 F 74 18 126/45 97 06/21/21 11:22 73 18 97/68 98 06/21/21 09:44 75 105/53 96 06/21/21 09:28 83/56 06/21/21 09:24 18 06/21/21 09:14 97.3 F L 87 16 73/58 94 L Intake and Output 06/21/21 06/21/21 06/21/21 06:59 14:59 22:59 Other: Weight 79.379 kg -GENERAL: The patient is alert and oriented x3, not in any acute distress. Well developed, well nourished. Generally weak and dehydrated HEENT: Pupils are round and equally reacting to light. EOMI. No scleral icterus. No conjunctival pallor. Normocephalic, atraumatic. No pharyngeal erythema. No thyromegaly. CARDIOVASCULAR: S1 and S2 present. No murmurs, rubs, or gallops. PULMONARY: Chest is clear to auscultation, no wheezing or crackles. ABDOMEN: Soft, nontender, nondistended, normoactive bowel sounds. No palpable organomegaly. MUSCULOSKELETAL: No joint swelling or deformity. EXTREMITIES: No cyanosis, clubbing, or pedal edema. NEUROLOGICAL: Gross neurological examination did not reveal any focal deficits. SKIN: No rashes. No petechiae Results CBC & Chem 7: 06/21/21 09:46 06/21/21 09:46 Labs: Abnormal Lab Results - Last 24 Hours (Table) 06/21/21 06/21/21 06/21/21 Range/Units 09:46 09:46 09:46 WBC 20.1 H (3.8-10.6) k/uL Neutrophils # 17.4 H (1.3-7.7) k/uL Sodium 127 L (137-145) mmol/L Carbon Dioxide 19 L (22-30) mmol/L BUN 33 H (7-17) mg/dL Creatinine 2.15 H (0.52-1.04) mg/dL Glucose 114 H (74-99) mg/dL Calcium 8.3 L (8.4-10.2) mg/dL AST 80 H (14-36) U/L Alkaline Phosphatase 131 H (38-126) U/L Troponin I (0.000-0.034) ng/mL Albumin 3.4 L (3.5-5.0) g/dL Urine Appearance Cloudy H (Clear) Urine Protein Trace H (Negative) Ur Leukocyte Esterase Large H (Negative) Urine WBC 63 H (0-5) /hpf Urine WBC Clumps Few H (None) /hpf Urine Bacteria Many H (None) /hpf Hyaline Casts 63 H (0-2) /lpf Urine Mucus Occasional H (None) /hpf 06/21/21 Range/Units 09:46 WBC (3.8-10.6) k/uL Neutrophils # (1.3-7.7) k/uL Sodium (137-145) mmol/L Carbon Dioxide (22-30) mmol/L BUN (7-17) mg/dL Creatinine (0.52-1.04) mg/dL Glucose (74-99) mg/dL Calcium (8.4-10.2) mg/dL AST (14-36) U/L Alkaline Phosphatase (38-126) U/L Troponin I 0.044 H* (0.000-0.034) ng/mL Albumin (3.5-5.0) g/dL Urine Appearance (Clear) Urine Protein (Negative) Ur Leukocyte Esterase (Negative) Urine WBC (0-5) /hpf Urine WBC Clumps (None) /hpf Urine Bacteria (None) /hpf Hyaline Casts (0-2) /lpf Urine Mucus (None) /hpf Assessment and Plan Assessment: Acute urinary tract infection Acute kidney injury Hypovolemic hyponatremia Hypertension Hyperlipidemia Hypothyroidism History of osteoarthritis History of Parkinson disease History of migraine History of hiatal hernia History of CVA/TIA History of GERD Plan: This is a pleasant 65 years old female who presents with acute UTI and gastroenteritis-like picture with dehydration and hypovolemia Continue with IV hydration Continue with ceftriaxone and follow-up urine culture. Monitor creatinine and electrolytes With the suture troponin, echocardiogram, cardiology consult and continue with Plavix Check for C. diff Labs and medication were reviewed.. Continue same treatment. Continue with symptomatic treatment. Resume home medication. Monitor lytes and vitals. DVT and GI prophylaxis. Further recommendations depends on the clinical course of the patient DVT prophylaxis: Subcutaneous heparin GI Prophylaxis: Pepcid PT/OT: Pending Prognosis is guarded
[2021-06-21] MEDS: IPRATROPIUM-ALBUTEROL 3 ML NEB INHALATION SCH ×3 (16:56→23:32)
[2021-06-21] MEDS: CARBIDOPA-LEVODOPA 25-100 MG 1 EACH TAB PO SCH ×2 (18:17→21:26)
[2021-06-21] MEDS: ATORVASTATIN 20 MG TAB PO SCH (21:26)
[2021-06-21] MEDS: guaiFENesin SYRUP 100MG/5ML 200 MG/10 ML CUP PO PRN (21:26)
[2021-06-21] MEDS: HEPARIN SODIUM,PORCINE/PF 5,000 UNIT/0.5 ML SYRINGE SQ SCH (23:22)
[2021-06-21] MEDS: PANTOPRAZOLE 40 MG/10 ML VIAL IVP SCH (23:22)
[2021-06-22] MEDS: IPRATROPIUM-ALBUTEROL 3 ML NEB INHALATION SCH ×6 (03:47→23:19)
[2021-06-22] MEDS: SODIUM CHLORIDE 0.9% 1,000 ML IV SCH ×3 (04:06→15:46)
[2021-06-22] MEDS: guaiFENesin SYRUP 100MG/5ML 200 MG/10 ML CUP PO PRN ×2 (04:06→21:39)
[2021-06-22] MEDS: LEVOTHYROXINE 125 MCG TAB PO SCH (06:37)
[2021-06-22 08:24] LABS: Basophils # (A) 0.1 k/uL (0-0.2); Basophils % (A) 1 %; Eosinophils # (A) 0.1 k/uL (0-0.7); Eosinophils % (A) 1 %; HGB 12.5 gm/dL (11.4-16.0); Hypochromasia Slight; Lymphocytes # (A) 1.5 k/uL (1.0-4.8); Lymphocytes % (A) 12 %; MCHC 31.1 g/dL (31.0-37.0); Mean Platelet Volume 8.2; Monocytes # (A) 0.5 k/uL (0-1.0); Monocytes % (A) 4 %; Neutrophils # (A) 10.1 k/uL (1.3-7.7); Neutrophils % (A) 82 %; Platelet Count 259 k/uL (150-450); RBC 4.15 m/uL (3.80-5.40); RDW 13.8 % (11.5-15.5); WBC 12.4 k/uL (3.8-10.6)
[2021-06-22 08:33] LABS: Albumin 3.1 g/dL (3.5-5.0); Calcium 7.8 mg/dL (8.4-10.2); Potassium 3.3 mmol/L (3.5-5.1); Total Bilirubin 0.6 mg/dL (0.2-1.3); Total Protein 5.8 g/dL (6.3-8.2)
[2021-06-22 08:38] LABS: MCV 96.4 fL (80.0-100.0)
[2021-06-22] MEDS ORDERED: DILTIAZEM CD 180 MG CAP.ER.24H PO SCH (09:00)
[2021-06-22] MEDS ORDERED: POTASSIUM CHLORIDE ER 20 MEQ TAB.ER PO STA (09:21)
--- NOTE | 2021-06-22 09:23 | P.NPCON ---
History of Present Illness - Reason for Consult acute renal failure - History of Present Illness Reason for consultation: Acute kidney injury History of present illness: Patient is a 65-year-old female seen in renal consultation for acute kidney injury. Creatinine was 2.15 on admission and is down to 1.0 today. Patient presented to the hospital with generalized weakness. She was also having nausea vomiting and diarrhea going on for the last 1 week or so. Her oral intake has been quite poor. She is receiving IV fluids. Good urine output. No hematuria or dysuria. She denies use of nonsteroidals. She was on Benicar outpatient which is currently held. She is on room air. Blood pressure stable. No fever. She tested negative for coronavirus. UA suggestive of UTI. Denies family history of renal disease. No history of diabetes. Vital signs are stable. General: The patient appeared well nourished and normally developed. HEENT: Head exam is unremarkable. LUNGS: Breath sounds decreased. HEART: Rate and Rhythm are regular. ABDOMEN: Soft, no distention. EXTREMITITES: No edema. Past Medical History Past Medical History: CVA/TIA, GERD/Reflux, Hyperlipidemia, Hypertension, Osteoarthritis (OA), Thyroid Disorder Additional Past Medical History / Comment(s): MS, migranes, 6 TIA's- rt side weakness, hiatal hernia, osteoporosis, heart murmr, palpitations, "leaky heart valve", Parkinson's, constipation, food getting stuck in esophagus History of Any Multi-Drug Resistant Organisms: None Reported Past Surgical History: Appendectomy, Cholecystectomy, Heart Catheterization, Hysterectomy, Orthopedic Surgery Additional Past Surgical History / Comment(s): left shoulder surgery, left elbow surgery, parathyroid surgery, arthroscopy left knee x4, b/l wrist carpal tunnel, cyst removed from left wrist, "eye surgery to scrape pimples off" Past Anesthesia/Blood Transfusion Reactions: Family History of Problems w/ Anesthesia, Postoperative Nausea & Vomiting (PONV) Additional Past Anesthesia/Blood Transfusion Reaction / Comment(s): Father had problem with anesthesia but not sure what. Past Psychological History: Anxiety Smoking Status: Never smoker Past Alcohol Use History: None Reported Past Drug Use History: None Reported - Past Family History Mother Family Medical History: Cancer, Deep Vein Thrombosis (DVT) Additional Family Medical History / Comment(s): KIDNEY Father Family Medical History: Cancer Additional Family Medical History / Comment(s): PROSTATE Medications and Allergies Home Medications Medication Instructions Recorded Confirmed Type Alendronate Sodium [Fosamax] 70 mg PO SA 12/03/13 06/21/21 History Clopidogrel [Plavix] 75 mg PO DAILY 12/03/13 06/21/21 History Meclizine [Antivert] 25 mg PO DAILY 12/03/13 06/21/21 History Omeprazole [PriLOSEC] 20 mg PO DAILY 12/03/13 06/21/21 History Levothyroxine Sodium [Synthroid] 125 mcg PO DAILY 11/13/15 06/21/21 History Nortriptyline HCl [Pamelor] 10 mg PO HS 03/15/17 06/21/21 History Atorvastatin [Lipitor] 20 mg PO HS tab 03/17/17 06/21/21 Rx Diltiazem HCl [Cartia Xt] 180 mg PO DAILY 07/24/18 06/21/21 History HYDROcodone/APAP 7.5-325MG [[place] 1 tab PO BID PRN 07/24/18 06/21/21 History 7.5-325] Olmesartan [Benicar] 20 mg PO DAILY 07/24/18 06/21/21 History Vitamin B Complex 1 cap PO DAILY 07/24/18 06/21/21 History Metoprolol Succinate (ER) [Toprol 25 mg PO DAILY #90 tab.er.24h 04/26/19 06/21/21 Rx XL] Calcium Citrate/Vitamin D3 1 tab PO DAILY 06/21/21 06/21/21 History [Citracal + D Maximum Caplet] Carbidopa-Levodopa 25-100 mg 1 tab PO DAILY@1700 06/21/21 06/21/21 History [Sinemet 25-100] Carbidopa-Levodopa 25-100 mg 2 tab PO BID@0800,2100 06/21/21 06/21/21 History [Sinemet 25-100] Cholecalciferol (Vitamin D3) 125 mcg PO DAILY 06/21/21 06/21/21 History [Vitamin D3 (125 MCG = 5,000 IU)] Allergies Allergy/AdvReac Type Severity Reaction Status Date / Time doxycycline AdvReac upset Verified 06/21/21 10:56 stomach doxycycline hyclate AdvReac Vomiting Verified 06/21/21 10:56 [From Vibra-Tabs] isosorbide [From Imdur] AdvReac MIGRAINE Verified 06/21/21 10:56 HEADACHE Sulfa (Sulfonamide AdvReac Vomiting Verified 06/21/21 10:56 Antibiotics) Physical Exam Vitals: Vital Signs Temp Pulse Pulse Resp BP BP BP 06/22/21 08:17 98.0 F 69 17 118/67 06/22/21 07:44 98.4 F 97 18 112/78 06/22/21 04:00 98.2 F 95 18 113/85 06/22/21 03:57 96 06/22/21 03:47 100 06/22/21 00:00 98.3 F 103 H 18 131/73 06/21/21 23:42 96 06/21/21 23:32 96 06/21/21 21:00 98.2 F 110 H 18 110/72 06/21/21 19:57 90 06/21/21 19:46 90 06/21/21 19:33 84 18 95/54 06/21/21 18:14 98.5 F 88 18 95/54 06/21/21 17:07 87 06/21/21 16:56 80 06/21/21 13:56 70 06/21/21 13:43 70 06/21/21 12:48 98.2 F 74 18 126/45 06/21/21 11:22 73 18 97/68 06/21/21 09:44 75 105/53 06/21/21 09:28 83/56 06/21/21 09:24 18 Pulse Ox 06/22/21 08:17 95 06/22/21 07:44 97 06/22/21 04:00 95 06/22/21 03:57 06/22/21 03:47 06/22/21 00:00 96 06/21/21 23:42 06/21/21 23:32 06/21/21 21:00 95 06/21/21 19:57 06/21/21 19:46 06/21/21 19:33 96 06/21/21 18:14 95 06/21/21 17:07 06/21/21 16:56 06/21/21 13:56 06/21/21 13:43 06/21/21 12:48 97 06/21/21 11:22 98 06/21/21 09:44 96 06/21/21 09:28 06/21/21 09:24 Intake and Output 06/21/21 06/22/21 06/22/21 22:59 06:59 14:59 Intake Total 490 480 Balance 490 480 Intake: IV 10 Invasive Line 1 10 Oral 480 480 Other: Voiding Method Toilet Toilet # Voids 1 1 Weight 79.379 kg Results - Lab Results Most recent lab results Calcium 7.8 mg/dL (8.4-10.2) L 06/22/21 07:56 Magnesium 1.9 mg/dL (1.6-2.3) 06/21/21 09:46 06/22/21 07:56 06/22/21 07:56 Assessment and Plan Plan: Assessment: 1. Acute kidney injury mostly prerenal secondary to hypovolemia from vomiting and diarrhea. Improved. Creatinine was 2.15 on admission and is 1.0 today. 2. Hypokalemia from saline diuresis and poor intake. 3. UTI on antibiotics. 4. Benign hypertension. Controlled. 5. Hypovolemic hyponatremia improved with IV hydration. 6. Metabolic acidosis secondary to acute kidney injury, GI losses and IV fluids. Plan: Maintain IV fluids. Replace potassium. Avoid nephrotoxins. Follow-up echocardiogram. Repeat labs in the morning. Thank you for the consultation. I will continue to follow patient with you during her hospital stay.
--- NOTE | 2021-06-22 10:03 | P.CRDCN ---
History of Present Illness Consult date: 06/22/21 History of present illness: HISTORY OF PRESENT ILLNESS: This is a 65-year-old female with a past medical history significant for hypertension, hyperlipidemia, Parkinson's disease, and multiple sclerosis. Patient follows in the office with Dr. Cantu. We have been asked to see the patient in consultation for abnormal troponin. Patient examined at the bedside. Patient presented to the hospital with a chief complaint of not feeling well. Patient states over the past 6-7 days she has had generalized malaise. She reports generalized weakness. She states she has been having nausea, vomiting and diarrhea. She reports she has not been able to keep anything down. She reports mild shortness of breath with a cough and congestion. She denies chest pain or pressure. She denies any fever at home. EKG reveals sinus mechanism with nonspecific ST-T wave changes Chest xray mild cardiomegaly and chronic parenchymal changes without acute pulmo nary process. No significant change from prior. Laboratory data: WBC 20.1. Hemoglobin 13.8. Platelet count 373. Sodium 127. Potassium 4.0. B UN 33. Creatinine 2.15. Troponin 0.044. 0.019. 0.018. Current home cardiac medications include Benicar 20 mg daily, metoprolol succinate 25 mg daily, Cardizem 180 mg daily, Plavix 75 mg daily, Lipitor 20 mg daily Most recent echocardiogram obtained in April 2020 revealed ejection fraction 55-60%, mild to moderate tricuspid regurgitation, mild to moderate pulmonary hypertension Cardiac catheterization history: 2018 revealing minimal coronary artery disease REVIEW OF SYSTEMS: At the time of my exam: CONSTITUTIONAL: Denies fever or chills. HEENT: Denies blurred vision, vision changes, or eye pain. Denies hemoptysis CARDIOVASCULAR: Denies chest pain. Denies orthopnea. Denies PND. Denies palpitations RESPIRATORY: Denies shortness of breath. GASTROINTESTINAL: Denies abdominal pain. Denies nausea or vomiting. HEMATOLOGIC: Denies bleeding disorders. GENITOURINARY: Denies any blood in urine. SKIN: Denies pruitis. Denies rash. PHYSICAL EXAM: VITAL SIGNS: Reviewed. GENERAL: Well-developed in no acute distress. HEENT: Head is normocephalic. Pupils are equal, round. Sclerae anicteric. Mucous membranes of the mouth are moist. Neck supple. No JVD or thyromegaly LUNGS: Respirations even and unlabored. Lungs essentially clear to auscultation bilaterally. HEART: Regular rate and rhythm. S1 and S2 heard. Systolic murmur noted. ABDOMEN: Soft. Nondistended. Nontender. EXTREMITIES: Normal range of motion. No clubbing or cyanosis. Peripheral pulses intact. No lower extremity edema NEUROLOGIC: Awake and alert. Oriented x 3. ASSESSMENT: Generalized weakness Nausea, vomiting, diarrhea Acute renal failure Abnormal troponin, secondary to TATIANA, no evidence of ACS Leukocytosis Abnormal UA, possible UTI Hyponatremia Hypokalemia Hypertension Multiple sclerosis Parkinson's disease PLAN: An acute coronary event has been ruled out Obtain 2-D echo to assess cardiac structure and function Resume home cardiac medications Continue to hold Olmesartan secondary to TATIANA Continue IVF Nephrology following Further recommendations pending patient course Nurse practitioner note has been reviewed by physician. Signing provider agrees with the documented findings, assessment, and plan of care. Past Medical History Past Medical History: CVA/TIA, GERD/Reflux, Hyperlipidemia, Hypertension, Osteoarthritis (OA), Thyroid Disorder Additional Past Medical History / Comment(s): MS, migranes, 6 TIA's- rt side weakness, hiatal hernia, osteoporosis, heart murmr, palpitations, "leaky heart valve", Parkinson's, constipation, food getting stuck in esophagus History of Any Multi-Drug Resistant Organisms: None Reported Past Surgical History: Appendectomy, Cholecystectomy, Heart Catheterization, Hysterectomy, Orthopedic Surgery Additional Past Surgical History / Comment(s): left shoulder surgery, left elbow surgery, parathyroid surgery, arthroscopy left knee x4, b/l wrist carpal tunnel, cyst removed from left wrist, "eye surgery to scrape pimples off" Past Anesthesia/Blood Transfusion Reactions: Family History of Problems w/ Anesthesia, Postoperative Nausea & Vomiting (PONV) Additional Past Anesthesia/Blood Transfusion Reaction / Comment(s): Father had problem with anesthesia but not sure what. Past Psychological History: Anxiety Smoking Status: Never smoker Past Alcohol Use History: None Reported Past Drug Use History: None Reported - Past Family History Mother Family Medical History: Cancer, Deep Vein Thrombosis (DVT) Additional Family Medical History / Comment(s): KIDNEY Father Family Medical History: Cancer Additional Family Medical History / Comment(s): PROSTATE Medications and Allergies Home Medications Medication Instructions Recorded Confirmed Type Alendronate Sodium [Fosamax] 70 mg PO SA 12/03/13 06/21/21 History Clopidogrel [Plavix] 75 mg PO DAILY 12/03/13 06/21/21 History Meclizine [Antivert] 25 mg PO DAILY 12/03/13 06/21/21 History Omeprazole [PriLOSEC] 20 mg PO DAILY 12/03/13 06/21/21 History Levothyroxine Sodium [Synthroid] 125 mcg PO DAILY 11/13/15 06/21/21 History Nortriptyline HCl [Pamelor] 10 mg PO HS 03/15/17 06/21/21 History Atorvastatin [Lipitor] 20 mg PO HS tab 03/17/17 06/21/21 Rx Diltiazem HCl [Cartia Xt] 180 mg PO DAILY 07/24/18 06/21/21 History HYDROcodone/APAP 7.5-325MG [[place] 1 tab PO BID PRN 07/24/18 06/21/21 History 7.5-325] Olmesartan [Benicar] 20 mg PO DAILY 07/24/18 06/21/21 History Vitamin B Complex 1 cap PO DAILY 07/24/18 06/21/21 History Metoprolol Succinate (ER) [Toprol 25 mg PO DAILY #90 tab.er.24h 04/26/19 06/21/21 Rx XL] Calcium Citrate/Vitamin D3 1 tab PO DAILY 06/21/21 06/21/21 History [Citracal + D Maximum Caplet] Carbidopa-Levodopa 25-100 mg 1 tab PO DAILY@1700 06/21/21 06/21/21 History [Sinemet 25-100] Carbidopa-Levodopa 25-100 mg 2 tab PO BID@0800,2100 06/21/21 06/21/21 History [Sinemet 25-100] Cholecalciferol (Vitamin D3) 125 mcg PO DAILY 06/21/21 06/21/21 History [Vitamin D3 (125 MCG = 5,000 IU)] Allergies Allergy/AdvReac Type Severity Reaction Status Date / Time doxycycline AdvReac upset Verified 06/21/21 10:56 stomach doxycycline hyclate AdvReac Vomiting Verified 06/21/21 10:56 [From Vibra-Tabs] isosorbide [From Imdur] AdvReac MIGRAINE Verified 06/21/21 10:56 HEADACHE Sulfa (Sulfonamide AdvReac Vomiting Verified 06/21/21 10:56 Antibiotics) Physical Exam Vitals: Vital Signs Temp Pulse Pulse Resp BP BP BP 06/22/21 09:17 18 06/22/21 08:17 98.0 F 69 17 118/67 06/22/21 07:44 98.4 F 97 18 112/78 06/22/21 04:00 98.2 F 95 18 113/85 06/22/21 03:57 96 06/22/21 03:47 100 06/22/21 00:00 98.3 F 103 H 18 131/73 06/21/21 23:42 96 06/21/21 23:32 96 06/21/21 21:00 98.2 F 110 H 18 110/72 06/21/21 19:57 90 06/21/21 19:46 90 06/21/21 19:33 84 18 95/54 06/21/21 18:14 98.5 F 88 18 95/54 06/21/21 17:07 87 06/21/21 16:56 80 06/21/21 13:56 70 06/21/21 13:43 70 06/21/21 12:48 98.2 F 74 18 126/45 06/21/21 11:22 73 18 97/68 Pulse Ox 06/22/21 09:17 06/22/21 08:17 95 06/22/21 07:44 97 06/22/21 04:00 95 06/22/21 03:57 06/22/21 03:47 06/22/21 00:00 96 06/21/21 23:42 06/21/21 23:32 06/21/21 21:00 95 06/21/21 19:57 06/21/21 19:46 06/21/21 19:33 96 06/21/21 18:14 95 06/21/21 17:07 06/21/21 16:56 06/21/21 13:56 06/21/21 13:43 06/21/21 12:48 97 06/21/21 11:22 98 Intake and Output 06/21/21 06/22/21 06/22/21 22:59 06:59 14:59 Intake Total 490 480 Balance 490 480 Intake: IV 10 Invasive Line 1 10 Oral 480 480 Other: Voiding Method Toilet Toilet Toilet # Voids 1 1 Weight 79.379 kg Results 06/22/21 07:56 06/22/21 07:56 Cardiac Enzymes 06/21/21 06/21/21 06/21/21 Range/Units 09:46 09:46 17:12 AST 80 H (14-36) U/L Troponin I 0.044 H* 0.019 (0.000-0.034) ng/mL 06/21/21 06/22/21 Range/Units 21:35 07:56 AST 69 H (14-36) U/L Troponin I 0.018 (0.000-0.034) ng/mL Coagulation 06/21/21 Range/Units 09:46 PT 11.0 (9.0-12.0) sec APTT 22.3 (22.0-30.0) sec CBC 06/21/21 06/22/21 Range/Units 09:46 07:56 WBC 20.1 H 12.4 H (3.8-10.6) k/uL RBC 4.52 4.15 (3.80-5.40) m/uL Hgb 13.8 12.5 (11.4-16.0) gm/dL Hct 41.1 40.0 (34.0-46.0) % Plt Count 343 259 (150-450) k/uL Comprehensive Metabolic Panel 06/21/21 06/22/21 Range/Units 09:46 07:56 Sodium 127 L 134 L (137-145) mmol/L Potassium 4.0 3.3 L (3.5-5.1) mmol/L Chloride 98 106 (98-107) mmol/L Carbon Dioxide 19 L 20 L (22-30) mmol/L BUN 33 H 25 H (7-17) mg/dL Creatinine 2.15 H 1.00 (0.52-1.04) mg/dL Glucose 114 H 120 H (74-99) mg/dL Calcium 8.3 L 7.8 L (8.4-10.2) mg/dL AST 80 H 69 H (14-36) U/L ALT 8 13 (4-34) U/L Alkaline Phosphatase 131 H 122 (38-126) U/L Total Protein 6.5 5.8 L (6.3-8.2) g/dL Albumin 3.4 L 3.1 L (3.5-5.0) g/dL Current Medications Generic Name Dose Route Start Last Admin Trade Name Freq PRN Reason Stop Dose Admin Acetaminophen 650 mg 06/21/21 13:05 Acetaminophen Tab 325 Mg Tab PO Q6HR PRN Mild Pain or Fever > 100.5 Hydrocodone Bitart/Acetaminophen 1 each 06/21/21 16:27 Hydrocodone/Apap 7.5-325mg 1 Each Tab PO BID PRN Pain Albuterol/Ipratropium 3 ml 06/21/21 16:00 06/22/21 08:45 Ipratropium-Albuterol 3 Ml Neb INHALATION Not Given RT-Q4H RONDA Atorvastatin Calcium 20 mg 06/21/21 21:00 06/21/21 21:26 Atorvastatin 20 Mg Tab PO 20 mg HS RONDA Administration Calcium Carbonate 1 each 06/22/21 09:00 Calcium Carb-Vit D 500 Mg-5 Mcg Tab PO DAILY RONDA Carbidopa/Levodopa 1 each 06/21/21 17:00 06/21/21 18:17 Carbidopa-Levodopa 25-100 Mg 1 Each Tab PO 1 each DAILY@1700 RONDA Administration Carbidopa/Levodopa 2 each 06/21/21 21:00 06/21/21 21:26 Carbidopa-Levodopa 25-100 Mg 1 Each Tab PO 2 each BID@0800,2100 RONDA Administration Cholecalciferol 125 mcg 06/22/21 09:00 Cholecalciferol 125 Mcg (5000 Iu) Tablet PO DAILY RONDA Clopidogrel Bisulfate 75 mg 06/22/21 09:00 Clopidogrel 75 Mg Tab PO DAILY RONDA Guaifenesin 200 mg 06/21/21 21:04 06/22/21 04:06 Guaifenesin Syrup 100mg/5ml 200 Mg/10 Ml Cup PO 200 mg Q6HR PRN Administration Cough Heparin Sodium (Porcine) 5,000 unit 06/21/21 22:00 06/21/21 23:22 Heparin Sodium,Porcine/Pf 5,000 Unit/0.5 Ml Syringe SQ 5,000 unit Q12HR RONDA Administration Sodium Chloride 1,000 mls @ 100 mls/hr 06/21/21 13:15 06/22/21 04:06 Saline 0.9% IV 100 mls/hr .Q10H RONDA Administration Ceftriaxone Sodium 1 gm/ 50 mls @ 100 mls/hr 06/22/21 09:00 Sodium Chloride IVPB Q24HR [facility] Levothyroxine Sodium 125 mcg 06/22/21 06:30 06/22/21 06:37 Levothyroxine 125 Mcg Tab PO 125 mcg DAILY@0630 RONDA Administration Meclizine HCl 25 mg 06/22/21 09:00 Meclizine 25 Mg Tab PO DAILY RONDA Metoprolol Succinate 25 mg 06/22/21 10:00 Metoprolol Succinate (Er) 25 Mg Tab.Er.24h PO DAILY RONDA Naloxone HCl 0.2 mg 06/21/21 13:05 Naloxone 0.4 Mg/Ml 1 Ml Vial IV Q2M PRN Opioid Reversal Ondansetron HCl 4 mg 06/21/21 13:05 Ondansetron 4 Mg/2 Ml Vial IVP Q8HR PRN Nausea And Vomiting Pantoprazole Sodium 40 mg 06/21/21 22:00 06/21/21 23:22 Pantoprazole 40 Mg/10 Ml Vial IVP 40 mg DAILY RONDA Administration Intake and Output 06/21/21 06/22/21 06/22/21 22:59 06:59 14:59 Intake Total 490 480 Balance 490 480 Intake: IV 10 Invasive Line 1 10 Oral 480 480 Other: Voiding Method Toilet Toilet Toilet # Voids 1 1 Weight 79.379 kg 06/22/21 07:56 06/22/21 07:56
[2021-06-22] MEDS: CARBIDOPA-LEVODOPA 25-100 MG 1 EACH TAB PO SCH ×3 (10:49→21:39)
[2021-06-22] MEDS: CALCIUM CARB-VIT D 500 MG-5 MCG TAB PO SCH (10:50)
[2021-06-22] MEDS: CHOLECALCIFEROL 125 MCG (5000 IU) TABLET PO SCH (10:53)
[2021-06-22] MEDS: HEPARIN SODIUM,PORCINE/PF 5,000 UNIT/0.5 ML SYRINGE SQ SCH ×2 (10:54→21:38)
[2021-06-22] MEDS: PANTOPRAZOLE 40 MG/10 ML VIAL IVP SCH (10:55)
[2021-06-22] MEDS: MECLIZINE 25 MG TAB PO SCH (10:55)
[2021-06-22] MEDS: CLOPIDOGREL 75 MG TAB PO SCH (10:59)
--- NOTE | 2021-06-22 11:10 | ECHOF ---
Referral Reason:Rule out heart disease MEASUREMENTS -------- HEIGHT: 152.4 cm WEIGHT: 79.4 kg BP: RVIDd: 2.8 cm (< 3.3) IVSd: 1.2 cm (0.6 - 1.1) LVIDd: 3.4 cm (3.9 - 5.3) LVPWd: 1.3 cm (0.6 - 1.1) IVSs: 1.6 cm LVIDs: 2.4 cm LVPWs: 1.7 cm LA Diam: 3.5 cm (2.7 - 3.8) MV EXCURSION: 19.197 mm (> 18.000) MV EF SLOPE: 69 mm/s (70 - 150) EPSS: 0.4 cm MV E Denilson: 0.36 m/s MV DecT: 284 ms MV A Denilson: 0.68 m/s MV E/A Ratio: 0.53 RAP: 5.00 mmHg RVSP: 36.04 mmHg FINDINGS -------- Sinus rhythm. This was a techncally difficult study with suboptimal views, , Lumason utilized for enhancement of im ages. The left ventricular size is normal. There is mild concentric left ventricular hypertrophy. Overa ll left ventricular systolic function is low-normal with, an EF between 50 - 55 %. The right ventricle is normal in size. The left atrial size is normal. The right atrial size is normal. Lumason was used unable to detect. There is mild aortic valve sclerosis. There is no evidence of aortic regurgitation. Mild mitral annular calcification present. Mild mitral regurgitation is present. Mild tricuspid regurgitation present. Right ventricular systolic pressure is normal at < 35 mmHg. The pulmonic valve was not well visualized. Echo free space represents a pericardial fat pad. CONCLUSIONS -------- 1. This was a techncally difficult study with suboptimal views, , Lumason utilized for enhancement of images. 2. The left ventricular size is normal. 3. There is mild concentric left ventricular hypertrophy. 4. Overall left ventricular systolic function is low-normal with, an EF between 50 - 55 %. 5. The right ventricle is normal in size. 6. The left atrial size is normal. 7. The right atrial size is normal. 8. Lumason was used unable to detect. 9. There is mild aortic valve sclerosis. 10. Mild mitral annular calcification present. 11. Mild mitral regurgitation is present. 12. Mild tricuspid regurgitation present. 13. The pulmonic valve was not well visualized. 14. Echo free space represents a pericardial fat pad. [facility] [employer] MANAGER: Krystyna Gibbs RDCS
[2021-06-22] MEDS: METOPROLOL SUCCINATE (ER) 25 MG TAB.ER.24H PO SCH (12:07)
[2021-06-22] MEDS: DILTIAZEM CD 180 MG CAP.ER.24H PO SCH (12:07)
[2021-06-22] MEDS: ATORVASTATIN 20 MG TAB PO SCH (21:39)
--- NOTE | 2021-06-22 21:59 | P.PN ---
Subjective This is a pleasant 65 years old female with past medical history of CVA/TIA, GERD/Reflux, Hyperlipidemia, Hypertension, Osteoarthritis hypothyroidism, Parkinson disease, migraine, hiatal hernia, Patient presents to the hospital because she was not feeling good with her body given up for about one week duration. Her PCP is Dr. Greenberg , garage hand is Dr. Noland for hypothyroidism and she sees Dr. Monahan for Parkinson disease while her aircraft body repairer is Dr. Cantu She's been having decreased appetite and decreased oral intake, eating a little bit for about a week. She was also not taking her medication as supposed to be. Patient has been vomiting a lot started from Monday total last Monday about couple days ago every time about 2-3 times per day. Associated with continuous diarrhea as the patient describes but no abdominal pain. She denies dysuria or urgency. No chest pain however she reports some exertional dyspnea and cough with phlegm of unknown car. No smoking, alcohol or illicit drugs Vitals are stable and she is saturating 97% on room air, as well as she is afebrile. Labs showed leukocytosis with WBCs 20.1. Chest of CBC is unremarkable. INR is normal 1.0. Sodium is low at 127 and creatinine is elevated at 2.1 Glucose 114, alkaline phosphatase 131, liver enzymes were not significantly elevated with ALT 8 and AST 80. Bilirubin is normal 1.1. Troponin is elevated at 0.04. Urine analysis is suspicious of infection with large leukocyte esterase and decreased urine WBC 63. Coronavirus not detected. EKG showing normal sinus rhythm at [address]-T changes Chest x-ray showed mild cardiomegaly with chronic parenchymal changes with no acute process. In the emergency room she receiving normal saline and ceftriaxone and Zithromax. Echocardiogram from 04/2020 showed ejection fraction of 55-60% 06/22/2021 Patient with acute gastroenteritis and severe dehydration leading to acute kidney injury associated with urinary tract infection improved significantly today with IV fluids and antibiotics and her blood pressure improved at 106/66 . She feels better. No abdominal pain. Advanced diet as tolerated. Creatinine back to normal. Leukocytosis improving too 12th case. Urine culture is growing gram-negative bacilli. Lighter Captain found elevated troponin secondary to acute kidney injury. Patient with no chest pain. Ejection fraction 50-55%. Currently on ceftriaxone, normal saline or to 75 mL/h, Cardizem 180 mg and metoprolol 25 mg as well as Plavix. C. diff is negative Objective - Vital Signs Vital signs: Vital Signs Temp 98.0 F 06/22/21 08:17 Pulse 69 06/22/21 08:17 Resp 18 06/22/21 09:17 BP 118/67 06/22/21 08:17 Pulse Ox 95 06/22/21 08:17 Intake & Output 06/21/21 06/22/21 06/22/21 18:59 06:59 18:59 Intake Total 490 480 Balance 490 480 Weight 79.379 kg 79.379 kg Intake: IV 10 Invasive Line 1 10 Oral 480 480 Other: Voiding Method Toilet Toilet # Voids 1 - Exam GENERAL: The patient is alert and oriented x3, not in any acute distress. Well developed, well nourished. HEENT: Pupils are round and equally reacting to light. EOMI. No scleral icterus. No conjunctival pallor. Normocephalic, atraumatic. No pharyngeal erythema. No thyromegaly. CARDIOVASCULAR: S1 and S2 present. No murmurs, rubs, or gallops. PULMONARY: Chest is clear to auscultation, no wheezing or crackles. ABDOMEN: Soft, nontender, nondistended, normoactive bowel sounds. No palpable organomegaly. MUSCULOSKELETAL: No joint swelling or deformity. EXTREMITIES: No cyanosis, clubbing, or pedal edema. NEUROLOGICAL: Gross neurological examination did not reveal any focal deficits. SKIN: No rashes. no petechiae. - Labs CBC & Chem 7: 06/22/21 07:56 06/22/21 07:56 Labs: Abnormal Lab Results - Last 24 Hours (Table) 06/21/21 06/21/21 06/21/21 Range/Units 09:46 09:46 09:46 WBC (3.8-10.6) k/uL Neutrophils # (1.3-7.7) k/uL Sodium (137-145) mmol/L Potassium (3.5-5.1) mmol/L Carbon Dioxide (22-30) mmol/L BUN (7-17) mg/dL Glucose (74-99) mg/dL Calcium (8.4-10.2) mg/dL AST (14-36) U/L Troponin I 0.044 H* (0.000-0.034) ng/mL Total Protein (6.3-8.2) g/dL Albumin (3.5-5.0) g/dL Procalcitonin 0.17 H (0.02-0.09) ng/mL Urine Appearance Cloudy H (Clear) Urine Protein Trace H (Negative) Ur Leukocyte Esterase Large H (Negative) Urine WBC 63 H (0-5) /hpf Urine WBC Clumps Few H (None) /hpf Urine Bacteria Many H (None) /hpf Hyaline Casts 63 H (0-2) /lpf Urine Mucus Occasional H (None) /hpf 06/22/21 06/22/21 Range/Units 07:56 07:56 WBC 12.4 H (3.8-10.6) k/uL Neutrophils # 10.1 H (1.3-7.7) k/uL Sodium 134 L (137-145) mmol/L Potassium 3.3 L (3.5-5.1) mmol/L Carbon Dioxide 20 L (22-30) mmol/L BUN 25 H (7-17) mg/dL Glucose 120 H (74-99) mg/dL Calcium 7.8 L (8.4-10.2) mg/dL AST 69 H (14-36) U/L Troponin I (0.000-0.034) ng/mL Total Protein 5.8 L (6.3-8.2) g/dL Albumin 3.1 L (3.5-5.0) g/dL Procalcitonin (0.02-0.09) ng/mL Urine Appearance (Clear) Urine Protein (Negative) Ur Leukocyte Esterase (Negative) Urine WBC (0-5) /hpf Urine WBC Clumps (None) /hpf Urine Bacteria (None) /hpf Hyaline Casts (0-2) /lpf Urine Mucus (None) /hpf Microbiology - Last 24 Hours (Table) 06/21/21 09:46 Urine Culture - Preliminary Urine,Voided Assessment and Plan Assessment: Acute urinary tract infection Acute kidney injury, improved Hypovolemic hyponatremia, improved Hypertension, Hyperlipidemia Hypothyroidism History of osteoarthritis History of Parkinson disease History of migraine History of hiatal hernia History of CVA/TIA History of GERD Plan: This is a pleasant 65 years old female who presents with acute UTI and gastroenteritis-like picture with dehydration and hypovolemia Continue with IV hydration Continue with ceftriaxone and follow-up urine culture. Monitor creatinine and electrolytes cardiology consult and continue with Plavix Labs and medication were reviewed.. Continue same treatment. Continue with symptomatic treatment. Resume home medication. Monitor lytes and vitals. DVT and GI prophylaxis. Further recommendations depends on the clinical course of the patient DVT prophylaxis: Subcutaneous heparin GI Prophylaxis: Pepcid PT/OT: Pending Prognosis is guarded
[2021-06-23] MEDS: SODIUM CHLORIDE 0.9% 1,000 ML IV SCH (01:39)
[2021-06-23] MEDS: IPRATROPIUM-ALBUTEROL 3 ML NEB INHALATION SCH ×4 (02:29→16:07)
[2021-06-23] MEDS: LEVOTHYROXINE 125 MCG TAB PO SCH (06:30)
[2021-06-23] MEDS ORDERED: PANTOPRAZOLE 40 MG TABLET PO SCH (07:30)
[2021-06-23 07:42] LABS: Basophils % (A) 1 %; Eosinophils # (A) 0.2 k/uL (0-0.7); Eosinophils % (A) 2 %; HCT 35.9 % (34.0-46.0); HGB 11.3 gm/dL (11.4-16.0); Hypochromasia Slight; Lymphocytes # (A) 1.4 k/uL (1.0-4.8); Lymphocytes % (A) 16 %; MCH 30.2 pg (25.0-35.0); MCHC 31.6 g/dL (31.0-37.0); MCV 95.8 fL (80.0-100.0); Mean Platelet Volume 8.6; Monocytes # (A) 0.4 k/uL (0-1.0); Monocytes % (A) 5 %; Neutrophils # (A) 6.6 k/uL (1.3-7.7); Neutrophils % (A) 76 %; Platelet Count 236 k/uL (150-450); RBC 3.75 m/uL (3.80-5.40); RDW 13.5 % (11.5-15.5); WBC 8.6 k/uL (3.8-10.6)
[2021-06-23 08:00] LABS: African American GFR (CKD) >90 (>60 ml/min/1.73 sqM); Anion Gap 5 mmol/L; Blood Urea Nitrogen 12 mg/dL (7-17); Calcium 7.6 mg/dL (8.4-10.2); Carbon Dioxide 18 mmol/L (22-30); Chloride 117 mmol/L (98-107); Glucose 101 mg/dL (74-99); Magnesium 1.8 mg/dL (1.6-2.3); Non-African American GFR(CKD) 84 (>60 ml/min/1.73 sqM); Potassium 3.7 mmol/L (3.5-5.1); Sodium 140 mmol/L (137-145)
[2021-06-23] MEDS: CARBIDOPA-LEVODOPA 25-100 MG 1 EACH TAB PO SCH (08:19)
[2021-06-23] MEDS: CLOPIDOGREL 75 MG TAB PO SCH (08:19)
[2021-06-23] MEDS: MECLIZINE 25 MG TAB PO SCH (08:19)
[2021-06-23] MEDS: METOPROLOL SUCCINATE (ER) 25 MG TAB.ER.24H PO SCH (08:19)
[2021-06-23] MEDS: CALCIUM CARB-VIT D 500 MG-5 MCG TAB PO SCH (08:19)
[2021-06-23] MEDS: CHOLECALCIFEROL 125 MCG (5000 IU) TABLET PO SCH (08:19)
[2021-06-23] MEDS: HEPARIN SODIUM,PORCINE/PF 5,000 UNIT/0.5 ML SYRINGE SQ SCH (08:20)
[2021-06-23] MEDS: DILTIAZEM CD 180 MG CAP.ER.24H PO SCH (08:20)
--- NOTE | 2021-06-23 10:45 | P.PN ---
Subjective Patient is seen in follow-up for acute kidney injury. Renal function is back to baseline. No vomiting or diarrhea. No chest pain or shortness of breath. Receiving IV fluids. Vital signs are stable. General: The patient appeared well nourished and normally developed. HEENT: Head exam is unremarkable. LUNGS: Breath sounds decreased. HEART: Rate and Rhythm are regular. ABDOMEN: Soft, no distention. EXTREMITITES: No edema. Objective - Vital Signs Vital signs: Vital Signs Temp 98.0 F 06/23/21 04:00 Pulse 88 06/23/21 08:54 Resp 18 06/23/21 04:00 BP 116/66 06/23/21 04:00 Pulse Ox 96 06/23/21 04:00 Intake & Output 06/22/21 06/23/21 06/23/21 18:59 06:59 18:59 Intake Total 1997 Balance 1997 Intake: Intake, IV Titration 1400 Amount Sodium Chloride 0.9% 1, 1350 000 ml @ 75 mls/hr IV . [id number] [facility] Rx#:[id number] cefTRIAXone 1 gm In 50 Sodium Chloride 0.9% 50 ml @ 100 mls/hr IVPB Q24HR [facility] Rx#:[id number] Oral 598 Other: Voiding Method Toilet Toilet # Voids 2 - Labs CBC & Chem 7: 06/23/21 07:00 06/23/21 07:00 Labs: Abnormal Lab Results - Last 24 Hours (Table) 06/23/21 06/23/21 Range/Units 07:00 07:00 RBC 3.75 L (3.80-5.40) m/uL Hgb 11.3 L (11.4-16.0) gm/dL Chloride 117 H (98-107) mmol/L Carbon Dioxide 18 L (22-30) mmol/L Glucose 101 H (74-99) mg/dL Calcium 7.6 L (8.4-10.2) mg/dL Microbiology - Last 24 Hours (Table) 06/21/21 09:46 Urine Culture - Preliminary Urine,Voided Gram Neg Bacilli 06/21/21 13:20 Blood Culture - Preliminary Blood No Growth after 24 hours 06/21/21 13:05 Blood Culture - Preliminary Blood No Growth after 24 hours Assessment and Plan Plan: Assessment: 1. Acute kidney injury mostly prerenal secondary to hypovolemia from vomiting and diarrhea. Improved. Creatinine was 2.15 on admission and is 0.75 today. 2. Hypokalemia from saline diuresis and poor intake. Replace. Better. 3. UTI on antibiotics. Urine culture positive for gram-negative bacilli. 4. Benign hypertension. Controlled. 5. Hypovolemic hyponatremia improved with IV hydration. 6. Metabolic acidosis secondary to acute kidney injury, GI losses and IV fluids. Plan: Hep-Lock IV fluids. Avoid nephrotoxins. Repeat labs in the morning.
[2021-06-23 11:14] VITALS: BP 105/61; RESP 20; TEMP 96.4
[2021-06-23] MEDS ORDERED: Potassium Replacement Protocol 1 EACH MISC MISCELLANE PRN (11:49)
[2021-06-23] MEDS ORDERED: POTASSIUM CHLORIDE ER 20 MEQ TAB.ER PO ONE (11:50)
[2021-06-23] MEDS ORDERED: LOPERAMIDE 2 MG CAP PO PRN (11:50)
[2021-06-23] MEDS ORDERED: MAGNESIUM SULFATE-D5W PMX 1 GM in DEXTROSE/WATER 1 100ML.BAG IVPB SCH (12:00)
--- NOTE | 2021-06-23 12:05 | P.PN ---
Subjective Progress Note Date: 06/23/21 HISTORY OF PRESENT ILLNESS: This is a 65-year-old female with a past medical history significant for hypertension, hyperlipidemia, Parkinson's disease, and multiple sclerosis. Patient follows in the office with Dr. Cantu. We have been asked to see the patient in consultation for abnormal troponin. Patient examined at the bedside. Patient presented to the hospital with a chief complaint of not feeling well. Patient states over the past 6-7 days she has had generalized malaise. She reports generalized weakness. She states she has been having nausea, vomiting and diarrhea. She reports she has not been able to keep anything down. She reports mild shortness of breath with a cough and congestion. She denies chest pain or pressure. She denies any fever at home. EKG reveals sinus mechanism with nonspecific ST-T wave changes Chest xray mild cardiomegaly and chronic parenchymal changes without acute pulmonary process. No significant change from prior. Laboratory data: WBC 20.1. Hemoglobin 13.8. Platelet count 373. Sodium 127. Potassium 4.0. B UN 33. Creatinine 2.15. Troponin 0.044. 0.019. 0.018. Current home cardiac medications include Benicar 20 mg daily, metoprolol succinate 25 mg daily, Cardizem 180 mg daily, Plavix 75 mg daily, Lipitor 20 mg daily Most recent echocardiogram obtained in April 2020 revealed ejection fraction 55-60%, mild to moderate tricuspid regurgitation, mild to moderate pulmonary hypertension Cardiac catheterization history: 2017 revealing minimal coronary artery disease 06/23/2021 Patient examined this morning at the bedside. Patient denies chest pain or pressure. She denies shortness of breath. She does report that she developed a cough this morning. Patient's acute kidney injury has resolved. She is receiving IV fluids. Nephrology is following. Vital signs are stable. Echocardiogram completed revealing ejection fraction 50-55% PHYSICAL EXAM: VITAL SIGNS: Reviewed. GENERAL: Well-developed in no acute distress. HEENT: Head is normocephalic. Pupils are equal, round. Sclerae anicteric. Mucous membranes of the mouth are moist. Neck supple. No JVD or thyromegaly LUNGS: Respirations even and unlabored. Lungs essentially clear to auscultation bilaterally. HEART: Regular rate and rhythm. S1 and S2 heard. Systolic murmur noted. ABDOMEN: Soft. Nondistended. Nontender. EXTREMITIES: Normal range of motion. No clubbing or cyanosis. Peripheral pulses intact. No lower extremity edema NEUROLOGIC: Awake and alert. Oriented x 3. ASSESSMENT: Generalized weakness Nausea, vomiting, diarrhea Acute renal failure Abnormal troponin, secondary to TATIANA, no evidence of ACS Leukocytosis Abnormal UA, possible UTI Hyponatremia Hypokalemia Hypertension Multiple sclerosis Parkinson's disease PLAN: Continue current cardiac medications Patient may resume Olmesartan at discharge Nephrology following Patient stable for discharge home from a cardiac standpoint We will sign off. Please reconsult if needed. Nurse practitioner note has been reviewed by physician. Signing provider agrees with the documented findings, assessment, and plan of care. Objective - Vital Signs Vital signs: Vital Signs Temp 96.4 F L 06/23/21 11:09 Pulse 82 06/23/21 11:09 Resp 20 06/23/21 11:09 BP 105/61 06/23/21 11:09 Pulse Ox 97 06/23/21 11:09 Intake & Output 06/22/21 06/23/21 06/23/21 18:59 06:59 18:59 Intake Total 1997 Balance 1997 Intake: Intake, IV Titration 1400 Amount Sodium Chloride 0.9% 1, 1350 000 ml @ 75 mls/hr IV . [id number] [facility]ON[facility] Rx#:[id number] cefTRIAXone 1 gm In 50 Sodium Chloride 0.9% 50 ml @ 100 mls/hr IVPB Q24HR RON[facility] Rx#:[id number] Oral 598 Other: Voiding Method Toilet Toilet # Voids 2 - Labs CBC & Chem 7: 06/23/21 07:00 06/23/21 07:00 Labs: Abnormal Lab Results - Last 24 Hours (Table) 06/23/21 06/23/21 Range/Units 07:00 07:00 RBC 3.75 L (3.80-5.40) m/uL Hgb 11.3 L (11.4-16.0) gm/dL Chloride 117 H (98-107) mmol/L Carbon Dioxide 18 L (22-30) mmol/L Glucose 101 H (74-99) mg/dL Calcium 7.6 L (8.4-10.2) mg/dL Microbiology - Last 24 Hours (Table) 06/21/21 09:46 Urine Culture - Preliminary Urine,Voided Gram Neg Bacilli 06/21/21 13:20 Blood Culture - Preliminary Blood No Growth after 24 hours 06/21/21 13:05 Blood Culture - Preliminary Blood No Growth after 24 hours
[2021-06-23 14:00] VITALS: PULSE 95
[2021-06-23] MEDS ORDERED: CHOLESTYRAMINE (WITH SUGAR) 4 GM PACKET PO SCH (18:00)
--- NOTE | 2021-06-23 23:39 | P.DS ---
Providers Date of admission: 06/21/21 13:05 Attending physician: Roger Schultz MD Consults: 06/21/21 13:05 Consult Physician Urgent Consulting Provider: Dequan Guthrie Consult Reason/Comments: TATIANA Do you want consulting provider notified?: Yes 06/21/21 16:23 Consult Physician Urgent Consulting Provider: Zachary Pennington Consult Reason/Comments: elevated troponin Do you want consulting provider notified?: Yes Primary care physician: All Greenberg Hospital Course: Final Diagnosis Acute Gastroenteritis most likely viral Asymptomatic bacteriurea Acute kidney injury, improved Hypovolemic hyponatremia, improved Hypertension, Hyperlipidemia Hypothyroidism History of osteoarthritis History of Parkinson disease History of migraine History of hiatal hernia History of CVA/TIA History of GERD Obesity FULL CODE Discharge Disposition Stable for discharge home and to follow up with PCP, monitor for return of diarrhea. Hospital course This is a pleasant 65 year old female who presents to the with complaints of not feeling good for the past week. Her PCP is Dr. Greenberg , exploration manager is Dr. Noland for hypothyroidism and she sees Dr. Monahan for Parkinson disease while her fruit express agent is Dr. Cantu. She's been having decreased appetite and decreased oral intake, eating a little bit for about a week. She was also not taking her medication as supposed to be. Patient has been vomiting a lot started from Monday total last Monday about couple days ago every time about 2-3 times per day. Associated with continuous diarrhea as the patient describes but no abdominal pain. She also reports exertional dyspnea with cough and phlegm. Vitals are stable and she is saturating 97% on room air, as well as she is afebrile. Labs showed leukocytosis with WBCs 20.1. Chest of CBC is unremarkable. INR is normal 1.0. Sodium is low at 127 and creatinine is elevated at 2.1 Glucose 114, alkaline phosphatase 131, liver enzymes were not significantly elevated with ALT 8 and AST 80. Bilirubin is normal 1.1. Troponin is elevated at 0.04. Urine analysis is suspicious of infection with large leukocyte esterase and decreased urine WBC 63. Coronavirus not detected. EKG showing normal sinus rhythm at [address]-T changes Chest x-ray showed mild cardiomegaly with chronic parenchymal changes with no acute process. In the emergency room she receiving normal saline and ceftriaxone and Zithromax. Echocardiogram from 04/2020 showed ejection fraction of 55-60%. Patient had repeat echocardiogram which shows an EF of 50 to 55% with mild concentric left ventricular hypertrophy, mild mitral regurgitation, mild tricuspid regurgitation, and pericardial fat pad. She was evaluated by cardiology who has ruled out acute coronary syndrome. Troponin leak probably due to acute kidney injury from dehydration. Patient did receive IV hydration and creatinine improved to 0.75 which is baseline, nephrology was following along with the patient. Blood cultures are negative x2, WBC now WNL at 8.6. 06/23/2021 Patient evaluated today, did have an episode of diarrhea last night she reports it as a "cottage cheese" texture and yellow/orange color. CDIF negative. Being followed by nephrology. Urine culture showing E.coli, she received 4 doses of IV rocephin. Procalcitonin was negative at 0.17. Cardiology ruled out acute coronary event. Olmesartan continues to be held, blood pressure are marginal 105/61, afebrile, 97% on room air. Labs today show white count 8.6, hemoglobin 11.3, sodium 140, potassium 3.7, chloride 117, CO2 18, BUN 12, creatinine 0.75, glucose 101, calcium 7.6, mag 1.8. Lungs are clear, s1 and s2 auscultated, abdomen soft and nontender, passing as. She denies any nausea, vomiting, and no diarrhea today. Focal neurological exam is negative. She is complaining of some muffled hearing that has onsent with the GI issues, we did recommened to follow up with ENT post discharge if this continues. Patient is cleared for discharged, CDIF was negative so she can take imodium or questran for antidiarrheal and increase oral intake. Monitor for signs of bleeding, fever. Blood pressure 105/61, heart rate 95, afebrile, 97% on room air, alert and oriented x4. Please see medication reconciliation for a list of current medication. Thank you for allowing us to participate in the care of this patient. Patient Condition at Discharge: Good Plan - Discharge Summary Discharge Rx Participant: No New Discharge Prescriptions: New Loperamide [Imodium] 2 mg PO QID PRN cap PRN Reason: Diarrhea Cholestyramine (with Sugar) [Questran Packet] 4 gm PO BID@1000,1800 PRN 5 Days #10 packet PRN Reason: Diarrhea Continue Omeprazole [PriLOSEC] 20 mg PO DAILY Meclizine [Antivert] 25 mg PO DAILY Clopidogrel [Plavix] 75 mg PO DAILY Alendronate Sodium [Fosamax] 70 mg PO SA Levothyroxine Sodium [Synthroid] 125 mcg PO DAILY Nortriptyline HCl [Pamelor] 10 mg PO HS Atorvastatin [Lipitor] 20 mg PO HS tab HYDROcodone/APAP 7.5-325MG [[place] 7.5-325] 1 tab PO BID PRN PRN Reason: Pain Vitamin B Complex 1 cap PO DAILY Diltiazem HCl [Cartia Xt] 180 mg PO DAILY Metoprolol Succinate (ER) [Toprol XL] 25 mg PO DAILY #90 tab.er.24h Cholecalciferol (Vitamin D3) [Vitamin D3 (125 MCG = 5,000 IU)] 125 mcg PO DAILY Carbidopa-Levodopa 25-100 mg [Sinemet 25-100 mg] 2 tab PO BID@0800,2100 Carbidopa-Levodopa 25-100 mg [Sinemet 25-100 mg] 1 tab PO DAILY@1700 Calcium Citrate/Vitamin D3 [Citracal + D Maximum Caplet] 1 tab PO DAILY Discontinued Olmesartan [Benicar] 20 mg PO DAILY Discharge Medication List Alendronate Sodium [Fosamax] 70 mg PO SA 12/03/13 [History] Clopidogrel [Plavix] 75 mg PO DAILY 12/03/13 [History] Meclizine [Antivert] 25 mg PO DAILY 12/03/13 [History] Omeprazole [PriLOSEC] 20 mg PO DAILY 12/03/13 [History] Levothyroxine Sodium [Synthroid] 125 mcg PO DAILY 11/13/15 [History] Nortriptyline HCl [Pamelor] 10 mg PO HS 03/15/17 [History] Atorvastatin [Lipitor] 20 mg PO HS tab 03/17/17 [Rx] Diltiazem HCl [Cartia Xt] 180 mg PO DAILY 07/24/18 [History] HYDROcodone/APAP 7.5-325MG [[place] 7.5-325] 1 tab PO BID PRN 07/24/18 [History] Vitamin B Complex 1 cap PO DAILY 07/24/18 [History] Metoprolol Succinate (ER) [Toprol XL] 25 mg PO DAILY #90 tab.er.24h 04/26/19 [Rx] Calcium Citrate/Vitamin D3 [Citracal + D Maximum Caplet] 1 tab PO DAILY 06/21/21 [History] Carbidopa-Levodopa 25-100 mg [Sinemet 25-100 mg] 1 tab PO DAILY@1700 06/21/21 [History] Carbidopa-Levodopa 25-100 mg [Sinemet 25-100 mg] 2 tab PO BID@0800,2100 06/21/21 [History] Cholecalciferol (Vitamin D3) [Vitamin D3 (125 MCG = 5,000 IU)] 125 mcg PO DAILY 06/21/21 [History] Cholestyramine (with Sugar) [Questran Packet] 4 gm PO BID@1000,1800 PRN 5 Days #10 packet 06/23/21 [Rx] Loperamide [Imodium] 2 mg PO QID PRN cap 06/23/21 [Rx] Follow up Appointment(s)/Referral(s): All Greenberg MD [Primary Care Provider] - 1-2 days José Cantu MD [STAFF PHYSICIAN] - 1 Week Hari Francis DO [Doctor of Osteopathic Medicine] - 1 Week Ambulatory/Diagnostic Orders: Basic Metabolic Panel [LAB.AMB] Time Frame: 2 Days, Location: None Selected Patient Instructions/Handouts: Gastroenteritis (DC) Activity/Diet/Wound Care/Special Instructions: Monitor blood pressure at home, if it becomes elevated than can resume olmesartan for now continue to hold. Discharge Disposition: HOME SELF-CARE
== END 2021-06-23 15:57 | disposition home or self-care (01) | DRG 392 ==
LOC: EC 08:58 → 3SCARD 13:05
PROVIDERS: ADMIT Internal Medicine; ATTEND Internal Medicine
DX: A08.4 Viral intestinal infection, unspecified (principal); N17.9 Acute kidney failure, unspecified; N39.0 Urinary tract infection, site not specified; E87.1 Hypo-osmolality and hyponatremia; E87.2 Acidosis; R53.1 Weakness; Z20.822 Contact with and (suspected) exposure to COVID-19; E03.9 Hypothyroidism, unspecified; Z68.36 Body mass index [BMI] 36.0-36.9, adult; I10 Essential (primary) hypertension; R79.89 Other specified abnormal findings of blood chemistry; M81.0 Age-related osteoporosis without current pathological fracture; E66.9 Obesity, unspecified; I27.20 Pulmonary hypertension, unspecified; I08.1 Rheumatic disorders of both mitral and tricuspid valves; E78.5 Hyperlipidemia, unspecified; E86.0 Dehydration; E86.1 Hypovolemia; E87.6 Hypokalemia; F41.9 Anxiety disorder, unspecified; G20 Parkinson's disease; G35 Multiple sclerosis; H91.90 Unspecified hearing loss, unspecified ear; Z79.890 Hormone replacement therapy; Z79.02 Long term (current) use of antithrombotics/antiplatelets; Z79.83 Long term (current) use of bisphosphonates; Z79.899 Other long term (current) drug therapy; Z86.73 Personal history of transient ischemic attack (TIA), and cerebral infarction without residual deficits; Z90.710 Acquired absence of both cervix and uterus; Z87.01 Personal history of pneumonia (recurrent); Z90.49 Acquired absence of other specified parts of digestive tract; Z87.19 Personal history of other diseases of the digestive system; Z88.2 Allergy status to sulfonamides; Z88.1 Allergy status to other antibiotic agents; Z88.8 Allergy status to other drugs, medicaments and biological substances
CPT/HCPCS: 36415; 71046; 80048; 80053; 81001; 83605; 83735; 84145; 84484; 85025; 85610; 85730; 87040; 87077; 87086; 87186; 87324; 87635; 93005; 93306; 94640; 96361; 96365; 96366; 96367; 99285

== ENCOUNTER → 2021-09-27 | Outpatient (CLI) | payer MEDICARE ==
[2021-09-27 14:44] LABS: Basophils # (A) 0.07 X 10*3/uL (0.00-0.10); Basophils % (A) 0.8 %; Eosinophils # (A) 0.13 X 10*3/uL (0.04-0.35); Eosinophils % (A) 1.5 %; HCT 43.1 % (37.2-46.3); HGB 13.3 g/dL (12.0-15.0); Immature Grans, Automated 0.5 %; Lymphocytes # (A) 1.29 X 10*3/uL (0.90-5.00); Lymphocytes % (A) 14.5 %; MCH 28.9 pg (27.0-32.0); MCHC 30.9 g/dL (32.0-37.0); MCV 93.7 fL (80.0-97.0); Mean Platelet Volume 11.5 fL (9.5-12.2); Monocytes # (A) 0.57 X 10*3/uL (0.20-1.00); Monocytes % (A) 6.4 %; NRBC Per 100 WBC 0 /100 WBCS (0.0-0.0); Neutrophils # (A) 6.78 X 10*3/uL (1.80-7.70); Neutrophils % (A) 76.3 %; Platelet Count 257 X 10*3/uL (140-440); RDW 14.5 % (11.5-14.5); WBC 8.88 X 10*3/uL (4.50-10.00)
[2021-09-27 18:24] LABS: African American GFR (CKD) 68.5 (60.0-200.0); Albumin 4.3 g/dL (3.8-4.9); Albumin/Globulin Ratio 1.39 (1.60-3.17); BUN/Creat Ratio 16.5 Ratio (12.00-20.00); Blood Urea Nitrogen 16.5 mg/dL (9.0-27.0); Calcium 9.3 mg/dL (8.7-10.3); Globulin 3.1 g/dL (1.6-3.3); Non-African American GFR(CKD) 59.1 (60.0-200.0); Potassium 4.5 mmol/L (3.5-5.5); Total Bilirubin 0.4 mg/dL (0.30-1.20); Total Protein 7.4 g/dL (6.2-8.2)
== END | disposition home or self-care (01) ==
LOC: LABWHC1 08:25
PROVIDERS: ATTEND Psychiatry & Neurology Neurology
DX: E55.9 Vitamin D deficiency, unspecified (principal); E53.9 Vitamin B deficiency, unspecified; R53.83 Other fatigue; G35 Multiple sclerosis; R53.1 Weakness
CPT/HCPCS: 36415; 80053; 82306; 82607; 84207; 85025

== ENCOUNTER 2021-12-02 15:55 | Emergency (ER) | payer BC, MEDICARE ==
[2021-12-02 17:46] VITALS: TEMP 98
[2021-12-02] MEDS ORDERED: diphenhydrAMINE 50 MG/ML 1 ML VIAL IM STA (17:47)
[2021-12-02] MEDS ORDERED: MORPHINE SULFATE 4 MG/ML SYRINGE IM STA (17:47)
[2021-12-02] MEDS ORDERED: METOCLOPRAMIDE 5 MG/ML 2 ML VIAL IM STA (17:47)
--- NOTE | 2021-12-02 17:51 | ED ---
General Adult HPI - General Chief complaint: Headache Stated complaint: Sent my PCP/Headaches Time Seen by Provider: 12/02/21 17:33 Source: patient, RN notes reviewed Mode of arrival: ambulatory Limitations: no limitations - History of Present Illness Initial comments: Patient is a pleasant 65-year-old female presenting to emergency Department with complaints of headaches. Patient does have chronic headaches. This headache started 3-4 days ago. Gradual onset. Patient has no nausea. No confusion or weakness. No speech problems. Patient does have history of 6 previous TIAs however this does not feel similar to that. Patient does have mild photophobia. Headache is somewhat similar to chronic headaches however they usually do not last quite this long. - Related Data Home Medications Medication Instructions Recorded Confirmed Alendronate Sodium [Fosamax] 70 mg PO SA 12/03/13 06/21/21 Clopidogrel [Plavix] 75 mg PO DAILY 12/03/13 06/21/21 Meclizine [Antivert] 25 mg PO DAILY 12/03/13 06/21/21 Omeprazole [PriLOSEC] 20 mg PO DAILY 12/03/13 06/21/21 Levothyroxine Sodium [Synthroid] 125 mcg PO DAILY 11/13/15 06/21/21 Nortriptyline HCl [Pamelor] 10 mg PO HS 03/15/17 06/21/21 HYDROcodone/APAP 7.5-325MG [[place] 1 tab PO BID PRN 07/24/18 06/21/21 7.5-325] Vitamin B Complex 1 cap PO DAILY 07/24/18 06/21/21 dilTIAZem HCL [Cartia Xt] 180 mg PO DAILY 07/24/18 06/21/21 Calcium Citrate/Vitamin D3 1 tab PO DAILY 06/21/21 06/21/21 [Citracal + D Maximum [place]] Carbidopa-Levodopa 25-100 mg 1 tab PO DAILY@1700 06/21/21 06/21/21 [Sinemet 25-100 mg] Carbidopa-Levodopa 25-100 mg 2 tab PO BID@0800,2100 06/21/21 06/21/21 [Sinemet 25-100 mg] Cholecalciferol (Vitamin D3) 125 mcg PO DAILY 06/21/21 06/21/21 [Vitamin D3 (125 MCG = 5,000 IU)] Previous Rx's Medication Instructions Recorded Atorvastatin [Lipitor] 20 mg PO HS tab 03/17/17 Metoprolol Succinate (ER) [Toprol 25 mg PO DAILY #90 tab.er.24h 04/26/19 XL] Cholestyramine (with Sugar) 4 gm PO BID@1000,1800 PRN 5 Days 06/23/21 [Questran Packet] #10 packet Loperamide [Imodium] 2 mg PO QID PRN cap 06/23/21 Allergies Allergy/AdvReac Type Severity Reaction Status Date / Time doxycycline AdvReac upset Verified 12/02/21 17:46 stomach doxycycline hyclate AdvReac Vomiting Verified 12/02/21 17:46 [From Vibra-Tabs] isosorbide [From Imdur] AdvReac MIGRAINE Verified 12/02/21 17:46 HEADACHE Sulfa (Sulfonamide AdvReac Vomiting Verified 12/02/21 17:46 Antibiotics) Review of Systems ROS Statement: Those systems with pertinent positive or pertinent negative responses have been documented in the HPI. ROS Other: All systems not noted in ROS Statement are negative. Constitutional: Denies: fever Eyes: Denies: eye pain ENT: Denies: ear pain Respiratory: Denies: cough Cardiovascular: Denies: chest pain Endocrine: Denies: fatigue Gastrointestinal: Denies: abdominal pain, vomiting Genitourinary: Denies: dysuria Musculoskeletal: Denies: back pain Skin: Denies: rash Neurological: Reports: as per HPI, headache. Denies: weakness, numbness, paresthesias, confusion, abnormal gait, vertigo Past Medical History Past Medical History: CVA/TIA, GERD/Reflux, Hyperlipidemia, Hypertension, Osteoarthritis (OA), Thyroid Disorder Additional Past Medical History / Comment(s): MS, migranes, 6 TIA's- rt side weakness, hiatal hernia, osteoporosis, heart murmr, palpitations, "leaky heart valve", Parkinson's, constipation, food getting stuck in esophagus History of Any Multi-Drug Resistant Organisms: None Reported Past Surgical History: Appendectomy, Cholecystectomy, Heart Catheterization, Hysterectomy, Orthopedic Surgery Additional Past Surgical History / Comment(s): left shoulder surgery, left elbow surgery, parathyroid surgery, arthroscopy left knee x4, b/l wrist carpal tunnel, cyst removed from left wrist, "eye surgery to scrape pimples off" Past Anesthesia/Blood Transfusion Reactions: Family History of Problems w/ Anesthesia, Postoperative Nausea & Vomiting (PONV) Additional Past Anesthesia/Blood Transfusion Reaction / Comment(s): Father had problem with anesthesia but not sure what. Past Psychological History: Anxiety Smoking Status: Never smoker Past Alcohol Use History: None Reported Past Drug Use History: None Reported - Past Family History Mother Family Medical History: Cancer, Deep Vein Thrombosis (DVT) Additional Family Medical History / Comment(s): KIDNEY Father Family Medical History: Cancer Additional Family Medical History / Comment(s): PROSTATE General Exam Limitations: no limitations General appearance: alert, in no apparent distress Head exam: Present: atraumatic, normocephalic, other (No tenderness over the temporal arteries) Eye exam: Present: normal appearance, PERRL, EOMI ENT exam: Present: normal oropharynx Neck exam: Present: normal inspection Respiratory exam: Present: normal lung sounds bilaterally Cardiovascular Exam: Present: regular rate, normal rhythm GI/Abdominal exam: Present: soft. Absent: tenderness Extremities exam: Present: normal inspection Neurological exam: Present: alert, oriented X3, CN II-XII intact. Absent: motor sensory deficit Expanded Neurological exam: Present: protecting the airway Speech: Present: fluid speech Cranial nerves: EOM's Intact: Normal, Facial Sensation: Normal Sensory exam: Upper Extremity Light Touch: Normal, Lower Extremity Light Touch: Normal Motor strength exam: RUE: 5, LUE: 5, RLE: 5, LLE: 5 Eye Response: (4) open spontaneously Motor Response: (6) obeys commands Verbal Response: (5) oriented Psychiatric exam: Present: normal affect, normal mood Skin exam: Present: normal color Course Vital Signs 12/02/21 17:44 Temperature 98 F Pulse Rate 58 L Respiratory 18 Rate Blood Pressure 146/94 O2 Sat by Pulse 95 Oximetry Medical Decision Making - Medical Decision Making Patient reevaluated and resting comfortably in chair. Patient updated Disposition Clinical Impression: Cephalgia Disposition: HOME SELF-CARE Condition: Stable Instructions (If sedation given, give patient instructions): Acute Headache (ED) Additional Instructions: Please follow-up to primary care physician in the next day or 2 for recheck. Return for increased pain, vomiting, weakness, confusion, worsening or changing symptoms or other concerns. Is patient prescribed a controlled substance at d/c from ED?: No Referrals: All Greenberg MD [Primary Care Provider] - 1-2 days Time of Disposition: 19:52
--- NOTE | 2021-12-02 18:12 | CT ---
EXAMINATION TYPE: CT brain wo con DATE OF EXAM: 12/02/2021 HISTORY: Headache, occipital region, since yesterday. Hx HTN CT DLP: 1158.4 mGycm. Automated Exposure Control for Dose Reduction was Utilized. TECHNIQUE: CT scan of the head is performed without contrast. COMPARISON: 03/15/2017 FINDINGS: There is no acute intracranial hemorrhage or midline shift identified. There is diffuse v entricular and sulcal prominence consistent with diffuse age-related cerebral atrophy. There is low- attenuation in the periventricular white matter consistent with chronic small vessel ischemic change. The globes are intact and the visualized sinuses are clear. IMPRESSION: No acute intracranial hemorrhage or midline shift. There is diffuse age-related cerebra l atrophy and chronic small vessel ischemic change noted.
[2021-12-02 20:40] VITALS: BP 154/88; PULSE 78; RESP 20
== END 2021-12-02 20:40 | disposition home or self-care (01) ==
LOC: EC 15:55
DX: R51.9 Headache, unspecified (principal); I10 Essential (primary) hypertension; Z86.73 Personal history of transient ischemic attack (TIA), and cerebral infarction without residual deficits; E07.9 Disorder of thyroid, unspecified; Z88.1 Allergy status to other antibiotic agents; Z88.2 Allergy status to sulfonamides; Z88.8 Allergy status to other drugs, medicaments and biological substances; Z79.02 Long term (current) use of antithrombotics/antiplatelets; Z79.890 Hormone replacement therapy
CPT/HCPCS: 70450; 99284; 96372; J2270; J1200; J2765

== ENCOUNTER → 2022-11-18 | Outpatient (CLI) | payer MEDICARE ==
--- NOTE | 2022-11-21 12:20 | MM ---
Reason for Exam: Screening (asymptomatic). Last mammogram was performed 4 year(s) and 1 month(s) ago. Patient History: Menarche at age 13. Patient has no children. Hysterectomy at age 38. Postmenopausal. Maternal aunt had breast cancer. Maternal cousin had breast cancer at or over age 50. Maternal cousin had breast cancer at or over age 50. Risk Values: Moriah 5 year model risk: 1.9%. NCI Lifetime model risk: 6.7%. Prior Study Comparison: 10/26/2015 Bilateral Screening Mammogram, [facility]. 05/30/2017 Bilateral Screening Mammogram, [facility]. 10/04/2018 Bilateral Screening Mammogram, [facility]. Tissue Density: The breast tissue is heterogeneously dense. This may lower the sensitivity of mammography. Findings: Analyzed By CAD. Pattern appears symmetrical and stable. Benign calcifications are present bilaterally. No significant interval change is evident. No suspicious groups of microcalcifications, spiculated or lobular masses, architectural distortion or other secondary signs of malignancy are mammographically apparent. Overall Assessment: Benign, BI-RAD 2 Management: Screening Mammogram of both breasts in 1 year. A negative mammogram report should not preclude additional follow up of suspicious palpable abnormalities. Patient should continue monthly self breast exam. A clinical breast exam by your physician is recommended on an annual basis and results should be correlated with mammographic findings. Electronically signed and approved by: Tommy Yousif D.O. Radiologis
--- NOTE | 2022-11-23 07:18 | BD ---
EXAMINATION TYPE: Axial Bone Density DATE OF EXAM: 11/18/2022 CLINICAL HISTORY: 66 years old Female. ICD-10 CODE: Z12.31, Z78.0 Height: 58.5 Weight: 180 FRAX RISK QUESTIONS: History of Fracture in Adulthood: yes, rt & lt wrist Secondary Osteoporosis: yes 3. Menopause before 45: yes, age 38 hyst RISK FACTORS HISTORY OF: History of Wrist Fracture: yes, 2017 foot , lt and rt wrist When: age 50 Active: yes Diet low in dairy products/other sources of calcium: no Postmenopausal woman: yes Frequent falls: no Poor Health: no MEDICATIONS: Thyroid Medications: yes Which medication: Synthroid How Lon+ years Osteoporosis Medications: yes Which medication: Fosamax How Lon+ years Additional Medications: yes vit d, Plavix, Cardizem, Pamelor, Prilosec, anti vert, Vicodin, Provigil, Benicar, hbp meds , cholest mark Patient has parkinson's and MS and hyperparathyroidisms it was removed in 2017 EXAM MEASUREMENTS: Bone mineral densitometry was performed using the Swirl System. Bone mineral density as measured about the Lumbar spine is: ----- L1-L4(G/cm2): 1.006 T Score Values are as follows: ----- L1: -2.1 ----- L2: -1.3 ----- L3: -1.1 ----- L4: -1.5 ----- L1-L4: -1.4 Z Score Values are as follows: ----- L1: -1.0 ----- L2: -0.3 ----- L3: 0.0 ----- L4: -0.4 ----- L1-L4: -0.4 Bone mineral density has: Increased 1.7% since study of: 10-04-2018 Bone mineral density about the R hip (g/cm2): 0.763 Bone mineral density about the L hip (g/cm2): 0.806 T Score values are as follows: -----R Neck: -2.0 -----L Neck: -1.6 -----R Total: -1.9 -----L Total: -1.6 Z Score values are as follows: -----R Neck: -0.8 -----L Neck: -0.4 -----R Total: -1.1 -----L Total: -0.7 Bone mineral density has: Increased 2.2% since study of: 10-04-2018 FRAX%s: The graph provided illustrates a 16.4% chance for a major osteoporotic fx and a 2.5% chance f or the hips probability for fx in 10 years time. IMPRESSION: Osteopenia (T Score between -2.5 and -1). There is slightly increased risk of fracture and the patient may be considered for treatment. Re-Screen 2-5 years. NOTE: T-SCORE=SD OF THE YOUNG ADULT MEAN.
== END | disposition home or self-care (01) ==
LOC: RADBDWWP 13:02
PROVIDERS: ATTEND Family Medicine
DX: Z12.31 Encounter for screening mammogram for malignant neoplasm of breast (principal); M85.89 Other specified disorders of bone density and structure, multiple sites; Z78.0 Asymptomatic menopausal state; Z80.3 Family history of malignant neoplasm of breast
CPT/HCPCS: 77063; 77067; 77080

== ENCOUNTER → 2023-11-21 | Outpatient (CLI) | payer MEDICARE ==
--- NOTE | 2023-11-21 09:20 | US ---
EXAMINATION TYPE: US Aorta Screening DATE OF EXAM: 11/21/2023 COMPARISON: Abdominal ultrasound 07/28/16 CLINICAL INDICATION: Female, 67 years old with history of Z13.6 ENCOUNTER FOR SCREENING FOR CARDIOVAS CULAR D; screening. Pt states dad had hx of AAA TECHNIQUE: Multiple sonographic images of the abdominal aorta are obtained. FINDINGS: EXAM MEASUREMENTS: Abdominal Aorta: Proximal: 2.3 x 2.3cm Mid: 2.0 x 1.8cm Distal: 1.9 x 1.5cm Bifurcation: Right Iliac: 1.1 x 1.4cm Left Iliac: 1.0 x 1.2cm [employer]ETING ASSISTANT NOTES: mid aorta slightly limited due to bowel gas. No AAA seen at this time IMPRESSION: No ultrasound evidence for abdominal aortic aneurysm.
--- NOTE | 2023-11-22 15:13 | MM ---
Reason for Exam: Screening (asymptomatic). Last mammogram was performed 1 year(s) and 1 month(s) ago. Patient History: Menarche at age 13. Patient has no children. Hysterectomy at age 38. Postmenopausal. Maternal aunt had breast cancer. Maternal cousin had breast cancer at or over age 50. Maternal cousin had breast cancer at or over age 50. Risk Values: [place] 5 year model risk: 1.9%. NCI Lifetime model risk: 6.4%. Prior Study Comparison: 05/30/2017 Bilateral Screening Mammogram, [facility]. 10/04/2018 Bilateral Screening Mammogram, [facility]. 11/18/2022 Bilateral MG 3D screening mammo w/cad, [facility]. Tissue Density: The breasts are heterogeneously dense, which may obscure small masses. Findings: Analyzed By CAD. There is no suspicious group of microcalcifications or new suspicious mass in either breast. Bilateral benign-appearing calcifications. Overall Assessment: Benign, BI-RAD 2 Management: Screening Mammogram of both breasts in 1 year. . Patient should continue monthly self-breast exams. A clinical breast exam by your physician is recommended on an annual basis. This exam should not preclude additional follow-up of suspicious palpable abnormalities. Note on Moriah scores and lifetime risk: 1. A Moriah score greater than 3% is considered moderate risk. If this is the case, consider specialist referral to assess eligibility for a risk reducing agent. 2. If overall lifetime risk for the development of breast cancer is 20% or higher, the patient may qualify for future screening with alternating mammogram and breast MRI. Electronically signed and approved by: Jose Thomas M.D. Radiologis
== END | disposition home or self-care (01) ==
LOC: RADUSWWP 06:51
PROVIDERS: ATTEND Family Medicine
DX: Z12.31 Encounter for screening mammogram for malignant neoplasm of breast (principal); Z13.6 Encounter for screening for cardiovascular disorders; Z78.0 Asymptomatic menopausal state; Z80.3 Family history of malignant neoplasm of breast
CPT/HCPCS: 76706; 77063; 77067

== ENCOUNTER 2024-04-17 13:03 | Observation (INO) | payer MEDICARE ==
--- NOTE | 2024-04-17 13:32 | ED ---
General Adult HPI - General Chief complaint: Weakness Stated complaint: Hypertension,weakness-sent by PCP Time Seen by Provider: 04/17/24 13:14 Source: patient Mode of arrival: ambulatory Limitations: no limitations - History of Present Illness Initial comments: Dictation was produced using [employer] dictation software. please excuse any grammatical, word or spelling errors. Chief Complaint: 68-year-old female with history of enlarged heart presents to the ER for shortness of breath History of Present Illness: Patient 60-year-old female presents to the emergency department for shortness of breath she was feeling short of breath check her blood pressure is found to be elevated she has history of hypertension. She states has been compliant with all her medications. She has been seen by cardiology however workup for her enlarged heart has been delayed due to significant issues with her . Patient denies any fever chills or night sweats. She does have a mild cough. Denies any lower extremity symptoms. No history of blood clot The ROS documented in this emergency department record has been reviewed and confirmed by me. Those systems with pertinent positive or negative responses have been documented in the HPI. All other systems are other negative and/or noncontributory. - Related Data Home Medications Medication Instructions Recorded Confirmed Alendronate Sodium [Fosamax] 70 mg PO SA 12/03/13 04/17/24 Clopidogrel [Plavix] 75 mg PO DAILY 12/03/13 04/17/24 Meclizine [Antivert] 25 mg PO DAILY 12/03/13 04/17/24 Omeprazole [PriLOSEC] 20 mg PO DAILY 12/03/13 04/17/24 Levothyroxine Sodium [Synthroid] 125 mcg PO DAILY 11/13/15 04/17/24 Nortriptyline HCl [Pamelor] 10 mg PO HS 03/15/17 04/17/24 HYDROcodone/APAP 7.5-325MG [[place] 1 tab PO BID PRN 07/24/18 04/17/24 7.5-325] Vitamin B Complex 1 cap PO DAILY 07/24/18 04/17/24 Calcium Citrate/Vitamin D3 1 tab PO DAILY 06/21/21 04/17/24 [Citracal + D Maximum Caplet] Carbidopa-Levodopa 25-100 mg 2 tab PO TID@1000,1600,2300 06/21/21 04/17/24 [Sinemet 25-100 mg] Cholecalciferol (Vitamin D3) 125 mcg PO DAILY 06/21/21 04/17/24 [Vitamin D3 (125 MCG = 5,000 IU)] Cyanocobalamin [Vitamin B-12] 500 mcg PO DAILY 04/17/24 04/17/24 Olmesartan Medoxomil [Benicar] 40 mg PO DAILY 04/17/24 04/17/24 Teriflunomide [Aubagio] 14 mg PO DAILY@0700 04/17/24 04/17/24 dilTIAZem HCL [dilTIAZem HCL 24Hr 180 mg PO DAILY 04/17/24 04/17/24 ER (CD)] modafiniL [Provigil] 100 mg PO DAILY PRN 04/17/24 04/17/24 Previous Rx's Medication Instructions Recorded Atorvastatin [Lipitor] 20 mg PO HS tab 03/17/17 Metoprolol Succinate (ER) [Toprol 25 mg PO DAILY #90 tab.er.24h 04/26/19 XL] Allergies Allergy/AdvReac Type Severity Reaction Status Date / Time doxycycline AdvReac upset Verified 04/17/24 14:37 stomach doxycycline hyclate AdvReac Vomiting Verified 04/17/24 14:37 [From Vibra-Tabs] isosorbide [From Imdur] AdvReac MIGRAINE Verified 04/17/24 14:37 HEADACHE Sulfa (Sulfonamide AdvReac Vomiting Verified 04/17/24 14:37 Antibiotics) Review of Systems ROS Statement: Those systems with pertinent positive or pertinent negative responses have been documented in the HPI. ROS Other: All systems not noted in ROS Statement are negative. Past Medical History Past Medical History: CVA/TIA, GERD/Reflux, Hyperlipidemia, Hypertension, Osteoarthritis (OA), Thyroid Disorder Additional Past Medical History / Comment(s): MS, migranes, 6 TIA's- rt side weakness, hiatal hernia, osteoporosis, heart murmr, palpitations, "leaky heart valve", Parkinson's, constipation, food getting stuck in esophagus History of Any Multi-Drug Resistant Organisms: None Reported Past Surgical History: Appendectomy, Cholecystectomy, Heart Catheterization, Hysterectomy, Orthopedic Surgery Additional Past Surgical History / Comment(s): left shoulder surgery, left elbow surgery, parathyroid surgery, arthroscopy left knee x4, b/l wrist carpal tunnel, cyst removed from left wrist, "eye surgery to scrape pimples off" Past Anesthesia/Blood Transfusion Reactions: Family History of Problems w/ Anesthesia, Postoperative Nausea & Vomiting (PONV) Additional Past Anesthesia/Blood Transfusion Reaction / Comment(s): Father had problem with anesthesia but not sure what. Past Psychological History: Anxiety Smoking Status: Never smoker Past Alcohol Use History: None Reported Past Drug Use History: None Reported - Past Family History Mother Family Medical History: Cancer, Deep Vein Thrombosis (DVT) Additional Family Medical History / Comment(s): KIDNEY Father Family Medical History: Cancer Additional Family Medical History / Comment(s): PROSTATE General Exam - General Exam Comments Initial Comments: PHYSICAL EXAM: General Impression: Alert and oriented x3, not in acute distress HEENT: Normocephalic atraumatic, extra-ocular movements intact, pupils equal and reactive to light bilaterally, mucous membranes moist. Cardiovascular: Heart regular rate and rhythm Chest: Able to complete full sentences, no retractions, no tachypnea Abdomen: abdomen soft, non-tender, non-distended, no organomegaly Musculoskeletal: Pulses present and equal in all extremities, no peripheral edema Motor: no focal deficits noted Neurological: CN II-XII grossly intact, no focal motor or sensory deficits noted Skin: Intact with no visualized rashes Psych: Normal affect and mood Limitations: no limitations Course Vital Signs 04/17/24 04/17/24 13:08 13:26 Temperature 98.1 F Pulse Rate 58 L 54 L Respiratory 20 12 Rate Blood Pressure 176/92 182/90 O2 Sat by Pulse 96 97 Oximetry EKG Findings - EKG Comments: EKG Findings:: My EKG interpretation: Ventricular rate 54, sinus bradycardia,. 197, QRS 156, QTc 410 right bundle branch block. No [place] prolongation, no QTC prolongation, no ST or T-wave changes noted. Overall, this EKG is unremarkable Medical Decision Making - Medical Decision Making Was pt. sent in by a medical professional or institution (, PA, DIRECTOR PROPERTY, urgent care, hospital, or senior care...) When possible be specific @ -No Did you speak to anyone other than the patient for history (EMS, parent, family, police, friend...)? What history was obtained from this source @ -No Did you review nursing and triage notes (agree or disagree)? Why? @ -I reviewed and agree with nursing and triage notes Were old charts reviewed (outside hosp., previous admission, EMS record, old EKG, old radiological studies, urgent care reports/EKG's, senior care records)? Report findings @ -No old charts were reviewed Differential Diagnosis (chest pain, altered mental status, abdominal pain women, abdominal pain men, vaginal bleeding, musculoskeletal, weakness, fever, dyspnea, syncope, headache, dizziness, GI bleed, back pain, seizure, CVA, palpatations, mental health)? @ -Differential Dyspnea: Coronary syndrome, arrhythmia, tamponade, asthma, COPD, pulmonary embolism, pneumonia, pneumothorax, pulmonary effusion, anaphylaxis, diabetic ketoacidosis, flailed chest, pulmonary contusion, diaphragmatic rupture, anemia, neuromuscular, this is not meant to be an all-inclusive list. EKG interpreted by me (3pts min.). @ -See above X-rays interpreted by me (1pt min.). @ -Chest x-ray shows no acute processes CT interpreted by me (1pt min.). @ -None done U/S interpreted by me (1pt. min.). @ -None done What testing was considered but not performed or refused? (CT, X-rays, U/S, labs)? Why? @ -None What meds were considered but not given or refused? Why? @ -None Was smoking cessation discussed for >3mins.? @ -No Were there social determinants of health that impacted care today? How? (Homelessness, low income, unemployed, alcoholism, drug addiction, transportation, low edu. Level, literacy, decrease access to med. care, [place] [facility], rehab)? @ -No Was there de-escalation of care discussed even if they declined (Discuss DNR or withdrawal of care, Hospice)? DNR status @ -No What co-morbidities impacted this encounter? (DM, HTN, Smoking, COPD, CAD, Cancer, CVA, ARF, Chemo, Hep., AIDS, mental health diagnosis, sleep apnea, morbid obesity)? @ -None Was patient admitted / discharged? Hospital course, mention meds given and route, prescriptions, significant lab abnormalities, going to OR and other pertinent info. @ -68-year-old female with a history of cardiomyopathy presents to the emergency department with dyspnea. Vital signs upon arrival are within acceptable limits. Laboratory evaluation obtained. Troponin 0.02, BNP of 873. X-ray shows no acute processes. Patient reevaluated bedside found to be stable to condition. D-dimer is age-adjusted normal. Will be admitted. Patient given aspirin. There is some concern for acute cardiac process especially given history of cardiomyopathy. Did you discuss the management of the patient with other professionals (professionals i.e. , PA, DIRECTOR PROPERTY, lab, RT, psych nurse, social work coordinator, gem setter, teacher, army senior officer, medical case worker)? Give summary @ -Case discussed with hospitalist for admission Was critical care preformed (if so, how long)? @ -No Undiagnosed new problem with uncertain prognosis? @ -No Drug Therapy requiring intensive monitoring for toxicity (Heparin, Nitro, Insulin, Cardizem)? @ -No Were any procedures done? @ -No Diagnosis/symptom? Acute, or Chronic, or Acute on Chronic? Uncomplicated (without systemic symptoms) or Complicated (systemic symptoms)? @ -Dyspnea Side effects of treatment? @ -No Exacerbation, Progression, or Severe Exacerbation? @ -No Poses a threat to life or bodily function? How? (Chest pain, USA, [place], pneumonia, PE, COPD, DKA, ARF, appy, cholecystitis, CVA, Diverticulitis, Homicidal, Suicidal, threat to staff... and all critical care pts) @ -yes - Lab Data Result diagrams: 04/17/24 13:43 04/17/24 13:43 Lab Results 04/17/24 04/17/24 04/17/24 Range/Units 13:43 13:43 13:43 WBC 11.9 H (3.8-10.6) k/uL RBC 4.51 (3.80-5.40) m/uL Hgb 13.6 (11.4-16.0) gm/dL Hct 42.6 (34.0-46.0) % MCV 94.4 (80.0-100.0) fL MCH 30.1 (25.0-35.0) pg MCHC 31.9 (31.0-37.0) g/dL RDW 14.4 (11.5-15.5) % Plt Count 165 (150-450) k/uL MPV 8.4 Neutrophils % 80 % Lymphocytes % 12 % Monocytes % 5 % Eosinophils % 2 % Basophils % 0 % Neutrophils # 9.5 H (1.3-7.7) k/uL Lymphocytes # 1.4 (1.0-4.8) k/uL Monocytes # 0.6 (0-1.0) k/uL Eosinophils # 0.2 (0-0.7) k/uL Basophils # 0.0 (0-0.2) k/uL PT 11.4 (10.0-12.5) sec INR 1.0 (<1.2) APTT 25.1 (22.0-30.0) sec D-Dimer 0.62 H (<0.60) mg/L FEU Sodium 142 (137-145) mmol/L Potassium 3.7 (3.5-5.1) mmol/L Chloride 109 H (98-107) mmol/L Carbon Dioxide 33 H (22-30) mmol/L Anion Gap 0 mmol/L BUN 22 H (7-17) mg/dL Creatinine 0.84 (0.52-1.04) mg/dL Est GFR (CKD-EPI)AfAm 83 (>60 ml/min/1.73 sqM) Est GFR (CKD-EPI)NonAf 72 (>60 ml/min/1.73 sqM) Glucose 90 (74-99) mg/dL Plasma Lactic Acid Destin (0.7-2.0) mmol/L Calcium 8.7 (8.4-10.2) mg/dL Magnesium 1.7 (1.6-2.3) mg/dL Total Bilirubin 1.0 (0.2-1.3) mg/dL AST 27 (14-36) U/L ALT 7 (4-34) U/L Alkaline Phosphatase 78 (38-126) U/L Troponin I (0.000-0.034) ng/mL NT-Pro-B Natriuret Pep 873 pg/mL Total Protein 6.1 L (6.3-8.2) g/dL Albumin 3.6 (3.5-5.0) g/dL 04/17/24 04/17/24 Range/Units 13:43 13:43 WBC (3.8-10.6) k/uL RBC (3.80-5.40) m/uL Hgb (11.4-16.0) gm/dL Hct (34.0-46.0) % MCV (80.0-100.0) fL MCH (25.0-35.0) pg MCHC (31.0-37.0) g/dL RDW (11.5-15.5) % Plt Count (150-450) k/uL MPV Neutrophils % % Lymphocytes % % Monocytes % % Eosinophils % % Basophils % % Neutrophils # (1.3-7.7) k/uL Lymphocytes # (1.0-4.8) k/uL Monocytes # (0-1.0) k/uL Eosinophils # (0-0.7) k/uL Basophils # (0-0.2) k/uL PT (10.0-12.5) sec INR (<1.2) APTT (22.0-30.0) sec D-Dimer (<0.60) mg/L FEU Sodium (137-145) mmol/L Potassium (3.5-5.1) mmol/L Chloride (98-107) mmol/L Carbon Dioxide (22-30) mmol/L Anion Gap mmol/L BUN (7-17) mg/dL Creatinine (0.52-1.04) mg/dL Est GFR (CKD-EPI)AfAm (>60 ml/min/1.73 sqM) Est GFR (CKD-EPI)NonAf (>60 ml/min/1.73 sqM) Glucose (74-99) mg/dL Plasma Lactic Acid Destin 0.9 (0.7-2.0) mmol/L Calcium (8.4-10.2) mg/dL Magnesium (1.6-2.3) mg/dL Total Bilirubin (0.2-1.3) mg/dL AST (14-36) U/L ALT (4-34) U/L Alkaline Phosphatase (38-126) U/L Troponin I 0.020 (0.000-0.034) ng/mL NT-Pro-B Natriuret Pep pg/mL Total Protein (6.3-8.2) g/dL Albumin (3.5-5.0) g/dL Disposition Clinical Impression: Dyspnea Disposition: ADMITTED IP TO THIS [facility] Condition: Fair Referrals: All Greenberg MD [Primary Care Provider] - 1-2 days Decision Time: 15:42
[2024-04-17 14:05] LABS: Basophils % (A) 0 %; Eosinophils # (A) 0.2 k/uL (0-0.7); Eosinophils % (A) 2 %; HCT 42.6 % (34.0-46.0); HGB 13.6 gm/dL (11.4-16.0); Lymphocytes # (A) 1.4 k/uL (1.0-4.8); Lymphocytes % (A) 12 %; MCH 30.1 pg (25.0-35.0); MCHC 31.9 g/dL (31.0-37.0); MCV 94.4 fL (80.0-100.0); Mean Platelet Volume 8.4; Monocytes # (A) 0.6 k/uL (0-1.0); Monocytes % (A) 5 %; Neutrophils # (A) 9.5 k/uL (1.3-7.7); Neutrophils % (A) 80 %; Platelet Count 165 k/uL (150-450); RBC 4.51 m/uL (3.80-5.40); RDW 14.4 % (11.5-15.5); WBC 11.9 k/uL (3.8-10.6)
--- NOTE | 2024-04-17 14:11 | XR ---
EXAMINATION TYPE: XR chest 2V DATE OF EXAM: 04/17/2024 1:56 PM COMPARISON: Chest radiographs from 06/21/2021 TECHNIQUE: XR chest 2V Frontal and lateral views of the chest. CLINICAL INDICATION:Female, 68 years old with history of dyspnea; FINDINGS: Lungs/Pleura: There is no evidence of pleural effusion, focal consolidation, or pneumothorax. Pulmonary vascularity: Unremarkable. Heart/mediastinum: Cardiomediastinal silhouette is mildly enlarged and stable. Musculoskeletal: No acute osseous pathology. IMPRESSION: 1. No acute cardiopulmonary disease/process. 2. Mild cardiomegaly. [facility], , 04/17/2024 2:09 PM
[2024-04-17 14:26] LABS: ALT 7 U/L (4-34); AST 27 U/L (14-36); African American GFR (CKD) 83 (>60 ml/min/1.73 sqM); Albumin 3.6 g/dL (3.5-5.0); Alkaline Phosphatase 78 U/L (38-126); Anion Gap 0 mmol/L; Blood Urea Nitrogen 22 mg/dL (7-17); Calcium 8.7 mg/dL (8.4-10.2); Carbon Dioxide 33 mmol/L (22-30); Chloride 109 mmol/L (98-107); Glucose 90 mg/dL (74-99); Magnesium 1.7 mg/dL (1.6-2.3); Non-African American GFR(CKD) 72 (>60 ml/min/1.73 sqM); Potassium 3.7 mmol/L (3.5-5.1); Sodium 142 mmol/L (137-145); Total Protein 6.1 g/dL (6.3-8.2)
[2024-04-17 14:34] LABS: NT-Pro-B-Type Natriuretic Pept 873 pg/mL
[2024-04-17 14:49] LABS: Partial Thromboplastin Time 25.1 sec (22.0-30.0); Prothrombin Time 11.4 sec (10.0-12.5)
[2024-04-17] MEDS ORDERED: NITROGLYCERIN SL TABS 0.4 MG TAB SUBLINGUAL PRN (15:34)
[2024-04-17] MEDS: ASPIRIN 81 MG PO STA (15:43)
[2024-04-17] MEDS ORDERED: HYDROcodone/APAP 7.5-325MG 1 EACH TAB PO PRN (18:53)
[2024-04-17] MEDS ORDERED: modafiniL 100 MG TAB PO PRN (18:53)
[2024-04-17] MEDS ORDERED: ONDANSETRON 4 MG/2 ML VIAL IVP PRN (18:55)
[2024-04-17] MEDS ORDERED: ACETAMINOPHEN TAB 325 MG TAB PO PRN (18:55)
[2024-04-17] MEDS ORDERED: NORTRIPTYLINE 10 MG CAP PO SCH (21:00)
[2024-04-17] MEDS: ATORVASTATIN 20 MG TAB PO SCH (21:07)
[2024-04-17] MEDS: CARBIDOPA-LEVODOPA 25-100 MG 1 EACH TAB PO SCH (21:08)
--- NOTE | 2024-04-17 21:22 | CT ---
EXAMINATION TYPE: CT angio chest DATE OF EXAM: 04/17/2024 8:59 PM COMPARISON: Chest radiograph from same day. CLINICAL INDICATION: Female, 68 years old with history of elevated d dimer, sob; FLORIDALMA TECHNIQUE/CONTRAST: CTA scan of the thorax is performed with IV Contrast, patient injected with 60 mL of Isovue 370, MIP images are created and reviewed these are created on a separate workstation.. CT DLP: 422.9 mGycm, Automated exposure control for dose reduction was used. FINDINGS: Lungs/Pleura: No evidence of focal consolidation, pleural effusion or pneumothorax. Airway: Large airways are patent. Heart: The heart is mildly enlarged for size. Atherosclerosis of the arterial vasculature. Vasculature: There is no evidence for a filling defect within the pulmonary vasculature to suggest [place] pulmonary embolism. The pulmonary artery is of normal size. Mediastinum: No gross evidence of adenopathy. Musculoskeletal: Mild degenerative disc disease changes are present throughout the thoracolumbar spin e. Soft Tissues/lymph nodes: Unremarkable. Lower neck: No significant findings. Upper Abdomen: No significant findings. IMPRESSION: 1. No evidence of pulmonary embolism. 2. Trace right pleural effusion with cardiomegaly correlate with serum BNP. [facility], , 04/17/2024 9:19 PM
[2024-04-18] MEDS: PANTOPRAZOLE 40 MG TABLET PO SCH (05:51)
[2024-04-18] MEDS: LEVOTHYROXINE 125 MCG TAB PO SCH (05:51)
[2024-04-18 06:24] LABS: Glucose,Whole Blood 82 mg/dL (70-110)
[2024-04-18 06:53] VITALS: RESP 16
[2024-04-18] MEDS: CYANOCOBALAMIN 500 MCG TAB PO SCH (07:56)
[2024-04-18] MEDS: CALCIUM CARB-VIT D 500 MG-5 MCG TAB PO SCH (07:57)
[2024-04-18] MEDS: ASPIRIN 325 MG TAB PO SCH (07:57)
[2024-04-18] MEDS: CHOLECALCIFEROL 125 MCG (5000 IU) TABLET PO SCH (07:57)
[2024-04-18] MEDS: LOSARTAN 50 MG TAB PO SCH (07:57)
[2024-04-18] MEDS: CLOPIDOGREL 75 MG TAB PO SCH (07:57)
[2024-04-18] MEDS: MECLIZINE 25 MG TAB PO SCH (07:57)
[2024-04-18] MEDS ORDERED: METOPROLOL SUCCINATE (ER) 25 MG TAB.ER.24H PO SCH (09:00)
[2024-04-18] MEDS ORDERED: DILTIAZEM CD 180 MG CAP.ER.24H PO SCH (09:00)
[2024-04-18 10:25] LABS: Chol/HDL Ratio 2.91 Ratio; LDL Cholesterol,Calculated 92.5 mg/dL (0.0-131.0)
[2024-04-18 12:33] LABS: Glucose,Whole Blood 84 mg/dL (70-110)
[2024-04-18 13:23] VITALS: PULSE 62; TEMP 98.2
[2024-04-18] MEDS: hydroCHLOROthiazide 25 MG TAB PO SCH (13:23)
--- NOTE | 2024-04-18 13:35 | P.CRDCN ---
History of Present Illness Consult date: 04/18/24 Requesting physician: Hannah Pryor Reason for Consult (text): dyspnea, chest pain Chief complaint: heavy breathing, weakness, lightheadedness History of present illness: This is a pleasant 68-year-old female patient of Dr. Cantu with past medical history of hypertension, hyperlipidemia, MS and Parkinson's disease. She was recently treated with a prednisone taper for MS exacerbation stop this on Monday. She also recently ran out of her Benicar HCT and has been taking Benicar 40 mg daily since Monday.. Presented to the hospital with complaints of heavy breathing, weakness and lightheadedness that is progressively been worsening over the last 3 days. She did check her blood pressure prior to coming to the hospital and her systolic blood pressure was in the 160s.. Diagnostics -EKG: Sinus rhythm with no evidence of ischemia -Chest x-ray: No acute cardiopulmonary disease/process, mild cardiomegaly -Chest CTA: No evidence of pulmonary embolism -Laboratory studies: White blood cell count 11.9, BUN 22, creatinine 0.84, troponin 0.02, 0.015 and 0.016, NT proBNP 873 -Home cardiac medications: Benicar HCT 40-25 mg daily, metoprolol succinate 25 mg daily, Plavix 75 mg daily, diltiazem 180 mg daily atorvastatin 20 mg daily. -Prior stress test: Unknown -Echocardiogram: June 2021, EF 50 to 55%, mild MR and mild TR -Cardiac catheterization: April 2019, mild intimal disease involving the proximal left anterior descending artery Review Of Systems: At the time of my exam: CONSTITUTIONAL: Denies fever or chills. HEENT: Denies blurred vision, vision changes. CARDIOVASCULAR: Denies chest pain. Denies orthopnea. Denies PND. Denies palpitations, dizziness, or syncope. RESPIRATORY: Denies shortness of breath, wheezing, or cough. Denies hemoptysis. GASTROINTESTINAL: Denies abdominal pain. Denies nausea or vomiting. Denies bleeding. HEMATOLOGIC: Denies bleeding disorders. GENITOURINARY: Denies hematuria. SKIN: Denies puritis. Denies rash. PHYSICAL EXAMINATION: This is a 68-year-old female in no apparent distress at the time of my examination. VITAL SIGNS: Reviewed. HEENT: Head is atraumatic, normocephalic. Pupils are equal, round. Sclerae anicteric. Conjunctivae are clear. Mucous membranes of the mouth are moist. Neck is supple. There is no elevated jugular venous pressure. No carotid bruit is heard. CHEST EXAMINATION: Clear to auscultation bilaterally. No wheezes rales or rhonchi. Respirations even and nonlabored. HEART EXAMINATION: Heart regular, positive S1 and S2. No S3. No S4. Soft systolic murmur ABDOMEN: Soft, nontender. Bowel sounds are heard. No organomegaly noted. EXTREMITIES: 2+ peripheral pulses with no evidence of peripheral edema and no calf tenderness noted. NEUROLOGIC EXAMINATION: Patient is awake, alert and oriented x3. Assessment: 1. Symptoms of heavy breathing, lightheadedness and weakness, likely secondary to hypertension, acute coronary event has been ruled out 2. Uncontrolled hypertension 3. Hyperlipidemia 4. MS Plan: From cardiology's perspective we will resume hydrochlorothiazide. She will be discharged home on Benicar HCT 4025 1 tablet daily. Patient may be discharged home and follow-up as an outpatient. She will monitor her blood pressure at home. Thank you kindly for this consultation. Nurse practitioner note has been reviewed, I agree with documented findings and plan of care. Patient was seen and examined. Past Medical History Past Medical History: CVA/TIA, GERD/Reflux, Hyperlipidemia, Hypertension, Osteoarthritis (OA), Thyroid Disorder Additional Past Medical History / Comment(s): MS, migranes, 6 TIA's- rt side weakness, hiatal hernia, osteoporosis, heart murmr, palpitations, "leaky heart valve", Parkinson's, constipation, food getting stuck in esophagus, enlarged heart History of Any Multi-Drug Resistant Organisms: None Reported Past Surgical History: Appendectomy, Cholecystectomy, Heart Catheterization, Hysterectomy, Orthopedic Surgery Additional Past Surgical History / Comment(s): left shoulder surgery, left elbow surgery, parathyroid surgery, arthroscopy left knee x4, b/l wrist carpal tunnel, cyst removed from left wrist, "eye surgery to scrape pimples off" Past Anesthesia/Blood Transfusion Reactions: Family History of Problems w/ Anesthesia, Postoperative Nausea & Vomiting (PONV) Additional Past Anesthesia/Blood Transfusion Reaction / Comment(s): Father had problem with anesthesia but not sure what. Past Psychological History: Anxiety Smoking Status: Never smoker Past Alcohol Use History: None Reported Past Drug Use History: None Reported - Past Family History Mother Family Medical History: Cancer, Deep Vein Thrombosis (DVT) Additional Family Medical History / Comment(s): KIDNEY Father Family Medical History: Cancer Additional Family Medical History / Comment(s): PROSTATE Medications and Allergies Home Medications Medication Instructions Recorded Confirmed Type Alendronate Sodium [Fosamax] 70 mg PO SA 12/03/13 04/17/24 History Clopidogrel [Plavix] 75 mg PO DAILY 12/03/13 04/17/24 History Meclizine [Antivert] 25 mg PO DAILY 12/03/13 04/17/24 History Omeprazole [PriLOSEC] 20 mg PO DAILY 12/03/13 04/17/24 History Levothyroxine Sodium [Synthroid] 125 mcg PO DAILY 11/13/15 04/17/24 History Nortriptyline HCl [Pamelor] 10 mg PO HS 03/15/17 04/17/24 History Atorvastatin [Lipitor] 20 mg PO HS tab 03/17/17 04/17/24 Rx HYDROcodone/APAP 7.5-325MG [[place] 1 tab PO BID PRN 07/24/18 04/17/24 History 7.5-325] Vitamin B Complex 1 cap PO DAILY 07/24/18 04/17/24 History Metoprolol Succinate (ER) [Toprol 25 mg PO DAILY #90 tab.er.24h 04/26/19 04/17/24 Rx XL] Calcium Citrate/Vitamin D3 1 tab PO DAILY 06/21/21 04/17/24 History [Citracal + D Maximum Caplet] Carbidopa-Levodopa 25-100 mg 2 tab PO TID@1000,1600,2300 06/21/21 04/17/24 History [Sinemet 25-100 mg] Cholecalciferol (Vitamin D3) 125 mcg PO DAILY 06/21/21 04/17/24 History [Vitamin D3 (125 MCG = 5,000 IU)] Cyanocobalamin [Vitamin B-12] 500 mcg PO DAILY 04/17/24 04/17/24 History Olmesartan Medoxomil [Benicar] 40 mg PO DAILY 04/17/24 04/17/24 History Teriflunomide [Aubagio] 14 mg PO DAILY@0700 04/17/24 04/17/24 History dilTIAZem HCL [dilTIAZem HCL 24Hr 180 mg PO DAILY 04/17/24 04/17/24 History ER (CD)] modafiniL [Provigil] 100 mg PO DAILY PRN 04/17/24 04/17/24 History Allergies Allergy/AdvReac Type Severity Reaction Status Date / Time doxycycline AdvReac upset Verified 04/17/24 14:37 stomach doxycycline hyclate AdvReac Vomiting Verified 04/17/24 14:37 [From Vibra-Tabs] isosorbide [From Imdur] AdvReac MIGRAINE Verified 04/17/24 14:37 HEADACHE Sulfa (Sulfonamide AdvReac Vomiting Verified 04/17/24 14:37 Antibiotics) Physical Exam Vitals: Vital Signs Temp Pulse Pulse Resp BP BP Pulse Ox 04/18/24 13:20 98.2 F 62 16 170/82 95 04/18/24 06:16 97.8 F 52 L 16 188/81 97 04/18/24 03:29 98.1 F 53 L 18 160/81 99 04/17/24 22:48 97.5 F L 49 L 18 160/76 96 04/17/24 21:29 98.4 F 55 L 18 153/68 98 04/17/24 18:00 98.3 F 51 L 16 176/83 97 04/17/24 17:20 98.3 F 50 L 16 176/73 97 04/17/24 16:00 50 L 16 182/90 97 Intake and Output 04/17/24 04/18/24 04/18/24 22:59 06:59 14:59 Other: # Voids 1 Weight 81.647 kg Results 04/17/24 13:43 04/17/24 13:43 Cardiac Enzymes 04/17/24 04/17/24 04/17/24 Range/Units 13:43 13:43 16:55 AST 27 (14-36) U/L Troponin I 0.020 0.015 (0.000-0.034) ng/mL 04/17/24 Range/Units 19:44 AST (14-36) U/L Troponin I 0.016 (0.000-0.034) ng/mL Coagulation 04/17/24 Range/Units 13:43 PT 11.4 (10.0-12.5) sec APTT 25.1 (22.0-30.0) sec Lipids 04/18/24 Range/Units 04:35 Triglycerides 66.00 (0.00-149.00) mg/dL Cholesterol 161.00 (0.00-200.00) mg/dL HDL Cholesterol 55.30 (40.00-60.00) mg/dL Cholesterol/HDL Ratio 2.91 Ratio CBC 04/17/24 Range/Units 13:43 WBC 11.9 H (3.8-10.6) k/uL RBC 4.51 (3.80-5.40) m/uL Hgb 13.6 (11.4-16.0) gm/dL Hct 42.6 (34.0-46.0) % Plt Count 165 (150-450) k/uL Comprehensive Metabolic Panel 04/17/24 Range/Units 13:43 Sodium 142 (137-145) mmol/L Potassium 3.7 (3.5-5.1) mmol/L Chloride 109 H (98-107) mmol/L Carbon Dioxide 33 H (22-30) mmol/L BUN 22 H (7-17) mg/dL Creatinine 0.84 (0.52-1.04) mg/dL Glucose 90 (74-99) mg/dL Calcium 8.7 (8.4-10.2) mg/dL AST 27 (14-36) U/L ALT 7 (4-34) U/L Alkaline Phosphatase 78 (38-126) U/L Total Protein 6.1 L (6.3-8.2) g/dL Albumin 3.6 (3.5-5.0) g/dL Current Medications Generic Name Dose Route Start Last Admin Trade Name Freq PRN Reason Stop Dose Admin Acetaminophen 650 mg 04/17/24 18:55 Acetaminophen Tab 325 Mg Tab PO Q6HR PRN Fever and/ or Pain Hydrocodone Bitart/Acetaminophen 1 each 04/17/24 18:53 Hydrocodone/Apap 7.5-325mg 1 Each Tab PO BID PRN Pain Aspirin 325 mg 04/18/24 09:00 04/18/24 07:57 Aspirin 325 Mg Tab PO 325 mg DAILY RONDA Administration Atorvastatin Calcium 20 mg 04/17/24 21:00 04/17/24 21:07 Atorvastatin 20 Mg Tab PO 20 mg HS RONDA Administration Calcium Carbonate 1 each 04/18/24 09:00 04/18/24 07:57 Calcium Carb-Vit D 500 Mg-5 Mcg Tab PO 1 each DAILY RONDA Administration Carbidopa/Levodopa 2 each 04/17/24 23:00 04/18/24 07:57 Carbidopa-Levodopa 25-100 Mg 1 Each Tab PO 2 each TID@1000,1600,2300 RONDA Administration Cholecalciferol 125 mcg 04/18/24 09:00 04/18/24 07:57 Cholecalciferol 125 Mcg (5000 Iu) Tablet PO 125 mcg DAILY RONDA Administration Clopidogrel Bisulfate 75 mg 04/18/24 09:00 04/18/24 07:57 Clopidogrel 75 Mg Tab PO 75 mg DAILY RONDA Administration Cyanocobalamin 500 mcg 04/18/24 09:00 04/18/24 07:56 Cyanocobalamin 500 Mcg Tab PO 500 mcg DAILY RONDA Administration Hydrochlorothiazide 25 mg 04/18/24 13:15 04/18/24 13:23 Hydrochlorothiazide 25 Mg Tab PO 25 mg DAILY RONDA Administration Levothyroxine Sodium 125 mcg 04/18/24 06:30 04/18/24 05:51 Levothyroxine 125 Mcg Tab PO 125 mcg DAILY@0630 RONDA Administration Losartan Potassium 150 mg 04/18/24 09:00 04/18/24 07:57 Losartan 50 Mg Tab PO 150 mg DAILY RONDA Administration Meclizine HCl 25 mg 04/18/24 09:00 04/18/24 07:57 Meclizine 25 Mg Tab PO 25 mg DAILY RONDA Administration Modafinil 100 mg 04/17/24 18:53 Modafinil 100 Mg Tab PO DAILY PRN Fatigue Nitroglycerin 0.4 mg 04/17/24 15:34 Nitroglycerin Sl Tabs 0.4 Mg Tab SUBLINGUAL Q5M PRN Chest Pain Ondansetron HCl 4 mg 04/17/24 18:55 Ondansetron 4 Mg/2 Ml Vial IVP Q6HR PRN Nausea And Vomiting Pantoprazole Sodium 40 mg 04/18/24 07:30 04/18/24 05:51 Pantoprazole 40 Mg Tablet PO 40 mg [id number] RONDA Administration Intake and Output 04/17/24 04/18/24 04/18/24 22:59 06:59 14:59 Other: # Voids 1 Weight 81.647 kg 04/17/24 13:43 04/17/24 13:43
--- NOTE | 2024-04-18 14:45 | P.HPIM ---
History of Present Illness This is a pleasant 68 years old female with past medical historyOf multiple medical problems as below including previous history of TIA, MS hypothyroidism, hypertension, hyperlipidemia Patient presents because of high blood pressure. On presentation blood pressure was 176/92, currently slightly better 170/82 Patient has some symptoms of lightheadedness, heavy breathing and weakness, most likely related to her high blood pressure, which was the same impression of the pipe layer. Patient symptoms improved with better control of her blood pressure Patient also she has history of MS and she has been having a flareup for about 3 weeks, she follow-up with her neurologist Dr. szymanski and his nurse practitioner Tona. She was recently prescribed prednisone but now she does not take prednisone anymore. She still have some residual numbness in her fingertips, and lips for the last 3 weeks. However the patient does not think she has any TIA,. She states " I know when I have a TIA, I have 16 TIAs before and I do not think I have TIA right now" patient also denies any other specific neurological symptoms, no vertigo, no headache, no new weakness or tingling/numbness, no double vision or blurred vision. No slurred speech No GI/ symptoms Patient denies smoking alcohol or illicit drugs. Patient already seen by pipe layer and cleared her for discharge. Patient agrees but she wants to wait little bit. I offered to keep monitoring her but she refuses and wants to go home today. She lives alone as her is in correction. She is afebrile She has unremarkable CBC, BMP, LFT and INR WBC slightly up at 11.9 most likely to recent steroid use and she can follow-up outpatient D-dimer was mildly elevated at 0.6 CT of the chest negative for PE EKG showing heart rate of 58 with sinus bradycardia with no significant ST-T changes Troponin x 3 are negative. Review of Systems Review of systems CONSTITUTIONAL: No fever, no malaise, no fatigue. HEENT: No recent visual problems or hearing problems. Denied any sore throat. CARDIOVASCULAR: No orthopnea, PND, no palpitations, no syncope. PULMONARY: No shortness of breath, no cough, no hemoptysis. GASTROINTESTINAL: No diarrhea, no nausea, no vomiting, no abdominal pain. Normoactive bowel sounds. NEUROLOGICAL: No headaches, no weakness, no numbness. HEMATOLOGICAL: Denies any bleeding or petechiae. GENITOURINARY: Denies any burning micturition, frequency, or urgency. MUSCULOSKELETAL/RHEUMATOLOGICAL: Denies any joint pain, swelling, or any muscle pain. ENDOCRINE: Denies any polyuria or polydipsia. Past Medical History Past Medical History: CVA/TIA, GERD/Reflux, Hyperlipidemia, Hypertension, Osteoarthritis (OA), Thyroid Disorder Additional Past Medical History / Comment(s): MS, migranes, 6 TIA's- rt side weakness, hiatal hernia, osteoporosis, heart murmr, palpitations, "leaky heart valve", Parkinson's, constipation, food getting stuck in esophagus, enlarged heart History of Any Multi-Drug Resistant Organisms: None Reported Past Surgical History: Appendectomy, Cholecystectomy, Heart Catheterization, Hysterectomy, Orthopedic Surgery Additional Past Surgical History / Comment(s): left shoulder surgery, left elbow surgery, parathyroid surgery, arthroscopy left knee x4, b/l wrist carpal tunnel, cyst removed from left wrist, "eye surgery to scrape pimples off" Past Anesthesia/Blood Transfusion Reactions: Family History of Problems w/ Anesthesia, Postoperative Nausea & Vomiting (PONV) Additional Past Anesthesia/Blood Transfusion Reaction / Comment(s): Father had problem with anesthesia but not sure what. Past Psychological History: Anxiety Smoking Status: Never smoker Past Alcohol Use History: None Reported Past Drug Use History: None Reported - Past Family History Mother Family Medical History: Cancer, Deep Vein Thrombosis (DVT) Additional Family Medical History / Comment(s): KIDNEY Father Family Medical History: Cancer Additional Family Medical History / Comment(s): PROSTATE Medications and Allergies Home Medications Medication Instructions Recorded Confirmed Type Alendronate Sodium [Fosamax] 70 mg PO SA 12/03/13 04/17/24 History Clopidogrel [Plavix] 75 mg PO DAILY 12/03/13 04/17/24 History Meclizine [Antivert] 25 mg PO DAILY 12/03/13 04/17/24 History Omeprazole [PriLOSEC] 20 mg PO DAILY 12/03/13 04/17/24 History Levothyroxine Sodium [Synthroid] 125 mcg PO DAILY 11/13/15 04/17/24 History Nortriptyline HCl [Pamelor] 10 mg PO HS 03/15/17 04/17/24 History Atorvastatin [Lipitor] 20 mg PO HS tab 03/17/17 04/17/24 Rx HYDROcodone/APAP 7.5-325MG [[place] 1 tab PO BID PRN 07/24/18 04/17/24 History 7.5-325] Vitamin B Complex 1 cap PO DAILY 07/24/18 04/17/24 History Metoprolol Succinate (ER) [Toprol 25 mg PO DAILY #90 tab.er.24h 04/26/19 04/17/24 Rx XL] Calcium Citrate/Vitamin D3 1 tab PO DAILY 06/21/21 04/17/24 History [Citracal + D Maximum Caplet] Carbidopa-Levodopa 25-100 mg 2 tab PO TID@1000,1600,2300 06/21/21 04/17/24 History [Sinemet 25-100 mg] Cholecalciferol (Vitamin D3) 125 mcg PO DAILY 06/21/21 04/17/24 History [Vitamin D3 (125 MCG = 5,000 IU)] Cyanocobalamin [Vitamin B-12] 500 mcg PO DAILY 04/17/24 04/17/24 History Olmesartan Medoxomil [Benicar] 40 mg PO DAILY 04/17/24 04/17/24 History Teriflunomide [Aubagio] 14 mg PO DAILY@0700 04/17/24 04/17/24 History dilTIAZem HCL [dilTIAZem HCL 24Hr 180 mg PO DAILY 04/17/24 04/17/24 History ER (CD)] modafiniL [Provigil] 100 mg PO DAILY PRN 04/17/24 04/17/24 History Allergies Allergy/AdvReac Type Severity Reaction Status Date / Time doxycycline AdvReac upset Verified 04/17/24 14:37 stomach doxycycline hyclate AdvReac Vomiting Verified 04/17/24 14:37 [From Vibra-Tabs] isosorbide [From Imdur] AdvReac MIGRAINE Verified 04/17/24 14:37 HEADACHE Sulfa (Sulfonamide AdvReac Vomiting Verified 04/17/24 14:37 Antibiotics) Physical Exam Vitals: Vital Signs Temp Pulse Pulse Resp BP BP Pulse Ox 04/18/24 13:20 98.2 F 62 16 170/82 95 04/18/24 06:16 97.8 F 52 L 16 188/81 97 04/18/24 03:29 98.1 F 53 L 18 160/81 99 04/17/24 22:48 97.5 F L 49 L 18 160/76 96 04/17/24 21:29 98.4 F 55 L 18 153/68 98 04/17/24 18:00 98.3 F 51 L 16 176/83 97 04/17/24 17:20 98.3 F 50 L 16 176/73 97 04/17/24 16:00 50 L 16 182/90 97 Intake and Output 04/17/24 04/18/24 04/18/24 22:59 06:59 14:59 Other: # Voids 1 Weight 81.647 kg GENERAL: The patient is alert and oriented x3, not in any acute distress. Well developed, well nourished. HEENT: Pupils are round and equally reacting to light. EOMI. No scleral icterus. No conjunctival pallor. Normocephalic, atraumatic. No pharyngeal erythema. No thyromegaly. CARDIOVASCULAR: S1 and S2 present. No murmurs, rubs, or gallops. PULMONARY: Chest is clear to auscultation, no wheezing , no crackles. ABDOMEN: Soft, nontender, nondistended, normoactive bowel sounds. No palpable organomegaly. MUSCULOSKELETAL: No joint swelling or deformity. EXTREMITIES: No cyanosis, clubbing, or pedal edema. NEUROLOGICAL: Gross neurological examination did not reveal any focal deficits. SKIN: No rashes. no petechiae. Results CBC & Chem 7: 04/17/24 13:43 04/17/24 13:43 Labs: Abnormal Lab Results - Last 24 Hours (Table) 04/17/24 Range/Units 13:43 D-Dimer 0.62 H (<0.60) mg/L FEU Assessment and Plan Assessment: Hypertension, uncontrolled. Present on admission Lightheadedness, heavy breathing and generalized weakness related to high blood pressure MS any flareup for the last 3 weeks and she follow-up with Dr. szymanski office and she is supposed to get MRI as an outpatient. Currently patient is off steroids and she was counseled about side effects of this medication Obesity with BMI of 37.6 Plan: Resume blood pressure medication including losartan 150 mg [employer] added hydrochlorothiazide. Also they recommended Benicar but patient is already on losartan GI and DVT prophylaxis Cardiology team already cleared the patient for discharge and she wants to go. Possible discharge once blood pressure controlled and hypertension medication verified Patient counseled about the importance of follow-up with PCP in 1 week, Dr. Cantu in 1 week and her neurologist Dr. Rima elam in 1 week and she agrees
[2024-04-18 15:18] VITALS: BP 161/80
== END 2024-04-18 15:58 | disposition home or self-care (01) ==
LOC: EC 13:03 → 6NMEDSUR 15:36
PROVIDERS: ADMIT Hospitalist; ATTEND Hospitalist
DX: R42 Dizziness and giddiness (principal); R53.1 Weakness; I10 Essential (primary) hypertension; E78.5 Hyperlipidemia, unspecified; G35 Multiple sclerosis; K21.9 Gastro-esophageal reflux disease without esophagitis; F41.9 Anxiety disorder, unspecified; G20.A1 Parkinson's disease without dyskinesia, without mention of fluctuations; I69.351 Hemiplegia and hemiparesis following cerebral infarction affecting right dominant side; E66.9 Obesity, unspecified; Z68.37 Body mass index [BMI] 37.0-37.9, adult; Z79.83 Long term (current) use of bisphosphonates; Z79.02 Long term (current) use of antithrombotics/antiplatelets; Z79.890 Hormone replacement therapy; Z79.899 Other long term (current) drug therapy; Z88.1 Allergy status to other antibiotic agents; Z88.2 Allergy status to sulfonamides
CPT/HCPCS: 99285; 36415; 93005; 85379; 83880; 80061; 80053; 83605; 83735; 84484; 85025; 85610; 85730; 71046; 71275; G0378 ×2; Q9967